=== PATIENT | female | born 1975 | race African-American/Black ===

== ENCOUNTER 2017-05-05 15:54 | Inpatient (IN) ==
[2017-05-05] MEDS ORDERED: Ipratropium/Albuterol Neb 3 ML IH ONE (16:12)
[2017-05-05] MEDS ORDERED: 0.9 % Sodium Chloride 1,000 ML IVC ONE (16:13)
[2017-05-05] MEDS ORDERED: methylPREDNISolone 125 MG/2 ML VIAL IVP ONE (16:13)
--- NOTE | 2017-05-05 16:24 | Emergency Department Note ---
Disposition Clinical Impression: Bilateral pulmonary embolism, Hypoxia Disposition: Admitted As Inpatient Condition: Serious General Adult HPI - General Stated complaint: CRISTOFER, Low O2 Time Seen by Provider: 05/05/17 16:05 Source: patient Nursing Notes Reviewed: Yes Vital Signs Reviewed: Yes - History of Present Illness HPI Narrative: 42-year-old female with history of PE times one year ago was placed on home oxygen after that admission 4 L of home has chief complaint of hypoxia 90 degrees O2 sat at home and worsening cough and congestion 5 days. Patient is currently not on any anticoagulants secondary to bleeding issues while on Xarelto. Pain Scale: 0 - Related Data Home Medications Medication Instructions Recorded Confirmed Albuterol Neb [Proventil Neb] 2.5 mg IH TID 02/13/16 06/15/16 Baclofen [Lioresal] 10 mg PO BID 02/13/16 06/15/16 Metoclopramide [Reglan] 10 mg PO QAM 02/13/16 06/15/16 Ranitidine HCl [Heartburn Relief] 150 mg PO DAILY 02/13/16 06/15/16 Simvastatin [Zocor] 20 mg PO DAILY 02/13/16 06/15/16 Polyethylene Glycol 3350 [MiraLAX] 17 gm PO DAILY PRN 03/12/16 06/15/16 Aspirin [Lo-Dose Aspirin EC] 81 mg PO DAILY 05/08/16 06/15/16 Acetaminophen [Tylenol] 650 mg PO Q6HR PRN 06/15/16 06/15/16 Ferrous Sulfate Oral Soln 220 mg PO DAILY 06/15/16 06/15/16 Lidocaine OINT 1 appl TP DAILY 06/15/16 06/15/16 Previous Rx's Medication Instructions Recorded Clindamycin [Cleocin] 300 mg PO Q8HR 7 Days capsule 06/21/16 Desmopressin Acetate [Ddavp] 0.4 mg PO TID 30 Days tablet 06/21/16 Nutritional Supplement [Ensure] 113 gm PO TIDWM 30 Days container 06/21/16 Allergies Allergy/AdvReac Type Severity Reaction Status Date / Time No Known Allergies Allergy Verified 05/05/17 16:09 Review of Systems: Report by family states no fever no vomiting. No diarrhea. Patient has cough and chest congestion with audible wheezing. Limitations: ROS unobtainable due to patients medical condition Constitutional: Denies: fever Respiratory: Reports: cough, dyspnea, wheezes Past Medical History - Past Medical History Source: obtained from family Medical history: Reports: diabetes, GERD, other Psychiatric history: Reports: no psych history - Social History Smoking Status: Never smoker Smokeless Tobacco Status: No Alcohol use: Reports: none Drug use: Reports: none Physical Exam Vital Signs Temperature 98.2 F 05/05/17 16:02 Pulse Rate 111 05/05/17 16:02 Respiratory Rate 18 05/05/17 16:02 Blood Pressure 139/99 05/05/17 16:02 O2 Sat by Pulse Oximetry 97 05/05/17 16:02 Temperature 98.2 F 05/05/17 16:02 Pulse Rate 111 05/05/17 16:02 Respiratory Rate 18 05/05/17 16:02 Blood Pressure 139/99 05/05/17 16:02 O2 Sat by Pulse Oximetry 97 05/05/17 16:02 Oxygen Delivery Oxygen Delivery Nasal Cannula 42-year-old female who is alert and oriented but unable to answer questions secondary to patient's condition of MRDD. Patient has audible wheezing and wet sounding cough. - General Limitations: language barrier General appearance: alert, in no apparent distress - Head Head exam: atraumatic, normocephalic, normal inspection - Eye Eye exam: Present: normal appearance, PERRL, EOMI. Absent: scleral icterus - ENT ENT exam: mucous membranes moist - Neck Neck exam: Present: normal inspection, full ROM, trachea midline - Chest Chest inspection: Present: normal inspection, symmetric chest wall rise. Absent : tenderness, rash - Respiratory Respiratory exam: Present: wheezes (Wheezes auscultated bilateral lung booker). Absent: normal lung sounds bilaterally - Cardiovascular Cardiovascular exam: Present: tachycardia - Abdominal Exam Abdominal exam: Present: soft, Non-Tender. Absent: tenderness, distention, guarding, rebound, rigidity - Extremities Exam Extremities exam: Present: normal capillary refill. Absent: pedal edema Course - Consultations Consultation #1: Radiology called and stated that Pt has bilateral PE. Time: 19:02 Vital Signs Temperature 98.2 F 05/05/17 16:02 Pulse Rate 111 05/05/17 16:02 Respiratory Rate 18 05/05/17 16:02 Blood Pressure 139/99 05/05/17 16:02 O2 Sat by Pulse Oximetry 97 05/05/17 16:02 Temperature 98.2 F 05/05/17 16:02 Pulse Rate 98 05/05/17 16:50 Respiratory Rate 18 05/05/17 20:08 Blood Pressure 128/62 05/05/17 20:08 O2 Sat by Pulse Oximetry 100 05/05/17 16:50 Oxygen Delivery Oxygen Delivery Nasal Cannula Medical Decision Making - Lab Data Result diagrams: 05/05/17 16:10 05/05/17 16:10 - Radiology Data Radiology results reviewed: Yes I reviewed the patient's radiology results. - EKG Data EKG #1 EKG attestation: Yes I reviewed and interpreted this EKG. EKG results narrative: EKG taken into April 2017 1637 hrs. shows a sinus tachycardia at a rate of 10 2 bpm with no acute ST elevations or depressions in any leads, no QS widening or QT prolongations. This EKG was compared to previous EKG taken at 2015 which shows a sinus tachycardia at a rate of 1 29 bpm. Both EKGs are characteristic for shortened DC intervals with no Slurring of the QRS. Critical Care Time Critical Care Time: No
--- NOTE | 2017-05-05 16:39 | Emergency Department Note ---
START Narrative - START START: I examined this patient and my medical decision-making was reviewed with the Resident Physician. I agree with the documented findings, disposition and treatment plan as described except to the extent set forth below. 42-year-old female with a history of MRDD presents with shortness of breath and wheezing. Worse over the past 5 days. Wears chronic home oxygen. She wears 4 L chronically. She is remaining at 4 L. The family has noticed increasing difficulty in breathing as well as increased wheezing and coughing. No documented fevers. She does have a history of mucous plugging secondary to pneumonia. She has had a previous bronchoscopy before for this mucous plugging. She has been compliant with her home breathing treatments. No sick contacts at home. We will workup from a respiratory and cardiac standpoint. Patient will need to be admitted based on physical exam. Patient has a high risk for aspiration pneumonia. Possible CT of the chest pending her d-dimer. There was a history of a possible pulmonary embolus one year ago per the family. She had been on Xarelto but had bleeding complications and had to have a blood transfusion so they stopped it. In review of the chart, the patient had a CT of the chest done at that time which did not show any acute pulmonary embolus. Her lower extremity Doppler of the left side was also negative per the report.
[2017-05-05 17:36] LABS: Basophils # 0.1 K/mcL (0.0-0.2); Basophils % 0.6 %; Eosinophils # 0.3 K/mcL (0.0-0.6); Hematocrit 35.5 % (35.3-44.9); Hemoglobin 11.1 g/dL (11.5-15.4); Immature Granulocytes % 0.2 % (0-4); Lymphocytes # 1.2 K/mcL (0.6-4.6); Lymphocytes % 12.7 %; Mean Corpuscular HGB Conc 31.3 g/dL (31.6-35.5); Mean Corpuscular Volume 83.1 fL (83.0-100.0); Mean Platelet Volume 11.5 fL (9.4-12.4); Monocytes # 1.2 K/mcL (0.0-1.3); Neutrophils # 6.4 K/mcL (1.6-8.9); Platelet Count 252 K/mcL (140-400); Red Blood Count 4.27 M/mcL (3.82-4.97); Red Cell Distribution Width 16.2 % (11.5-14.5); Segmented Neutrophils % 70.5 %
[2017-05-05 17:53] LABS: BUN/Creatinine Ratio 7 (6-26); Calcium 9.4 mg/dL (8.6-10.8); Carbon Dioxide 29 mEq/L (19-29); Chloride 96 mEq/L (98-109); Glucose 58 mg/dL (70-99); Osmolality,Calculated 273 (280-300); Potassium 4.3 mEq/L (3.5-4.5); Sodium 134 mEq/L (136-145); eGFR For African Americans > 60 (> 60); eGFR For Non-African Americans > 60 (> 60)
[2017-05-05 18:02] LABS: Blood Urea Nitrogen 5 mg/dL (7-20)
[2017-05-05] MEDS ORDERED: *HR* Enoxaparin 30 MG/0.3 ML SYRINGE SQ STA (19:00)
[2017-05-05] MEDS ORDERED: Naloxone 0.4 MG/ML INJ IVP PRN (21:12)
--- NOTE | 2017-05-05 21:24 | Internal Med History&Physical ---
Date of Encounter: 05/05/17 Time of Encounter: 21:22 Assessment and Plan (1) Bilateral pulmonary embolism Current visit: Yes Status: Acute She is experiencing mild respiratory distress, has wheezing and rales in bilateral lobes. Found multiple pulmonary emboli. Maintaining O2 sats on 3LNC , resting comfortably Consult hematology oncology - previously on Xarelto, stopped d/t anemia from menorrhagia. H/o factor V leiden, recurrent PE's, needing long-term anticoagulation- days team to call Speech consult for Swallow eval, risk for aspiration pneumonia- days team to call Duoneb Q4hr marisela for SOB and wheezing Solumedrol 40mg Q8hrs for SOB and wheezing 0.9% IVF at 50ml/hr since she just had contrast Lovenox 30mg SC Q12 hrs Continuous tele and continuous SPO2 monitoring. Respiratory support as needed. (2) Hypoxemia Current visit: Yes Status: Acute multiple pulmonary emboli. See plan above (3) Factor V Leiden Current visit: No Status: Acute h/o, factor V leiden, multiple DVT's and recurring PE's. Consulting hematology for further recommendations. (4) Cerebral palsy Current visit: Yes Status: Chronic Qualifiers: Cerebral palsy type: unspecified type Qualified Code(s): G80.9 - Cerebral palsy, unspecified (5) Diabetes insipidus Current visit: Yes Status: Chronic h/o DI, reporting no increase in urinary frequency or volume, metabolic panel unremarkable, continue desmopressin (6) DVT prophylaxis Current visit: Yes Status: Acute Lovenox 1mg/kg; 30mg SC BID Internal Medicine - H&P: HPI Chief complaint: BL PE's, dyspnea Admitted From: Home Plans for Post Hospital Care: Home History of present illness: [place] is a 42 year old female with a PMH of GERD cerebral palsy, diabetes insipidus, factor 5 leiden, DVT, and PE. She presents to [facility] today with a 5 day h/o increasing SOB and wheezing. All information obtained from chart review and family/caregivers who are at bedside. Family reports that approximately five days ago she began wheezing and requiring more oxygen. She has home O2 and wears it on a PRN basis. They report that she was requiring 4LNC all day d/t SOB and wheezing. They continue her home breathing treatments but it did not seem to help. She was brought to the ED today in respiratory distress on 4LNC. She was found to have a positive D-dimer of 589, CTA chest reveal multiple pulmonary emboli. Past Med Surg Social Fam HX - Past Medical History Medical history: diabetes, GERD, other Psychiatric history: no psych history - Social History Smoking Status: Never smoker Smokeless Tobacco Status: No Alcohol use: none Drug use: none - Family History Mother Adopted: No Living Status: Still Living Hx Family Cardiac Disorders: Yes Hx Family Endocrine Disorder: Yes Internal Medicine - H&P: Meds Albuterol Neb [Proventil Neb] 2.5 mg IH TID 02/13/16 [History] Baclofen [Lioresal] 10 mg PO BID 02/13/16 [History] Metoclopramide [Reglan] 10 mg PO QAM 02/13/16 [History] Ranitidine HCl [Heartburn Relief] 150 mg PO DAILY 02/13/16 [History] Simvastatin [Zocor] 20 mg PO DAILY 02/13/16 [History] Polyethylene Glycol 3350 [MiraLAX] 17 gm PO DAILY PRN 03/12/16 [History] Aspirin [Lo-Dose Aspirin EC] 81 mg PO DAILY 05/08/16 [History] Acetaminophen [Tylenol] 650 mg PO Q6HR PRN 06/15/16 [History] Ferrous Sulfate Oral Soln 220 mg PO DAILY 06/15/16 [History] Lidocaine OINT 1 appl TP DAILY 06/15/16 [History] Clindamycin [Cleocin] 300 mg PO Q8HR 7 Days capsule 06/21/16 [Rx] Desmopressin Acetate [Ddavp] 0.4 mg PO TID 30 Days tablet 06/21/16 [Rx] Nutritional Supplement [Ensure] 113 gm PO TIDWM 30 Days container 06/21/16 [Rx] 3 Allergy/AdvReac Type Severity Reaction Status Date / Time No Known Allergies Allergy Verified 05/05/17 16:09 All Systems PM: A 10-system review of systems was performed and is negative for pertinent findings except as documented above in the HPI. - Constitutional Constitutional: no chills, no fever(s), no night sweats - Cardiovascular Cardiovascular ROS IM: as per HPI - Respiratory Respiratory: as per HPI, dyspnea on exertion, wheezing - Gastrointestinal Gastrointestinal: no abdominal pain, no diarrhea, no hematemesis, no hematochezia, no melena, no nausea, no vomiting - Genitourinary Genitourinary: no change in urinary stream, no dysuria, no flank pain, no hematuria - Musculoskeletal Musculoskeletal ROS IM: no numbness, no tingling - Integumentary Integumentary IM: no rash, no unusual bruising - Constitutional Vitals: Temp Pulse Resp BP Pulse Ox 98.6 F 86 16 119/70 100 05/05/17 21:09 05/05/17 21:09 05/05/17 21:09 05/05/17 21:09 05/05/17 21:09 General appearance: Present: cooperative, A&O X 1, no acute distress - Head Head exam: Present: atraumatic, normocephalic - Eye Eye exam: Present: PERRL, conjuntiva pink, sclera anicteric Pupils: Present: PERRL - Neck Neck exam general surgery: Present: supple, trachea midline. Absent: lymphadenopathy - Respiratory Respiratory exam: Present: CTAB, rhonchi, wheezes, tachypnea. Absent: accessory muscle use, chest wall tenderness, rales, respiratory distress - Cardiovascular Cardiovascular exam: Present: RRR, +S1, +S2. Absent: diastolic murmur, gallop, rubs, systolic murmur - Extremities Exam Extremities exam: Present: normal capillary refill, warm, radial pulses palpable and symmetrical. Absent: calf tenderness, cyanotic, joint swelling, pedal edema, tenderness - Neurological Exam Neurological exam: Present: altered Additional comments: ALTERED PER PATIENTS NORMAL - Skin Skin exam: Present: dry, intact Internal Med - H&P Results - Labs CBC & Chem 7: 05/05/17 16:10 05/05/17 16:10 - Diagnostic Studies Chest x-ray Status: image reviewed by me Additional comments: LOW LUNG VOLUMES. NO ACUTE PROCESS CT scan - chest Status: image reviewed by me Additional comments: Multiple pulmonary emboli; bilateral lower lobes, left upper PA and lingular PA without corpulmonale. new lesion on Rt hepatic lobe. Non-emergent will need additional imaging in the future.
[2017-05-05] MEDS: Ipratropium/Albuterol Neb 3 ML IH SCH (22:53)
[2017-05-05] MEDS: MethylPREDNISolone 40 MG/ML VIAL IVP SCH (23:48)
[2017-05-05] MEDS: 0.9 % Sodium Chloride 1,000 ML IVC SCH (23:48)
[2017-05-06] MEDS: Ipratropium/Albuterol Neb 3 ML IH SCH ×6 (03:45→23:41)
[2017-05-06 04:46] LABS: Hematocrit 34.8 % (35.3-44.9); Immature Granulocytes % 0.3 % (0-4); Lymphocytes # 0.5 K/mcL (0.6-4.6); Lymphocytes % 8.9 %; Mean Corpuscular HGB Conc 31.6 g/dL (31.6-35.5); Mean Corpuscular Hemoglobin 25.9 pg (28.0-33.3); Mean Corpuscular Volume 82.1 fL (83.0-100.0); Mean Platelet Volume 10.9 fL (9.4-12.4); Monocytes % 0.7 %; Neutrophils # 5.2 K/mcL (1.6-8.9); Platelet Count 259 K/mcL (140-400); Red Blood Count 4.24 M/mcL (3.82-4.97); Red Cell Distribution Width 16.5 % (11.5-14.5); Segmented Neutrophils % 90.1 %
[2017-05-06 05:03] LABS: BUN/Creatinine Ratio 8 (6-26); Blood Urea Nitrogen 6 mg/dL (7-20); Calcium 9.4 mg/dL (8.6-10.8); Carbon Dioxide 28 mEq/L (19-29); Chloride 107 mEq/L (98-109); Glucose 149 mg/dL (70-99); Osmolality,Calculated 294 (280-300); Potassium 4.4 mEq/L (3.5-4.5); Sodium 142 mEq/L (136-145); eGFR For African Americans > 60 (> 60); eGFR For Non-African Americans > 60 (> 60)
[2017-05-06] MEDS: *HR* Enoxaparin 30 MG/0.3 ML SYRINGE SQ SCH ×2 (07:17→17:34)
--- NOTE | 2017-05-06 08:40 | Internal Med Progress Note ---
<Edmund Cabrera - Last Filed: 05/06/17 11:44> Date of Encounter: 05/06/17 Time of Encounter: 08:29 - Assessment and plan (1) Bilateral pulmonary embolism Current Visit: Yes Status: Acute Assessment and plan: Breathing mildly improved per mother. Bilateral rhonchi and wheezes present. CTA on 05/05: bilateral PE. O2 sat 99 on 4L NC. Plan: Hematology consult - Hx of factor V leiden, recurrent PE's. Previously on xarelto, stopped d/t anemia from menorrhagia Speech consult for swallow evaluation and risk for aspiration Continue duonebs, solumedrol, and IVFs Lovenox BID (2) Hypoxia Current Visit: Yes Status: Acute Assessment and plan: Plan as above (3) Factor V Leiden Current Visit: No Status: Acute Assessment and plan: Hx of factor V leiden with recurrent PE's Xarelto stopped d/t anemia from menorrhagia Plan: Consult hematology - appreciate recommendations Continue Lovenox Check PT/INR (4) Hepatic lesion Current Visit: Yes Status: Acute Assessment and plan: Chest CTA showed enhancing lesion within right hepatic lobe not previously visualized Plan: Follow-up CT abdomen/pelvis for further evaluation (5) Cerebral palsy Current Visit: Yes Status: Chronic Qualifiers: Cerebral palsy type: unspecified type Qualified Code(s): G80.9 - Cerebral palsy, unspecified (6) Diabetes insipidus Current Visit: Yes Status: Chronic Assessment and plan: Hx of DI on desmopression. No increase in urinary frequency (7) DVT prophylaxis Current Visit: Yes Status: Acute Assessment and plan: Lovenox BID No lower extremity edema - Subjective Interval history: Pt seen and examined. History from mother. Reports she presented with 5 day history of shortness of breath, but her breathing seems to be mildly improved this morning. On home oxygen PRN, previously on continuous O2.. Currently on 4L NC. She does cough after her breathing treatments. Denies other complaints/ concerns, denies chest pain, abdominal pain, vomiting, diarrhea, or lower extremity edema. - Constitutional Vitals: Temp Pulse Resp BP Pulse Ox 98.8 F 74 18 105/73 100 05/06/17 06:45 05/06/17 06:45 05/06/17 07:53 05/06/17 06:45 05/06/17 07:53 General appearance: Present: cooperative, A&O X 1, no acute distress - Head Head exam: Present: atraumatic, normocephalic - Eye Eye exam: Present: conjuntiva pink, sclera anicteric - ENT ENT exam: Present: mucous membranes moist - Neck Neck exam general surgery: Present: supple, trachea midline. Absent: lymphadenopathy - Respiratory Respiratory exam: Present: rhonchi (bilaterally), wheezes. Absent: tachypnea - Cardiovascular Cardiovascular exam: Present: RRR, +S1, +S2. Absent: diastolic murmur, systolic murmur - GI/Abdominal GI/Abdominal exam: Present: normal bowel sounds, soft, no peritoneal signs. Absent: distended, tenderness - Extremities Exam Extremities exam: Present: warm, radial pulses palpable and symmetrical. Absent : cyanotic, pedal edema - Neurological Exam Neurological exam: Present: altered (pt at baseline). Absent: facial droop - Skin Skin exam: Present: dry, intact Internal Medicine: Result - Labs CBC & Chem 7: 05/06/17 04:30 05/06/17 04:30 Labs: Short CBC 05/06/17 Range/Units 04:30 WBC 5.7 (4.3-11.1) K/mcL Hgb 11.0 L (11.5-15.4) g/dL Hct 34.8 L (35.3-44.9) % Plt Count 259 (140-400) K/mcL Neutrophils # 5.2 (1.6-8.9) K/mcL BMP 05/06/17 04:30 Sodium 142 D Potassium 4.4 Chloride 107 Carbon Dioxide 28 BUN 6 L Creatinine 0.71 Glucose 149 H Calcium 9.4 - ABG Interpretation ABG results: PT/INR, D-dimer D-Dimer 589 ng/mLFEU (0-500) H 05/05/17 16:10 Consult Discharge Plan - Plan Referrals: Chandan Serrano MD [Primary Care Provider] - 05/15/17 2:15 pm <Trevon Archuleta - Last Filed: 05/06/17 18:14> Date of Encounter: 05/06/17 - Assessment and plan (1) Acute respiratory failure with hypoxia Current Visit: Yes Status: Acute (2) Bilateral pulmonary embolism Current Visit: Yes Status: Acute (3) Cerebral palsy Current Visit: Yes Status: Chronic Qualifiers: Cerebral palsy type: unspecified type Qualified Code(s): G80.9 - Cerebral palsy, unspecified (4) Diabetes insipidus Current Visit: Yes Status: Chronic (5) Factor V Leiden Current Visit: No Status: Acute (6) Dysphagia Current Visit: No Status: Acute Qualifiers: Dysphagia type: oropharyngeal phase Qualified Code(s): R13.12 - Dysphagia, oropharyngeal phase - Constitutional Vitals: Temp Pulse Resp BP Pulse Ox 97.9 F 88 18 126/72 96 05/06/17 15:38 05/06/17 15:38 05/06/17 16:22 05/06/17 15:38 05/06/17 16:22 Internal Medicine: Result - Labs CBC & Chem 7: 05/06/17 04:30 05/06/17 04:30 Labs: Short CBC 05/06/17 Range/Units 04:30 WBC 5.7 (4.3-11.1) K/mcL Hgb 11.0 L (11.5-15.4) g/dL Hct 34.8 L (35.3-44.9) % Plt Count 259 (140-400) K/mcL Neutrophils # 5.2 (1.6-8.9) K/mcL BMP 05/06/17 04:30 Sodium 142 D Potassium 4.4 Chloride 107 Carbon Dioxide 28 BUN 6 L Creatinine 0.71 Glucose 149 H Calcium 9.4 - ABG Interpretation ABG results: PT/INR, D-dimer PT 13.2 Seconds (9.4-12.1) H 05/06/17 09:56 D-Dimer 589 ng/mLFEU (0-500) H 05/05/17 16:10 - Impressions Impressions Videofluoroscopic Swallow 05/06/17 08:44 IMPRESSION: Penetration and aspiration on the thin liquid and nectar consistencies of barium and penetration without aspiration on the honey consistency of barium. Please see separate speech pathology report for full discussion of findings and recommendations. D/ / Kal Martinez MD / Kal Martinez MD Interpreting Provider: Kal Martinez MD Abdomen/Pelvis CT 05/06/17 15:00 IMPRESSION: 1. The examination is limited due to extensive motion artifact and streak artifact related to the ingested barium from the modified barium swallow of the same day. 2. The posterior right hepatic lobe peripheral hyperenhancement seen on the CTA of the chest may have represented a transient hepatic attenuation difference. No definite mass. 3. Stable moderate focal stool at the rectosigmoid junction which may relate to impaction. 4. No acute abdominal/pelvic process. D/ / 05/06/2017 17:08:19 Yousif Aden MD / maira Interpreting Provider: Yousif Aden MD - Attending Attestation I examined this patient and my medical decision-making was reviewed with the Resident Physician on 05/06/17. I agree with the documented findings, disposition and treatment plan as described except to the extent set forth below. Ms Fairchild is currently admitted for acute bilateral PE in setting of Factor V Leiden. She remains moderate to high risk due to potential for worsening clinical status. Ms Fairchild is resting comfortably. She has had diet adjusted for dysphagia. On Lovenox and will transition to Coumadin. No fever or chills. Exam Alert. Comfortable Mucus membranes dry Heart reg Lungs with wheeze Abd soft I/P 1. Bilateral PE 2. Factor V Leiden 3. Cerebral palsy Further diagnoses and plan as above.
[2017-05-06] MEDS ORDERED: Ferrous Sulfate Oral Soln 300 MG/5 ML UDC PO SCH (09:00)
[2017-05-06] MEDS ORDERED: Aspirin Enteric Coated 81 MG Tablet PO SCH (09:00)
[2017-05-06] MEDS: MethylPREDNISolone 40 MG/ML VIAL IVP SCH ×3 (10:00→23:44)
[2017-05-06 10:13] LABS: INR 1.2; Prothrombin Time 13.2 Seconds (9.4-12.1)
--- NOTE | 2017-05-06 14:07 | Electrocardiograph Report ---
[place] [address] Test Date: 2017-05-05 Pat Name: Ro Fairchild Department: 102 Room: 2NE30 Gender: F Treatment Supervisor: Lloyd : 1975 Requested By: Haja Puentes Order Number: [id number] Reading MD: Chaya Rasheed Measurements Intervals Reading Rate: 102 P: 69 AL: 117 QRS: 3 QRSD: 92 T: 61 QT: 316 QTc: 375 Interpretive Statements SINUS TACHYCARDIA ABNORMAL RHYTHM ECG ARTIFACT Electronically Signed On 05-06-2017 14:05:25 EDT by Chaya Rasheed
[2017-05-06] MEDS: Famotidine 20 MG TABLET PO SCH (15:59)
[2017-05-06] MEDS: Baclofen 10 MG TABLET PO SCH ×2 (15:59→20:47)
--- NOTE | 2017-05-06 16:07 | Oncology Inp Consult Note ---
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 She has a history of menorrhagia, that worsened while on xarelto, so antiocoagulation was being held prior to recent admission. Plan of care discussed with family. - She has not been seen by Labor Relations Representative for her history of menorrhagia. Her family reports that she has been off xarelto for several months, but still presenting persistent menorrhagia ( last menstrual cycle one month ago lasted for 15 days) even in the absence of anticoagulation. She would benefit of a Labor Relations Representative inpatient consultation to discuss pharmacologic measures to manage her menorrhagias ( hormonal treatments, e.g depo provera injections). - Her current clinical presentation is consistent with recurrent PE as noticed in CT angio ( although the quality was not optimal), last PE was approximately one year ago. In view of her history of recurrent VTE, and underlying factor V leiden, she would require intermediate anticoagulation. Other than menorrhagia, there are not significant bleeding complications, so I think that once her menorrhagia is controlled, long winder tender anticoagulation would be reasonable. - Regarding the options for anticoagulation, in view of her low BMI, the idea option would be coumadin. Lovenox or the new anticoagulants would not be the best option in view of her low BMI, but could be a consideration in the future if INR monitoring becomes cumbersome for the patient and family, as well as the are aware that the new anticoagulants ( apixaban, xarelto, etc) has not been appropriately studied in patients with low BMI, and probably there is an elevated risk of bleeding ( in view that at this time we are unable to check serum levels). Plan: - Continue lovenox 30 mg SQ BID, and transitioned to coumadin. Discontinue Lovenox once INR is 2.0 or above. - Suggested initial coumadin dose: 2.5 mg PO daily. INR goal: 2.0-3.0. - Duration : indefinite, unless patient experiences significant bleeding complications. - Please request inpatient Labor Relations Representative consultation to discuss the option to start hormonal treatment to control menorrhagia. Hormonal treatments could increase the risk of thrombosis, but this should be compensated with being on full anticoagulation with coumadin. - Nurse manager engagement will inquire whether home service could use her port for INR check ups ( at home), although patient's mother expressed her preference to bring patient to the cancer center instead ( for blood draws for INR testing). - Upon discharge, please arrange for follow up at [facility] in 1- 2 months. Qualifiers: Pulmonary embolism type: other Chronicity: acute Acute cor pulmonale presence: without acute cor pulmonale Qualified Code(s): I26.99 - Other pulmonary embolism without acute cor pulmonale (2) Abnormal CT of liver Status: Acute Assessment and plan: CT chest showed possible enhancing liver lesion within the right hepatic lobe. I agree with completing a CT liver for further assessment. - Data of Consult Requesting Physician: Trevon Archuleta DO Primary Care Provider: Chandan Serrano MD - Consult Narrative Reason for consult: management of recurrent VTE History of present illness: Ms. Fairchild is a 42 year old female with history of VTE admitted due to worsening oxygen requirements and found to have CT chest findings suggestive of recurrent PE. Hematology consult requested for management of recurrent PE. Although the study is limited by motion artifact, there appear to be bilateral PE without evidence of right heart strain. She is improving since anticoagulation was resumed, currently receiving lovenox 30 mg SQ BID. She has not had significant bleeding complications since then. Her family reports that she experiences menorrhagia, last menstrual period one month ago lasted for 15 days, even in the absence of full anticoagulation ( since xarelto was discontinued several months ago). Her lower extremity US from 03/21/16 showed a acute DVT in the left common femoral and superficial veins, that had resolved in follow up US from May 2016. Her past medical history is significant for factor V leiden ( heterozygous). She is wheelchair dependent for mobility what is related to underlying neuromuscular sequela of cerebral palsy and cognitive /developmental delay. Past Med Surg Social Fam HX - Past Medical History Medical history: diabetes, GERD, other Psychiatric history: no psych history - Social History Smoking Status: Never smoker Smokeless Tobacco Status: No Alcohol use: none Drug use: none - Family History Mother Adopted: No Living Status: Still Living Hx Family Cardiac Disorders: Yes (HTN) Hx Family Endocrine Disorder: Yes (T2DM) Medications and Allergies Albuterol Neb [Proventil Neb] 2.5 mg IH TID 02/13/16 [History] Baclofen [Lioresal] 10 mg PO BID 02/13/16 [History] Ranitidine HCl [Heartburn Relief] 150 mg PO DAILY 02/13/16 [History] Simvastatin [Zocor] 20 mg PO DAILY 02/13/16 [History] Polyethylene Glycol 3350 [MiraLAX] 17 gm PO DAILY PRN 03/12/16 [History] Aspirin [Lo-Dose Aspirin EC] 81 mg PO DAILY 05/08/16 [History] Acetaminophen [Tylenol] 650 mg PO Q6HR PRN 06/15/16 [History] Ferrous Sulfate Oral Soln 220 mg PO DAILY 06/15/16 [History] Desmopressin Acetate [Ddavp] 0.4 mg PO TID 30 Days tablet 06/21/16 [Rx] Nutritional Supplement [Ensure] 113 gm PO TIDWM 30 Days container 06/21/16 [Rx] 3 Allergy/AdvReac Type Severity Reaction Status Date / Time No Known Allergies Allergy Verified 05/05/17 16:09 ROS unobtainable: due to mental status Oncology - Exam - Constitutional Vitals: Temp Pulse Resp BP Pulse Ox 97.9 F 88 18 126/72 99 05/06/17 15:38 05/06/17 15:38 05/06/17 15:38 05/06/17 15:38 05/06/17 15:38 - Head Head exam: Present: normal inspection - Eye Eye exam: Present: normal appearance - ENT ENT exam: Present: normal exam - Neck Neck exam: Absent: lymphadenopathy - Respiratory Respiratory exam: Present: rales, rhonchi - Cardiovascular Cardiovascular exam: Present: RRR. Absent: diastolic murmur - GI/Abdominal GI/Abdominal exam: Present: normal bowel sounds. Absent: organomegaly - Extremities Exam Extremities exam: Present: normal inspection. Absent: pedal edema - Skin Skin exam: Present: normal color Oncology - Results Labs: Short CBC 05/06/17 Range/Units 04:30 WBC 5.7 (4.3-11.1) K/mcL Hgb 11.0 L (11.5-15.4) g/dL Hct 34.8 L (35.3-44.9) % Plt Count 259 (140-400) K/mcL Neutrophils # 5.2 (1.6-8.9) K/mcL BMP 05/06/17 04:30 Sodium 142 D Potassium 4.4 Chloride 107 Carbon Dioxide 28 BUN 6 L Creatinine 0.71 Glucose 149 H Calcium 9.4 Consult Discharge Plan - Plan Referrals: Chandan Serrano MD [Primary Care Provider] - 05/15/17 2:15 pm
[2017-05-06] MEDS: Lidocaine 4% CREAM (LMX) 5 GM TP SCH (16:15)
[2017-05-06] MEDS ORDERED: *HR* Warfarin 2.5 MG TABLET PO ONE (18:00)
[2017-05-06] MEDS ORDERED: Warfarin perPT PO PRN (18:00)
[2017-05-06] MEDS: 0.9 % Sodium Chloride 1,000 ML IVC SCH (23:47)
[2017-05-07] MEDS: Ipratropium/Albuterol Neb 3 ML IH SCH ×6 (03:50→23:32)
[2017-05-07 04:19] LABS: INR 1.2; Prothrombin Time 12.6 Seconds (9.4-12.1)
[2017-05-07 04:23] LABS: Hematocrit 32.2 % (35.3-44.9); Hemoglobin 9.9 g/dL (11.5-15.4); Immature Granulocytes % 0.5 % (0-4); Lymphocytes # 0.5 K/mcL (0.6-4.6); Lymphocytes % 7.5 %; Mean Corpuscular HGB Conc 30.7 g/dL (31.6-35.5); Mean Corpuscular Volume 84.5 fL (83.0-100.0); Mean Platelet Volume 11.1 fL (9.4-12.4); Monocytes # 0.3 K/mcL (0.0-1.3); Monocytes % 4.2 %; Neutrophils # 5.7 K/mcL (1.6-8.9); Platelet Count 293 K/mcL (140-400); Red Blood Count 3.81 M/mcL (3.82-4.97); Red Cell Distribution Width 17.1 % (11.5-14.5); Segmented Neutrophils % 87.8 %
[2017-05-07 04:36] LABS: Alanine Aminotransferase 13 Units/L (0-55); Albumin 3.3 g/dL (3.5-5.0); Albumin/Globulin Ratio 0.9 (1.1-2.2); Alkaline Phosphatase 72 Units/L (38-126); Aspartate Amino Transferase 25 Units/L (5-34); BUN/Creatinine Ratio 14 (6-26); Bilirubin,Total 0.3 mg/dL (0.2-1.2); Blood Urea Nitrogen 11 mg/dL (7-20); Calcium 9.2 mg/dL (8.6-10.8); Carbon Dioxide 27 mEq/L (19-29); Chloride 112 mEq/L (98-109); Globulin 3.8 g/dL (2.4-3.5); Glucose 126 mg/dL (70-99); Osmolality,Calculated 307 (280-300); Potassium 4.4 mEq/L (3.5-4.5); Sodium 148 mEq/L (136-145); Total Protein 7.1 g/dL (6.0-8.3); eGFR For African Americans > 60 (> 60); eGFR For Non-African Americans > 60 (> 60)
[2017-05-07] MEDS: *HR* Enoxaparin 30 MG/0.3 ML SYRINGE SQ SCH ×2 (05:00→18:34)
[2017-05-07] MEDS ORDERED: Acetaminophen 325 MG TABLET PO PRN (08:15)
[2017-05-07] MEDS: MethylPREDNISolone 40 MG/ML VIAL IVP SCH ×2 (11:36→18:38)
[2017-05-07] MEDS ORDERED: Ipratropium/Albuterol Neb 3 ML IH ONE (11:36)
[2017-05-07] MEDS: Lidocaine 4% CREAM (LMX) 5 GM TP SCH (11:37)
[2017-05-07] MEDS: Famotidine 20 MG TABLET PO SCH (11:37)
[2017-05-07] MEDS: Baclofen 10 MG TABLET PO SCH ×2 (11:37→19:56)
[2017-05-07] MEDS ORDERED: *HR* LORazepam 2 MG/ML VIAL IVP ONE (14:44)
--- NOTE | 2017-05-07 15:06 | Internal Med Progress Note ---
<Miles Israel P - Last Filed: 05/07/17 18:05> Date of Encounter: 05/07/17 - Constitutional Vitals: Temp Pulse Resp BP Pulse Ox 98.4 F 100 20 133/83 96 05/07/17 05:03 05/07/17 15:00 05/07/17 16:48 05/07/17 15:00 05/07/17 16:48 Internal Medicine: Result - Labs CBC & Chem 7: 05/07/17 03:42 05/07/17 03:42 Labs: Short CBC 05/07/17 Range/Units 03:42 WBC 6.4 (4.3-11.1) K/mcL Hgb 9.9 L (11.5-15.4) g/dL Hct 32.2 L (35.3-44.9) % Plt Count 293 (140-400) K/mcL Neutrophils # 5.7 (1.6-8.9) K/mcL BMP 05/07/17 03:42 Sodium 148 H Potassium 4.4 Chloride 112 H Carbon Dioxide 27 BUN 11 Creatinine 0.79 Glucose 126 H Calcium 9.2 Liver Function 05/07/17 Range/Units 03:42 Total Bilirubin 0.3 (0.2-1.2) mg/dL AST 25 (5-34) Units/L ALT 13 (0-55) Units/L Alkaline Phosphatase 72 (38-126) Units/L Albumin 3.3 L (3.5-5.0) g/dL - ABG Interpretation ABG results: ABG ABG pH 7.33 pH Units (7.32-7.45) 05/07/17 15:10 ABG pCO2 57 mmHg (35-45) H 05/07/17 15:10 ABG pO2 82 mmHg (85-104) L 05/07/17 15:10 ABG O2 Saturation 95 % (95-98) 05/07/17 15:10 PT/INR, D-dimer PT 12.6 Seconds (9.4-12.1) H 05/07/17 03:42 D-Dimer 589 ng/mLFEU (0-500) H 05/05/17 16:10 - Impressions Impressions Abdomen/Pelvis CT 05/06/17 15:00 IMPRESSION: 1. The examination is limited due to extensive motion artifact and streak artifact related to the ingested barium from the modified barium swallow of the same day. 2. The posterior right hepatic lobe peripheral hyperenhancement seen on the CTA of the chest may have represented a transient hepatic attenuation difference. No definite mass. 3. Stable moderate focal stool at the rectosigmoid junction which may relate to impaction. 4. No acute abdominal/pelvic process. D/ / 05/06/2017 17:08:19 Yousif Aden MD / maira Interpreting Provider: Yousif Aden MD Chest X-Ray 05/07/17 15:12 IMPRESSION: No acute process. D/ / Temo Montano MD / Temo Montano MD Interpreting Provider: Temo Montano MD Consult Discharge Plan - Plan Referrals: Chandan Serrano MD [Primary Care Provider] - 05/15/17 2:15 pm - Attending Attestation I examined this patient and my medical decision-making was reviewed with the Resident Physician. I agree with the documented findings, disposition and treatment plan as described except to the extent set forth below. <Edmund Cabrera - Last Filed: 05/07/17 18:12> Date of Encounter: 05/07/17 Time of Encounter: 14:57 - Assessment and plan (1) Bilateral pulmonary embolism Current Visit: Yes Status: Acute Assessment and plan: Breathing worse today. Suspect Bilateral rhonchi and wheezes present. CTA on : bilateral PE. Plan: Hematology consult - Hx of factor V leiden, recurrent PE's. Previously on xarelto, stopped d/t anemia from menorrhagia Speech consult for swallow evaluation and risk for aspiration - recommend honey thickened fluids - currently NPO due to worsening breathing and aspiration concern Continue duonebs, solumedrol, and IVFs Lovenox BID (2) Aspiration pneumonia Current Visit: Yes Status: Acute Assessment and plan: Worsening breathing today. CXR concerning for hospital acquired aspiration pneumonia. Plan: Start antibiotics - vancomycin, zosyn, and levaquin Breathing treatments Ativan PRN to decrease agitation and work of breathing Qualifiers: Aspiration pneumonia type: unspecified Laterality: right Lung location: lower lobe of lung Qualified Code(s): J69.0 - Pneumonitis due to inhalation of food and vomit (3) Hypoxia Current Visit: Yes Status: Acute Assessment and plan: Plan as above (4) Factor V Leiden Current Visit: No Status: Acute Assessment and plan: Hx of factor V leiden with recurrent PE's Xarelto stopped d/t anemia from menorrhagia Plan: Consult hematology - appreciate recommendations Continue Lovenox and bridge to Coumadin Check PT/INR Discussed menorrhagia with Dr. 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 No increase in urinary frequency (8) DVT prophylaxis Current Visit: Yes Status: Acute Assessment and plan: Lovenox BID No lower extremity edema - Subjective Interval history: Pt seen and examined. History from mother. Pt is having more respiratory distress today. Awake all night for the third straight day. On home oxygen PRN, previously on continuous O2. She does cough after her breathing treatments. Denies other complaints/concerns, denies chest pain, abdominal pain, vomiting, diarrhea, or lower extremity edema. - Constitutional Vitals: Temp Pulse Resp BP Pulse Ox 98.4 F 107 16 144/81 96 05/07/17 05:03 05/07/17 07:00 05/07/17 11:46 05/07/17 07:00 05/07/17 11:46 General appearance: Present: cooperative, A&O X 1, mild distress - Head Head exam: Present: atraumatic, normocephalic - Eye Eye exam: Present: conjuntiva pink, sclera anicteric - ENT ENT exam: Present: mucous membranes moist - Neck Neck exam general surgery: Present: supple, trachea midline - Respiratory Respiratory exam: Present: rhonchi (bilaterally). Absent: accessory muscle use , rales, wheezes - Cardiovascular Cardiovascular exam: Present: RRR, +S1, +S2. Absent: diastolic murmur, systolic murmur - GI/Abdominal GI/Abdominal exam: Present: normal bowel sounds, soft, no peritoneal signs. Absent: distended, tenderness - Extremities Exam Extremities exam: Present: warm, radial pulses palpable and symmetrical. Absent : calf tenderness, cyanotic, pedal edema - Neurological Exam Neurological exam: Present: no focal deficits - Skin Skin exam: Present: dry, intact Internal Medicine: Result - Labs CBC & Chem 7: 05/07/17 03:42 05/07/17 03:42 Labs: Short CBC 05/07/17 Range/Units 03:42 WBC 6.4 (4.3-11.1) K/mcL Hgb 9.9 L (11.5-15.4) g/dL Hct 32.2 L (35.3-44.9) % Plt Count 293 (140-400) K/mcL Neutrophils # 5.7 (1.6-8.9) K/mcL BMP 05/07/17 03:42 Sodium 148 H Potassium 4.4 Chloride 112 H Carbon Dioxide 27 BUN 11 Creatinine 0.79 Glucose 126 H Calcium 9.2 Liver Function 05/07/17 Range/Units 03:42 Total Bilirubin 0.3 (0.2-1.2) mg/dL AST 25 (5-34) Units/L ALT 13 (0-55) Units/L Alkaline Phosphatase 72 (38-126) Units/L Albumin 3.3 L (3.5-5.0) g/dL - ABG Interpretation ABG results: PT/INR, D-dimer PT 12.6 Seconds (9.4-12.1) H 05/07/17 03:42 D-Dimer 589 ng/mLFEU (0-500) H 05/05/17 16:10 - Impressions Impressions Videofluoroscopic Swallow 05/06/17 08:44 IMPRESSION: Penetration and aspiration on the thin liquid and nectar consistencies of barium and penetration without aspiration on the honey consistency of barium. Please see separate speech pathology report for full discussion of findings and recommendations. D/ / Kal Martinez MD / Kal Martinez MD Interpreting Provider: Kal Martinez MD Abdomen/Pelvis CT 05/06/17 15:00
[2017-05-07 15:15] LABS: ABG Base Excess 3 mEq/L (-2 to 3); ABG HCO3 30 mEq/L (21-27); ABG Oxygen Saturation 95 % (95-98); ABG PCO2 57 mmHg (35-45); ABG PH 7.33 pH Units (7.32-7.45); ABG PO2 82 mmHg (85-104); ABG TCO2 31 mEq/L (20-26)
--- NOTE | 2017-05-07 15:43 | Pulmonology Consult Note ---
<Vernon Castillo M - Last Filed: 05/07/17 16:57> Date of Encounter: 05/07/17 Medications and Allergies Albuterol Neb [Proventil Neb] 2.5 mg IH TID 02/13/16 [History] Baclofen [Lioresal] 10 mg PO BID 02/13/16 [History] Ranitidine HCl [Heartburn Relief] 150 mg PO DAILY 02/13/16 [History] Simvastatin [Zocor] 20 mg PO DAILY 02/13/16 [History] Polyethylene Glycol 3350 [MiraLAX] 17 gm PO DAILY PRN 03/12/16 [History] Acetaminophen [Tylenol] 650 mg PO Q6HR PRN 06/15/16 [History] Desmopressin Acetate [Ddavp] 0.4 mg PO TID 30 Days tablet 06/21/16 [Rx] Nutritional Supplement [Ensure] 113 gm PO TIDWM 30 Days container 06/21/16 [Rx] 3 Allergy/AdvReac Type Severity Reaction Status Date / Time No Known Allergies Allergy Verified 05/05/17 16:09 All Systems: A 10-system review of systems was performed and is negative for pertinent findings except as documented above in the HPI. Physical Examination Vital Signs: Vital Signs, Last 4 Hours Pulse Resp BP Pulse Ox 05/07/17 16:48 20 96 05/07/17 15:00 100 22 133/83 96 Results - Laboratory Findings CBC and BMP: 05/07/17 03:42 05/07/17 03:42 ABG ABG pH 7.33 pH Units (7.32-7.45) 05/07/17 15:10 ABG pCO2 57 mmHg (35-45) H 05/07/17 15:10 ABG pO2 82 mmHg (85-104) L 05/07/17 15:10 ABG O2 Saturation 95 % (95-98) 05/07/17 15:10 PT/INR, D-dimer PT 12.6 Seconds (9.4-12.1) H 05/07/17 03:42 D-Dimer 589 ng/mLFEU (0-500) H 05/05/17 16:10 Abnormal lab findings: Abnormal lab results RBC 3.81 M/mcL (3.82-4.97) L 05/07/17 03:42 Hgb 9.9 g/dL (11.5-15.4) L 05/07/17 03:42 Hct 32.2 % (35.3-44.9) L 05/07/17 03:42 MCH 26.0 pg (28.0-33.3) L 05/07/17 03:42 MCHC 30.7 g/dL (31.6-35.5) L 05/07/17 03:42 RDW 17.1 % (11.5-14.5) H 05/07/17 03:42 Lymphocytes # 0.5 K/mcL (0.6-4.6) L 05/07/17 03:42 PT 12.6 Seconds (9.4-12.1) H 05/07/17 03:42 D-Dimer 589 ng/mLFEU (0-500) H 05/05/17 16:10 ABG pCO2 57 mmHg (35-45) H 05/07/17 15:10 ABG pO2 82 mmHg (85-104) L 05/07/17 15:10 ABG HCO3 30 mEq/L (21-27) H 05/07/17 15:10 ABG Total CO2 31 mEq/L (20-26) H 05/07/17 15:10 Sodium 148 mEq/L (136-145) H 05/07/17 03:42 Chloride 112 mEq/L (98-109) H 05/07/17 03:42 Glucose 126 mg/dL (70-99) H 05/07/17 03:42 POC Glucose 125 (58-89) H 05/07/17 05:08 Calculated Osmolality 307 (280-300) H 05/07/17 03:42 Albumin 3.3 g/dL (3.5-5.0) L 05/07/17 03:42 Globulin 3.8 g/dL (2.4-3.5) H 05/07/17 03:42 Albumin/Globulin Ratio 0.9 (1.1-2.2) L 05/07/17 03:42 - Clinical Findings Intake & Output: Intake & Output 05/07/17 05/07/17 05/07/17 07:59 15:59 23:59 Intake Total 0 / 0 360 / 360 Balance 0 / 0 360 / 360 Weight 33.3 kg Consult Discharge Plan - Plan Referrals: Chandan Serrano MD [Primary Care Provider] - 05/15/17 2:15 pm - Attending Attestation I examined this patient and my medical decision-making was reviewed with the Resident Physician. I agree with the documented findings, disposition and treatment plan as described except to the extent set forth below. Patient seen and examined. Labs, radiology, chart personally reviewed. Agree with resident's history and physical, assessment, plan with following comments: COMMUNITY OUTREACH MANAGER: Patient does not follows commands, she seems to be anxious, recently she has received Ativan and according to the nurse and the primary team she is more relaxed Pulmonary: Acceptable oxygenation and ventilation. Discussed with the family at the bedside as well as the primary team and the nurses available, unfortunately very complicated and sad situation have respiratory distress could be multifactorial and suspect some aspiration and I personally reviewed her chest x-ray and on auscultation she has some bronchospasm. She is being managed appropriately in the floor and she will not tolerate noninvasive ventilation I have told the family she would need invasive mechanical ventilation if she becomes more in distress and she understand that. We will follow-up and please do not hesitate should you have any questions and thank you very much for the consultation. <Dotty Boudreaux - Last Filed: 05/07/17 17:56> Date of Encounter: 05/07/17 Time of Encounter: 15:41 Assessment and Plan (1) Acute respiratory failure with hypoxia Current Visit: Yes Status: Acute Etiology unclear. Multiple factors may be at play, including aspiration, bronchospasm, anxiety, and pulmonary embolism. To cover for the likelihood of aspiration, levaquin, zosyn, and vancomycin will be started. Scheduled duonebs and PRN proventil can be used to ameliorate any underlying bronchospastic component. Relief of bronchospasm may also help to decrease her anxiety. Additionally, 0.5mg IVP ativan q2h PRN can be used to help reduce the patient's anxiety. Patient has known PMH of pulmonary embolism and CTA this admission reveals bilateral pulmonary emboli. Currently, she is anticoagulated with lovenox and saturating 100% on 2L NC, suggesting PE is less likely. Discussed with family that if patient's respiratory distress were increase, it's unlikely she would tolerate non-invasive ventilation and would need to be placed on mechanical ventilation. History of Present Illness Consult date: 05/07/17 Requesting physician: Miles Israel Reason for consult: other (resipratory distress) Chief complaint: increased dyspnea and wheezing History of present illness: Ms. Cousins is a 42 year old female with h/o cerebral palsy, DVT, recurrent PE's , and factor V leiden who comes to the hospital for worsening shortness of breath and wheezing x5 days. Patient's home oxygen is typically used on PRN basis, but over last several days has been requiring more oxygen--up to 4L NC all day. Home breathing treatments weren't effective. In the ED, CTA revealed multiple pulmonary emboli. Currently, receives Lovenox twice daily. Pulmonology has been consulted for critical care management of respiratory distress in this patient. Past Med Surg Social Fam HX - Past Medical History Medical history: diabetes, GERD, other Psychiatric history: no psych history - Social History Smoking Status: Never smoker Smokeless Tobacco Status: No Alcohol use: none Drug use: none - Family History Mother Adopted: No Living Status: Still Living Hx Family Cardiac Disorders: Yes (HTN) Hx Family Endocrine Disorder: Yes (T2DM) ROS unobtainable: due to mental status All Systems: A 10-system review of systems was performed and is negative for pertinent findings except as documented above in the HPI. Physical Examination Vital Signs: Vital Signs, Last 4 Hours Pulse Resp BP Pulse Ox 05/07/17 15:00 100 22 133/83 96 05/07/17 11:46 16 96 General appearance: alert, appears uncomfortable Eyes: nonicteric Effort: mildly labored Inspection: hyperextended Auscultation: bilateral: rhonchi Cardiovascular: other (borderline tachycardia, regular rhythm) Gastrointestinal: non-distended Extremities: no cyanosis unable to assess due to mental status Results - Laboratory Findings CBC and BMP: 05/07/17 03:42 05/07/17 03:42 ABG ABG pH 7.33 pH Units (7.32-7.45) 05/07/17 15:10 ABG pCO2 57 mmHg (35-45) H 05/07/17 15:10 ABG pO2 82 mmHg (85-104) L 05/07/17 15:10 ABG O2 Saturation 95 % (95-98) 05/07/17 15:10 PT/INR, D-dimer PT 12.6 Seconds (9.4-12.1) H 05/07/17 03:42 D-Dimer 589 ng/mLFEU (0-500) H 05/05/17 16:10 Abnormal lab findings: Abnormal lab results RBC 3.81 M/mcL (3.82-4.97) L 05/07/17 03:42 Hgb 9.9 g/dL (11.5-15.4) L 05/07/17 03:42 Hct 32.2 % (35.3-44.9) L 05/07/17 03:42 MCH 26.0 pg (28.0-33.3) L 05/07/17 03:42 MCHC 30.7 g/dL (31.6-35.5) L 05/07/17 03:42 RDW 17.1 % (11.5-14.5) H 05/07/17 03:42 Lymphocytes # 0.5 K/mcL (0.6-4.6) L 05/07/17 03:42 PT 12.6 Seconds (9.4-12.1) H 05/07/17 03:42 D-Dimer 589 ng/mLFEU (0-500) H 05/05/17 16:10 ABG pCO2 57 mmHg (35-45) H 05/07/17 15:10 ABG pO2 82 mmHg (85-104) L 05/07/17 15:10 ABG HCO3 30 mEq/L (21-27) H 05/07/17 15:10 ABG Total CO2 31 mEq/L (20-26) H 05/07/17 15:10 Sodium 148 mEq/L (136-145) H 05/07/17 03:42 Chloride 112 mEq/L (98-109) H 05/07/17 03:42 Glucose 126 mg/dL (70-99) H 05/07/17 03:42 POC Glucose 125 (58-89) H 05/07/17 05:08 Calculated Osmolality 307 (280-300) H 05/07/17 03:42 Albumin 3.3 g/dL (3.5-5.0) L 05/07/17 03:42 Globulin 3.8 g/dL (2.4-3.5) H 05/07/17 03:42 Albumin/Globulin Ratio 0.9 (1.1-2.2) L 05/07/17 03:42 - Clinical Findings Intake & Output: Intake & Output 05/06/17 05/07/17 05/07/17 23:59 07:59 15:59 Intake Total 1060 / 1060 0 / 0 360 / 360 Balance 1060 / 1060 0 / 0 360 / 360 Weight 33.3 kg
[2017-05-07] MEDS ORDERED: Levofloxacin 750 MG/150 ML 750 MG/150 ML BAG IVPB SCH (16:00)
[2017-05-07] MEDS ORDERED: *HR* Warfarin 2.5 MG TABLET PO ONE (18:00)
[2017-05-07] MEDS ORDERED: Vancomycin 1,000 MG in D5% in Water 250 ML IVPB SCH (18:00)
[2017-05-07] MEDS: Piperacillin/Tazobactam 3.375 GM in D5% in Water (Mini-Bag+) 100 ML IVPB SCH (18:33)
[2017-05-07] MEDS: Vancomycin 500 MG in D5% in Water (Mini-Bag+) 100 ML IVPB SCH (18:34)
[2017-05-07] MEDS: *HR* LORazepam 2 MG/ML VIAL IVP PRN (21:14)
[2017-05-08] MEDS: MethylPREDNISolone 40 MG/ML VIAL IVP SCH ×2 (01:04→08:13)
[2017-05-08] MEDS: 0.9 % Sodium Chloride 1,000 ML IVC SCH (01:04)
[2017-05-08] MEDS: *HR* LORazepam 2 MG/ML VIAL IVP PRN (01:09)
[2017-05-08] MEDS: Piperacillin/Tazobactam 3.375 GM in D5% in Water (Mini-Bag+) 100 ML IVPB SCH ×3 (02:33→22:33)
[2017-05-08] MEDS: Ipratropium/Albuterol Neb 3 ML IH SCH ×6 (04:11→22:40)
[2017-05-08 05:15] LABS: Hematocrit 32.4 % (35.3-44.9); Hemoglobin 9.8 g/dL (11.5-15.4); Immature Granulocytes % 0.4 % (0-4); Lymphocytes # 0.4 K/mcL (0.6-4.6); Lymphocytes % 5.2 %; Mean Corpuscular HGB Conc 30.2 g/dL (31.6-35.5); Mean Corpuscular Hemoglobin 25.9 pg (28.0-33.3); Mean Corpuscular Volume 85.5 fL (83.0-100.0); Mean Platelet Volume 11.4 fL (9.4-12.4); Monocytes # 0.3 K/mcL (0.0-1.3); Monocytes % 4.4 %; Neutrophils # 6.5 K/mcL (1.6-8.9); Platelet Count 291 K/mcL (140-400); Red Blood Count 3.79 M/mcL (3.82-4.97); Red Cell Distribution Width 17.3 % (11.5-14.5)
[2017-05-08 05:16] LABS: INR 1.4; Prothrombin Time 15.2 Seconds (9.4-12.1)
[2017-05-08 05:30] LABS: BUN/Creatinine Ratio 15 (6-26); Blood Urea Nitrogen 12 mg/dL (7-20); Carbon Dioxide 29 mEq/L (19-29); Chloride 114 mEq/L (98-109); Glucose 118 mg/dL (70-99); Osmolality,Calculated 313 (280-300); Potassium 3.9 mEq/L (3.5-4.5); Sodium 151 mEq/L (136-145); eGFR For African Americans > 60 (> 60); eGFR For Non-African Americans > 60 (> 60)
[2017-05-08] MEDS: *HR* Enoxaparin 30 MG/0.3 ML SYRINGE SQ SCH ×2 (06:14→17:36)
[2017-05-08] MEDS ORDERED: Aminoglycoside Consult 1 EACH MC ONE (07:54)
--- NOTE | 2017-05-08 10:54 | Internal Med Progress Note ---
<Edmund Cabrera Gloria - Last Filed: 05/08/17 10:51> Date of Encounter: 05/08/17 Time of Encounter: 10:51 - Assessment and plan (1) Bilateral pulmonary embolism Current Visit: Yes Status: Acute Assessment and plan: Breathing improving today. Bilateral rhonchi and wheezes present. CTA on 05/05: bilateral PE. Plan: Hematology consult - Hx of factor V leiden, recurrent PE's. Previously on xarelto, stopped d/t anemia from menorrhagia Speech consult for swallow evaluation and risk for aspiration - repeat swallow study today - currently NPO Continue duonebs and IVFs Discontinue solumedrol as this may be making her agitation worse Lovenox BID - bridging to coumadin (2) Aspiration pneumonia Current Visit: Yes Status: Acute Assessment and plan: Breathing improving. CXR concerning for hospital acquired aspiration pneumonia. Plan: Start antibiotics - vancomycin, zosyn, and levaquin Breathing treatments Switch Morphins PRN to decrease pain, agitation, and work of breathing Once swallow study is completed - consider adding seroquel to help with agitation and sleep Qualifiers: Aspiration pneumonia type: unspecified Laterality: right Lung location: lower lobe of lung Qualified Code(s): J69.0 - Pneumonitis due to inhalation of food and vomit (3) Hypoxia Current Visit: Yes Status: Acute Assessment and plan: Plan as above (4) Factor V Leiden Current Visit: No Status: Acute Assessment and plan: Hx of factor V leiden with recurrent PE's Xarelto stopped d/t anemia from menorrhagia Plan: Consult hematology - appreciate recommendations Continue Lovenox and bridge to Coumadin Check PT/INR Discussed menorrhagia with Dr. 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 No increase in urinary frequency (7) DVT prophylaxis Current Visit: Yes Status: Acute Assessment and plan: Lovenox BID No lower extremity edema - Subjective Interval history: Pt seen and examined. History from mother. Pt is breathing better today. Awake all night for the 4th straight time. Ativan was unsuccessful at helping her calm down. On home oxygen PRN, previously on continuous O2. She does cough after her breathing treatments. Denies other complaints/concerns, denies chest pain, abdominal pain, vomiting, diarrhea, or lower extremity edema. - Constitutional Vitals: Temp Pulse Resp BP Pulse Ox 98.9 F 107 18 120/88 96 05/08/17 04:16 05/08/17 07:00 05/08/17 07:00 05/08/17 07:00 05/08/17 07:00 General appearance: Present: cooperative, A&O X 1, mild distress - Head Head exam: Present: atraumatic, normocephalic - Eye Eye exam: Present: conjuntiva pink, sclera anicteric - ENT ENT exam: Present: mucous membranes moist - Neck Neck exam general surgery: Present: supple, trachea midline - Respiratory Respiratory exam: Present: rhonchi (bilaterally). Absent: accessory muscle use , rales, wheezes - Cardiovascular Cardiovascular exam: Present: RRR, +S1, +S2. Absent: diastolic murmur, systolic murmur - GI/Abdominal GI/Abdominal exam: Present: normal bowel sounds, soft, no peritoneal signs. Absent: distended, tenderness - Extremities Exam Extremities exam: Present: warm, radial pulses palpable and symmetrical. Absent : calf tenderness, cyanotic, pedal edema - Neurological Exam Neurological exam: Present: no focal deficits. Absent: facial droop - Skin Skin exam: Present: dry, intact Internal Medicine: Result - Labs CBC & Chem 7: 05/08/17 05:07 05/08/17 05:07 Labs: Short CBC 05/08/17 Range/Units 05:07 WBC 7.3 (4.3-11.1) K/mcL Hgb 9.8 L (11.5-15.4) g/dL Hct 32.4 L (35.3-44.9) % Plt Count 291 (140-400) K/mcL Neutrophils # 6.5 (1.6-8.9) K/mcL BMP 05/08/17 05:07 Sodium 151 H Potassium 3.9 Chloride 114 H Carbon Dioxide 29 BUN 12 Creatinine 0.79 Glucose 118 H Calcium 9.0 - ABG Interpretation ABG results: ABG ABG pH 7.33 pH Units (7.32-7.45) 05/07/17 15:10 ABG pCO2 57 mmHg (35-45) H 05/07/17 15:10 ABG pO2 82 mmHg (85-104) L 05/07/17 15:10 ABG O2 Saturation 95 % (95-98) 05/07/17 15:10 PT/INR, D-dimer PT 15.2 Seconds (9.4-12.1) H 05/08/17 05:07 D-Dimer 589 ng/mLFEU (0-500) H 05/05/17 16:10 - Impressions Impressions Chest X-Ray 05/07/17 15:12 IMPRESSION: No acute process. D/ / Temo Montano MD / Temo Montano MD Interpreting Provider: Temo Montano MD Consult Discharge Plan - Plan Referrals: Chandan Serrano MD [Primary Care Provider] - 05/15/17 2:15 pm <Miles Israel P - Last Filed: 05/08/17 18:36> Date of Encounter: 05/08/17 - Constitutional Vitals: Temp Pulse Resp BP Pulse Ox 98.9 F 83 22 127/84 96 05/08/17 04:16 05/08/17 15:00 05/08/17 16:46 05/08/17 15:00 05/08/17 16:46 Internal Medicine: Result - Labs CBC & Chem 7: 05/08/17 05:07 05/08/17 05:07 Labs: Short CBC 05/08/17 Range/Units 05:07 WBC 7.3 (4.3-11.1) K/mcL Hgb 9.8 L (11.5-15.4) g/dL Hct 32.4 L (35.3-44.9) % Plt Count 291 (140-400) K/mcL Neutrophils # 6.5 (1.6-8.9) K/mcL BMP 05/08/17 05:07 Sodium 151 H Potassium 3.9 Chloride 114 H Carbon Dioxide 29 BUN 12 Creatinine 0.79 Glucose 118 H Calcium 9.0 - ABG Interpretation ABG results: ABG ABG pH 7.33 pH Units (7.32-7.45) 05/07/17 15:10 ABG pCO2 57 mmHg (35-45) H 05/07/17 15:10 ABG pO2 82 mmHg (85-104) L 05/07/17 15:10 ABG O2 Saturation 95 % (95-98) 05/07/17 15:10 PT/INR, D-dimer PT 15.2 Seconds (9.4-12.1) H 05/08/17 05:07 D-Dimer 589 ng/mLFEU (0-500) H 05/05/17 16:10 - Impressions Impressions Videofluoroscopic Swallow 05/08/17 08:44 IMPRESSION: Aspiration was identified with both administered consistencies. Please see separate speech pathology report for full discussion of findings and recommendations. D/ / Shakeel Sanders MD / Shakeel Sanders MD Interpreting Provider: Shakeel Sanders MD - Attending Attestation I examined this patient and my medical decision-making was reviewed with the Resident Physician. I agree with the documented findings, disposition and treatment plan as described except to the extent set forth below. 42/female Advanced cerebral palsy. Possible aspiration pneumonia. Repeat modified barium swallow was suggestive of aspiration. Plan: Nothing by mouth IV fluids. Discussion with family tomorrow regarding possible options.
[2017-05-08] MEDS: *HR* Morphine 2 MG/ML SYRINGE IVP PRN ×3 (11:10→23:19)
--- NOTE | 2017-05-08 11:39 | Pulmonology Progress Note ---
<Dotty Boudreaux - Last Filed: 05/08/17 11:52> Date of Encounter: 05/08/17 Time of Encounter: 09:35 Assessment and Plan (1) Acute respiratory failure with hypoxia Current Visit: Yes Status: Acute - Subjective Principal diagnosis: acute respiratory failure with hypoxia Interval history: Pt seen and examined at bedside this morning, her parents are present in the room. Per patient's mother, the patient got very little sleep last night and had a "bad reaction" to the Ativan, pt's mother thinks she may have been hallucinating. Objective PUL Vital signs: Last Vital Signs Temp 98.9 F 05/08/17 04:16 Pulse 107 05/08/17 07:00 Resp 18 05/08/17 07:00 BP 120/88 05/08/17 07:00 Pulse Ox 96 05/08/17 07:00 General appearance: other ( in less distress than yesterday) Eyes: nonicteric ENT: oropharynx moist Effort: mildly labored (improved since yesterday), other Auscultation: bilateral: wheezes (no wheezing appreciated), rhonchi Cardiovascular: regular rate and rhythm Gastrointestinal: absent bowel sounds, soft, non-tender, non-distended Extremities: no cyanosis, no edema, pulses normal unable to assess due to mental status Results - Laboratory Findings CBC and BMP: 05/08/17 05:07 05/08/17 05:07 ABG ABG pH 7.33 pH Units (7.32-7.45) 05/07/17 15:10 ABG pCO2 57 mmHg (35-45) H 05/07/17 15:10 ABG pO2 82 mmHg (85-104) L 05/07/17 15:10 ABG O2 Saturation 95 % (95-98) 05/07/17 15:10 PT/INR, D-dimer PT 15.2 Seconds (9.4-12.1) H 05/08/17 05:07 D-Dimer 589 ng/mLFEU (0-500) H 05/05/17 16:10 Abnormal lab findings: Abnormal lab results RBC 3.79 M/mcL (3.82-4.97) L 05/08/17 05:07 Hgb 9.8 g/dL (11.5-15.4) L 05/08/17 05:07 Hct 32.4 % (35.3-44.9) L 05/08/17 05:07 MCH 25.9 pg (28.0-33.3) L 05/08/17 05:07 MCHC 30.2 g/dL (31.6-35.5) L 05/08/17 05:07 RDW 17.3 % (11.5-14.5) H 05/08/17 05:07 Lymphocytes # 0.4 K/mcL (0.6-4.6) L 05/08/17 05:07 PT 15.2 Seconds (9.4-12.1) H 05/08/17 05:07 D-Dimer 589 ng/mLFEU (0-500) H 05/05/17 16:10 ABG pCO2 57 mmHg (35-45) H 05/07/17 15:10 ABG pO2 82 mmHg (85-104) L 05/07/17 15:10 ABG HCO3 30 mEq/L (21-27) H 05/07/17 15:10 ABG Total CO2 31 mEq/L (20-26) H 05/07/17 15:10 Sodium 151 mEq/L (136-145) H 05/08/17 05:07 Chloride 114 mEq/L (98-109) H 05/08/17 05:07 Glucose 118 mg/dL (70-99) H 05/08/17 05:07 POC Glucose 169 (58-89) H 05/07/17 17:36 Calculated Osmolality 313 (280-300) H 05/08/17 05:07 Albumin 3.3 g/dL (3.5-5.0) L 05/07/17 03:42 Globulin 3.8 g/dL (2.4-3.5) H 05/07/17 03:42 Albumin/Globulin Ratio 0.9 (1.1-2.2) L 05/07/17 03:42 - Clinical Findings Intake & Output: Intake & Output 05/07/17 05/08/17 05/08/17 23:59 07:59 15:59 Intake Total 1200 / 1200 150 / 150 Balance 1200 / 1200 150 / 150 Consult Discharge Plan - Plan Referrals: Chandan Serrano MD [Primary Care Provider] - 05/15/17 2:15 pm <Vernon Castillo - Last Filed: 05/08/17 13:50> Date of Encounter: 05/08/17 Objective PUL Vital signs: Last Vital Signs Temp 98.9 F 05/08/17 04:16 Pulse 107 05/08/17 07:00 Resp 24 05/08/17 11:14 BP 120/88 05/08/17 07:00 Pulse Ox 96 05/08/17 11:14 Results - Laboratory Findings CBC and BMP: 05/08/17 05:07 05/08/17 05:07 ABG ABG pH 7.33 pH Units (7.32-7.45) 05/07/17 15:10 ABG pCO2 57 mmHg (35-45) H 05/07/17 15:10 ABG pO2 82 mmHg (85-104) L 05/07/17 15:10 ABG O2 Saturation 95 % (95-98) 05/07/17 15:10 PT/INR, D-dimer PT 15.2 Seconds (9.4-12.1) H 05/08/17 05:07 D-Dimer 589 ng/mLFEU (0-500) H 05/05/17 16:10 Abnormal lab findings: Abnormal lab results RBC 3.79 M/mcL (3.82-4.97) L 05/08/17 05:07 Hgb 9.8 g/dL (11.5-15.4) L 05/08/17 05:07 Hct 32.4 % (35.3-44.9) L 05/08/17 05:07 MCH 25.9 pg (28.0-33.3) L 05/08/17 05:07 MCHC 30.2 g/dL (31.6-35.5) L 05/08/17 05:07 RDW 17.3 % (11.5-14.5) H 05/08/17 05:07 Lymphocytes # 0.4 K/mcL (0.6-4.6) L 05/08/17 05:07 PT 15.2 Seconds (9.4-12.1) H 05/08/17 05:07 D-Dimer 589 ng/mLFEU (0-500) H 05/05/17 16:10 ABG pCO2 57 mmHg (35-45) H 05/07/17 15:10 ABG pO2 82 mmHg (85-104) L 05/07/17 15:10 ABG HCO3 30 mEq/L (21-27) H 05/07/17 15:10 ABG Total CO2 31 mEq/L (20-26) H 05/07/17 15:10 Sodium 151 mEq/L (136-145) H 05/08/17 05:07 Chloride 114 mEq/L (98-109) H 05/08/17 05:07 Glucose 118 mg/dL (70-99) H 05/08/17 05:07 POC Glucose 108 (58-89) H 05/08/17 11:45 Calculated Osmolality 313 (280-300) H 05/08/17 05:07 Albumin 3.3 g/dL (3.5-5.0) L 05/07/17 03:42 Globulin 3.8 g/dL (2.4-3.5) H 05/07/17 03:42 Albumin/Globulin Ratio 0.9 (1.1-2.2) L 05/07/17 03:42 - Clinical Findings Intake & Output: Intake & Output 05/07/17 05/08/17 05/08/17 23:59 07:59 15:59 Intake Total 1200 / 1200 150 / 150 Balance 1200 / 1200 150 / 150 - Attending Attestation I examined this patient and my medical decision-making was reviewed with the Resident Physician. I agree with the documented findings, disposition and treatment plan as described except to the extent set forth below. Patient seen and examined. Labs, radiology, chart personally reviewed. 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 Patient still have agitation which I feel it worsened with agitation. Pulmonary: Patient remained keeping Oxygen saturation within acceptable range. Would recommend to stop systemic steroid since that could be worsening her mental status. Continue pulmonary hygiene. I discussed with the family again that to continue supportive care and need for since then will need invasive mechanical ventilation.
[2017-05-08] MEDS ORDERED: 0.9 % Sodium Chloride 1,000 ML IVC SCH (14:30)
[2017-05-08] MEDS: Baclofen 10 MG TABLET PO SCH ×2 (14:43→22:21)
[2017-05-08] MEDS: Famotidine 20 MG TABLET PO SCH (14:43)
[2017-05-08] MEDS: Vancomycin 500 MG in D5% in Water (Mini-Bag+) 100 ML IVPB SCH (17:35)
[2017-05-08] MEDS ORDERED: *HR* Warfarin 2.5 MG TABLET PO ONE (18:00)
[2017-05-08] MEDS ORDERED: 0.9 % Sodium Chloride 500 ML IVC ONE (23:13)
[2017-05-09] MEDS: Albuterol 2.5 MG/3 ML NEBULIZER IH PRN ×2 (00:26→11:44)
[2017-05-09] MEDS ORDERED: D5% in Water 1,000 ML IVC PRN (00:37)
[2017-05-09] MEDS ORDERED: Dextrose Gel 15 GM PO PRN ×2 (00:37)
[2017-05-09] MEDS: Ringers Solution, Lactated 1,000 ML IVC SCH ×2 (00:45→14:50)
[2017-05-09] MEDS: *HR* Dextrose 50 % in Water (Syg) 50 ML SYRINGE IVP PRN (00:54)
[2017-05-09] MEDS: Ipratropium/Albuterol Neb 3 ML IH SCH (04:43)
[2017-05-09 05:15] LABS: Hematocrit 33.3 % (35.3-44.9); Hemoglobin 9.9 g/dL (11.5-15.4); Mean Corpuscular HGB Conc 29.7 g/dL (31.6-35.5); Mean Corpuscular Hemoglobin 25.6 pg (28.0-33.3); Mean Platelet Volume 10.8 fL (9.4-12.4); Platelet Count 276 K/mcL (140-400); Red Blood Count 3.87 M/mcL (3.82-4.97); Red Cell Distribution Width 17.3 % (11.5-14.5)
[2017-05-09 05:18] LABS: INR 1.3; Prothrombin Time 13.9 Seconds (9.4-12.1)
[2017-05-09 05:30] LABS: BUN/Creatinine Ratio 13 (6-26); Blood Urea Nitrogen 11 mg/dL (7-20); Calcium 8.8 mg/dL (8.6-10.8); Carbon Dioxide 28 mEq/L (19-29); Chloride 115 mEq/L (98-109); Glucose 74 mg/dL (70-99); Osmolality,Calculated 312 (280-300); Potassium 3.4 mEq/L (3.5-4.5); Sodium 152 mEq/L (136-145); eGFR For African Americans > 60 (> 60); eGFR For Non-African Americans > 60 (> 60)
[2017-05-09] MEDS ORDERED: Furosemide 40 MG/4 ML VIAL ONE (05:39)
[2017-05-09] MEDS ORDERED: Furosemide 40 MG/4 ML VIAL IVP ONE (05:42)
[2017-05-09] MEDS: Levalbuterol Neb 0.63 MG/3 ML IH SCH ×3 (05:45→21:21)
[2017-05-09 05:48] LABS: ABG Base Excess 2 mEq/L (-2 to 3); ABG HCO3 31 mEq/L (21-27); ABG Oxygen Saturation 89 % (95-98); ABG PCO2 74 mmHg (35-45); ABG PH 7.23 pH Units (7.32-7.45); ABG PO2 70 mmHg (85-104); ABG TCO2 33 mEq/L (20-26)
[2017-05-09] MEDS ORDERED: *HR* Morphine 2 MG/ML SYRINGE IVP ONE (05:48)
[2017-05-09] MEDS ORDERED: MethylPREDNISolone 40 MG/ML VIAL ONE (05:51)
[2017-05-09] MEDS: MethylPREDNISolone 40 MG/ML VIAL IVP SCH ×2 (05:52→07:44)
--- NOTE | 2017-05-09 06:01 | Event Note ---
Date of Encounter: 05/09/17 Time of Encounter: 05:37 RAPID RESPONSE NOTE I was called to see the above patient who has a history of cerebral palsy with chronic respiratory failure on 4L/min of home oxygen who has been aspirating with a plan for PEG tube. She was a rapid response this morning for tachycardia of 151bpm and hypoxia with pulse ox reading of 77% on 4-6L/min of oxygen via nasal cannula. Limited exam showed a female sitting up in bed, dyspneic and tachycardic, in respiratory distress with intercostal and subcostal recessions, limited AE, wheezing with rhonchorous lung sounds but no crackles, no pedal edema. Plan -resume solu-medrol 40mg Q8H -morphine 1mg IV stat -BiPAP trial and for intubation if she fails NIMV -switch from albuterol to xopenex -magnesium sulfate IV -transfer to ICU for closer monitoring Dw family at bedside, pt's nurse and charge nurse on unit
[2017-05-09 07:01] LABS: Hemoglobin A1C 5.2 %
[2017-05-09] MEDS: *HR* Enoxaparin 30 MG/0.3 ML SYRINGE SQ SCH ×2 (07:44→18:11)
[2017-05-09] MEDS: Piperacillin/Tazobactam 3.375 GM in D5% in Water (Mini-Bag+) 100 ML IVPB SCH (07:45)
--- NOTE | 2017-05-09 07:59 | Pulmonology Progress Note ---
<Dotty Boudreaux - Last Filed: 05/09/17 11:51> Date of Encounter: 05/09/17 Time of Encounter: 08:00 Assessment and Plan (1) Acute respiratory failure with hypoxia Current Visit: Yes Status: Acute -transferred to ICU after rapid response called this morning for tachycardia of 151 bpm & hypoxia, pulse ox of 77% on 4-6L/min of oxygen via NC. Patient reported to have intercostal and subcostal retractions with wheezing and rhonchorous breath sounds. -CXR negative for evidence of acute cardiopulmonary process -patient currently on BiPAP and tolerating well; oxygen saturation 97% with FiO2 at 60% -breathing treatments now include Xopenex and Symbicort in addition to her Proventil. 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 Per patient's father, she got 4 to 5 hours of sleep last night, which he was pleased with. Also per her father, she is calmer and breathing more comfortably. Objective PUL Vital signs: Last Vital Signs Temp 98.5 F 05/09/17 07:00 Pulse 95 05/09/17 07:02 Resp 26 05/09/17 07:43 BP 141/92 05/09/17 07:43 Pulse Ox 99 05/09/17 07:43 General appearance: no acute distress, alert ENT: oropharynx dry Effort: normal Auscultation: bilateral: wheezes, rhonchi Cardiovascular: other (tachycardia, regular rhythm) Gastrointestinal: absent bowel sounds Integumentary: normal Extremities: no cyanosis, no edema, pulses normal unable to assess due to mental status Results - Laboratory Findings CBC and BMP: 05/09/17 04:45 05/09/17 04:45 ABG ABG pH 7.23 pH Units (7.32-7.45) L 05/09/17 05:44 ABG pCO2 74 mmHg (35-45) H* 05/09/17 05:44 ABG pO2 70 mmHg (85-104) L 05/09/17 05:44 ABG O2 Saturation 89 % (95-98) L 05/09/17 05:44 PT/INR, D-dimer PT 13.9 Seconds (9.4-12.1) H 05/09/17 04:45 D-Dimer 589 ng/mLFEU (0-500) H 05/05/17 16:10 Abnormal lab findings: Abnormal lab results Hgb 9.9 g/dL (11.5-15.4) L 05/09/17 04:45 Hct 33.3 % (35.3-44.9) L 05/09/17 04:45 MCH 25.6 pg (28.0-33.3) L 05/09/17 04:45 MCHC 29.7 g/dL (31.6-35.5) L 05/09/17 04:45 RDW 17.3 % (11.5-14.5) H 05/09/17 04:45 Lymphocytes # 0.4 K/mcL (0.6-4.6) L 05/08/17 05:07 PT 13.9 Seconds (9.4-12.1) H 05/09/17 04:45 D-Dimer 589 ng/mLFEU (0-500) H 05/05/17 16:10 ABG pH 7.23 pH Units (7.32-7.45) L 05/09/17 05:44 ABG pCO2 74 mmHg (35-45) H* 05/09/17 05:44 ABG pO2 70 mmHg (85-104) L 05/09/17 05:44 ABG HCO3 31 mEq/L (21-27) H 05/09/17 05:44 ABG Total CO2 33 mEq/L (20-26) H 05/09/17 05:44 ABG O2 Saturation 89 % (95-98) L 05/09/17 05:44 Sodium 152 mEq/L (136-145) H 05/09/17 04:45 Potassium 3.4 mEq/L (3.5-4.5) L 05/09/17 04:45 Chloride 115 mEq/L (98-109) H 05/09/17 04:45 POC Glucose 92 (58-89) H 05/09/17 02:23 Calculated Osmolality 312 (280-300) H 05/09/17 04:45 Albumin 3.3 g/dL (3.5-5.0) L 05/07/17 03:42 Globulin 3.8 g/dL (2.4-3.5) H 05/07/17 03:42 Albumin/Globulin Ratio 0.9 (1.1-2.2) L 05/07/17 03:42 - Clinical Findings Intake & Output: Intake & Output 05/08/17 05/08/17 05/09/17 15:59 23:59 07:59 Intake Total 100 / 100 100 / 100 Balance 100 / 100 100 / 100 Weight 32.2 kg Consult Discharge Plan - Plan Referrals: Chandan Serarno MD [Primary Care Provider] - 05/15/17 2:15 pm <Vernon Castillo - Last Filed: 05/09/17 16:15> Date of Encounter: 05/09/17 Objective PUL Vital signs: Last Vital Signs Temp 98.5 F 05/09/17 07:56 Pulse 76 05/09/17 14:00 Resp 18 05/09/17 16:02 BP 81/48 05/09/17 14:00 Pulse Ox 96 05/09/17 16:02 Ventilator Settings Ventilator Settings: Ventilator Settings, Last 8 Hours Ventilator Mode A/C Ventilator Mode A/C Ventilator Mode A/C Ventilator Mode A/C Ventilator Mode A/C Ventilator Tidal Volume 300 Setting Ventilator Tidal Volume 300 Setting Ventilator Tidal Volume 300 Setting Ventilator Tidal Volume 300 Setting Ventilator Tidal Volume 300 Setting Ventilator Respiratory Rate 16 Setting Ventilator Respiratory Rate 15 Setting Ventilator Respiratory Rate 12 Setting Ventilator Respiratory Rate 14 Setting Ventilator Respiratory Rate 15 Setting Actual Respiratory Rate 19 Actual Respiratory Rate 15 Actual Respiratory Rate 15 Actual Respiratory Rate 15 Positive End Expiratory 5 Pressure Positive End Expiratory 5 Pressure Positive End Expiratory 5 Pressure Positive End Expiratory 5 Pressure Positive End Expiratory 5 Pressure Peak Inspiratory Airway 30 Pressure Peak Inspiratory Airway 23 Pressure Results - Laboratory Findings CBC and BMP: 05/09/17 04:45 05/09/17 12:52 ABG ABG pH 7.21 pH Units (7.32-7.45) L 05/09/17 13:44 ABG pCO2 83 mmHg (35-45) H* 05/09/17 13:44 ABG pO2 283 mmHg (85-104) H 05/09/17 13:44 ABG O2 Saturation 100 % (95-98) H 05/09/17 13:44 PT/INR, D-dimer PT 13.9 Seconds (9.4-12.1) H 05/09/17 04:45 D-Dimer 589 ng/mLFEU (0-500) H 05/05/17 16:10 Abnormal lab findings: Abnormal lab results Hgb 9.9 g/dL (11.5-15.4) L 05/09/17 04:45 Hct 33.3 % (35.3-44.9) L 05/09/17 04:45 MCH 25.6 pg (28.0-33.3) L 05/09/17 04:45 MCHC 29.7 g/dL (31.6-35.5) L 05/09/17 04:45 RDW 17.3 % (11.5-14.5) H 05/09/17 04:45 Lymphocytes # 0.4 K/mcL (0.6-4.6) L 05/08/17 05:07 PT 13.9 Seconds (9.4-12.1) H 05/09/17 04:45 D-Dimer 589 ng/mLFEU (0-500) H 05/05/17 16:10 ABG pH 7.21 pH Units (7.32-7.45) L 05/09/17 13:44 ABG pCO2 83 mmHg (35-45) H* 05/09/17 13:44 ABG pO2 283 mmHg (85-104) H 05/09/17 13:44 ABG HCO3 34 mEq/L (21-27) H 05/09/17 13:44 ABG Total CO2 36 mEq/L (20-26) H 05/09/17 13:44 ABG O2 Saturation 100 % (95-98) H 05/09/17 13:44 Sodium 154 mEq/L (136-145) H 05/09/17 12:52 Potassium 3.4 mEq/L (3.5-4.5) L 05/09/17 04:45 Chloride 115 mEq/L (98-109) H 05/09/17 04:45 POC Glucose 92 (58-89) H 05/09/17 02:23 Calculated Osmolality 312 (280-300) H 05/09/17 04:45 Albumin 3.3 g/dL (3.5-5.0) L 05/07/17 03:42 Globulin 3.8 g/dL (2.4-3.5) H 05/07/17 03:42 Albumin/Globulin Ratio 0.9 (1.1-2.2) L 05/07/17 03:42 Urine Blood Trace (Negative) H 05/09/17 09:07 - Clinical Findings Intake & Output: Intake & Output 05/09/17 05/09/17 05/09/17 07:59 15:59 23:59 Intake Total 100 / 100 1000 / 1000 Balance 100 / 100 1000 / 1000 Weight 32.2 kg 31 kg - Attending Attestation I examined this patient and my medical decision-making was reviewed with the Resident Physician. I agree with the documented findings, disposition and treatment plan as described except to the extent set forth below. Patient seen and examined. Labs, radiology, chart personally reviewed. 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 Discussed with the family at the bedside that her condition is worsening on the noninvasive ventilation and all of them agreed that patient needs to be on the invasive mechanical ventilation knowing that it will be and known what would happen interim HOW long she will be on the ventilator. Subsequently patient was intubated and significant amount of secretion was suctioned out. Cardiovascular: Patient is on treatment for pulmonary embolism GI: Nutrition per dietary and GI prophylaxis per routine Heme: DVT prophylaxis per routine ID: Continue antibiotics and plan to de-escalation Renal; urine out put and renal funtion reviewed. Patient with hypernatremia which I suspect from diabetes insipidus as well as hypovolemia which we will treat with DDAVP as well as fluid and free water after intubation. Endorcine: blood glucose is monitored Lines: all lines checked and no evidence of infections Skin: skin care to prevent pressure ulcers per nursing routine care I spent 35 min of Critical Care time with this patient. It involved decision making of high complexity to assess, manipulate, and support vital organ system failure and/or to prevent further life threatening deterioration of the patient' s condition. The time involved in the performance of separately reportable procedures was not counted toward critical care time.
[2017-05-09] MEDS: Famotidine 20 MG TABLET PO SCH (08:00)
[2017-05-09] MEDS: Baclofen 10 MG TABLET PO SCH ×2 (08:00→20:10)
[2017-05-09] MEDS ORDERED: *HR* Midazolam HCl 5 MG/5 ML VIAL IVP ONE (08:04)
[2017-05-09] MEDS ORDERED: *HR* Midazolam HCl 2 MG/2 ML VIAL IV ONE (08:04)
[2017-05-09] MEDS ORDERED: Lactulose 200 GM, Sodium Chloride IRRigation 700 ML RC ONE (08:55)
[2017-05-09] MEDS: *HR* Morphine 2 MG/ML SYRINGE IVP PRN (10:16)
--- NOTE | 2017-05-09 11:31 | Oncology Inp Progress Note ---
Date of Encounter: 05/09/17 Time of Encounter: 11:26 (1) Pulmonary embolism Current Visit: No Status: Acute Assessment and plan: - I do not think that her respiratory deterioration is the result of recurrent PE, in view that she is fully anticoagulated. INR remains subtherapeutic. Continue full anticoagulation with lovenox, and discontinue it once INR is 2.0 or above in 2 consecutive days. - I appreciate kitchenwhere maker input regarding management of menorrhagia. - Upon discharge, please arrange for follow up at [facility] in 1- 2 months. Qualifiers: Pulmonary embolism type: other Chronicity: acute Acute cor pulmonale presence: without acute cor pulmonale Qualified Code(s): I26.99 - Other pulmonary embolism without acute cor pulmonale (2) Abnormal CT of liver Current Visit: Yes Status: Acute Assessment and plan: CT chest showed possible enhancing liver lesion within the right hepatic lobe. I agree with completing a CT liver for further assessment. Oncology: Subj Interval history: Patient was transferred to the ICU early today, due to tachycardia and worsening respiratory status. Currently she is on Bipap, her mother says that her breathing has improved. She is awake. - Constitutional Vitals: Vital Signs Temp Pulse Resp BP Pulse Ox 05/09/17 11:02 112 05/09/17 11:00 112 22 133/85 97 05/09/17 10:00 120 16 113/83 96 05/09/17 08:54 60 22 123/72 100 05/09/17 07:56 98.5 F 112 22 150/93 97 05/09/17 07:43 26 141/92 99 05/09/17 07:02 95 05/09/17 07:00 98.5 F 111 23 150/95 99 05/09/17 06:45 30 158/125 98 05/09/17 06:40 26 96 05/09/17 05:45 26 98 05/09/17 05:33 38 81 05/09/17 05:30 145 28 135/59 84 05/09/17 04:44 24 96 05/09/17 00:26 24 96 05/09/17 00:00 97.1 F L 121 24 141/85 88 05/08/17 22:40 36 95 05/08/17 20:08 98.6 F 111 22 123/78 95 05/08/17 16:46 22 96 05/08/17 15:00 83 17 127/84 95 Intake and Output 05/08/17 05/09/17 05/09/17 23:59 07:59 15:59 Intake Total 100 / 100 100 / 100 Balance 100 / 100 100 / 100 Intake: IV Fluids 100 / 100 100 / 100 Zosyn 3.375 GM In Dextrose 5% ( 100 / 100 100 / 100 Minibag+) 100 ML 100 ML @ 25 mls/hr IVPB Q8H STEFANI Rx#: [id number] Oral 0 / 0 0 / 0 Other: # Voids 0 0 Weight 32.2 kg 31 kg Blood Glucose* 114 153 153 Patient Weight 05/09/17 23:59 Weight 31 kg - Respiratory Respiratory exam: Present: CTAB, respiratory distress - Cardiovascular Cardiovascular exam: Present: +S1 - GI/Abdominal GI/Abdominal exam: Present: normal bowel sounds. Absent: organomegaly - Extremities Exam Extremities exam: Present: normal inspection. Absent: pedal edema Oncology: Obj Data - Labs CBC & Chem 7: 05/09/17 04:45 05/09/17 04:45 Labs: Laboratory Results - last 24 hr 05/07/17 05/08/17 05/08/17 11:29 00:36 04:12 WBC RBC Hgb Hct MCV MCH MCHC RDW Plt Count MPV PT INR Sample Site ABG pH ABG pCO2 ABG pO2 ABG HCO3 ABG Total CO2 ABG O2 Saturation ABG Base Excess Harsh Test O2 Delivery Device Inspired O2 Sodium Potassium Chloride Carbon Dioxide BUN Creatinine Est GFR ( Amer) Est GFR (Non-Af Amer) BUN/Creatinine Ratio Glucose POC Glucose 109 H 184 H 110 H Est Mean Plasma Glucose Hemoglobin A1c Calculated Osmolality Calcium 05/08/17 05/08/17 05/09/17 11:45 18:11 00:09 WBC RBC Hgb Hct MCV MCH MCHC RDW Plt Count MPV PT INR Sample Site ABG pH ABG pCO2 ABG pO2 ABG HCO3 ABG Total CO2 ABG O2 Saturation ABG Base Excess Harsh Test O2 Delivery Device Inspired O2 Sodium Potassium Chloride Carbon Dioxide BUN Creatinine Est GFR ( Amer) Est GFR (Non-Af Amer) BUN/Creatinine Ratio Glucose POC Glucose 108 H 114 H 73 Est Mean Plasma Glucose Hemoglobin A1c Calculated Osmolality Calcium 05/09/17 05/09/17 05/09/17 02:23 04:45 04:45 WBC 8.1 RBC 3.87 Hgb 9.9 L Hct 33.3 L MCV 86.0 MCH 25.6 L MCHC 29.7 L RDW 17.3 H Plt Count 276 MPV 10.8 PT 13.9 H INR 1.3 Sample Site ABG pH ABG pCO2 ABG pO2 ABG HCO3 ABG Total CO2 ABG O2 Saturation ABG Base Excess Harsh Test O2 Delivery Device Inspired O2 Sodium Potassium Chloride Carbon Dioxide BUN Creatinine Est GFR ( Amer) Est GFR (Non-Af Amer) BUN/Creatinine Ratio Glucose POC Glucose 92 H Est Mean Plasma Glucose Hemoglobin A1c Calculated Osmolality Calcium 05/09/17 05/09/17 05/09/17 04:45 04:45 05:44 WBC RBC Hgb Hct MCV MCH MCHC RDW Plt Count MPV PT INR Sample Site R Radial ABG pH 7.23 L ABG pCO2 74 H* ABG pO2 70 L ABG HCO3 31 H ABG Total CO2 33 H ABG O2 Saturation 89 L ABG Base Excess 2 Harsh Test Positive O2 Delivery Device NRB Inspired O2 100.0 Sodium 152 H Potassium 3.4 L Chloride 115 H Carbon Dioxide 28 BUN 11 Creatinine 0.86 Est GFR ( Amer) > 60 Est GFR (Non-Af Amer) > 60 BUN/Creatinine Ratio 13 Glucose 74 POC Glucose Est Mean Plasma Glucose 103 Hemoglobin A1c 5.2 Calculated Osmolality 312 H Calcium 8.8 - Impressions Impressions Videofluoroscopic Swallow 05/08/17 08:44 IMPRESSION: Aspiration was identified with both administered consistencies. Please see separate speech pathology report for full discussion of findings and recommendations. D/ / Shakeel Sanders MD / Shakeel Sanders MD Interpreting Provider: Shakeel Sanders MD Chest X-Ray 05/09/17 07:09 IMPRESSION: Stable exam without evidence for acute cardiopulmonary process. D/ / 05/09/2017 08:11:37 Leonides Mancia MD / [facility] Interpreting Provider: Leonides Mancia MD - ABG Interpretation ABG results: ABG ABG pH 7.23 pH Units (7.32-7.45) L 05/09/17 05:44 ABG pCO2 74 mmHg (35-45) H* 05/09/17 05:44 ABG pO2 70 mmHg (85-104) L 05/09/17 05:44 ABG O2 Saturation 89 % (95-98) L 05/09/17 05:44 PT/INR, D-dimer PT 13.9 Seconds (9.4-12.1) H 05/09/17 04:45 D-Dimer 589 ng/mLFEU (0-500) H 05/05/17 16:10 Consult Discharge Plan - Plan Referrals: Chandan Serrano MD [Primary Care Provider] - 05/15/17 2:15 pm
[2017-05-09] MEDS ORDERED: Dexmedetomidine HCl 400 MCG/100 ML MLS IVC ONE (13:25)
[2017-05-09] MEDS ORDERED: Lacri-Lube 3.5 GM TUBE BOTH EYES PRN (13:44)
[2017-05-09 13:49] LABS: ABG Base Excess 3 mEq/L (-2 to 3); ABG HCO3 34 mEq/L (21-27); ABG Oxygen Saturation 100 % (95-98); ABG PCO2 83 mmHg (35-45); ABG PH 7.21 pH Units (7.32-7.45); ABG PO2 283 mmHg (85-104); ABG TCO2 36 mEq/L (20-26); Blood Gas Modality VC; Blood Gas Respiration Rate 12; Blood Gas VT 300 cc
[2017-05-09 13:53] LABS: Bilirubin,Urine Negative (Negative); Blood,Urine Trace (Negative); Clarity,Urine Clear (Clear); Color,Urine Yellow (Yellow); Glucose,Urine (UA) Normal (Normal); Ketones,Urine Negative (Negative); Leukocyte Esterase,Urine Negative (Negative); Nitrite,Urine Negative (Negative); Protein,Urine Negative (Neg-Trace); Specific Gravity,Urine 1.014 (1.010-1.025); Urobilinogen,Urine Normal (Normal)
[2017-05-09] MEDS ORDERED: Dexmedetomidine HCl 400 MCG/100 ML MLS IVC SCH (14:00)
[2017-05-09] MEDS ORDERED: *HR* Midazolam HCl 2 MG/2 ML VIAL IVP ONE (14:27)
[2017-05-09] MEDS ORDERED: Ringers Solution, Lactated 500 ML IVC ONE ×2 (14:29→14:45)
--- NOTE | 2017-05-09 15:06 | Procedure Note ---
<Georgi Logan - Last Filed: 05/09/17 14:59> Date of procedure: 05/09/17 Pre-op diagnosis: Respiratory failure Post-op diagnosis: same Procedure: Endotracheal intubation: Patient had decreasing oxygenation and it was discussed with family regarding the need for mechanical ventilation and the family wished to proceed with endotracheal intubation. The patient was sedated using 2 mg of Versed and 10 mg of propofol. A pediatric fiberoptic video laryngoscope was inserted into the oral cavity and a grade 1 view of the vocal cords was obtained. A mild amount of thick white sputum was suctioned from the larynx. A 6.5 endotracheal tube was then advanced through the vocal cords. CO2 detector was positive for color change. Bilateral breath sounds were appreciated. Chest x-ray showed the endotracheal tube in satisfactory position. Patient was connected to the ventilator. The attending physician, Dr. Castillo, was present through the entire procedure. Anesthesia: IV sedation Surgeon: Georgi Logan Condition: critical Disposition: ICU <Vernon Castillo - Last Filed: 05/09/17 16:35> Procedure: I examined this patient and my medical decision-making was reviewed with the Resident Physician. I agree with the documented findings, disposition and treatment plan as described except to the extent set forth below. I have personally supervised Dr. Logna without immediate complications.
[2017-05-09] MEDS ORDERED: Lactulose Oral Soln 20 GM/30 ML UDC GTUBE ONE (15:27)
[2017-05-09] MEDS: Lacri-Lube 3.5 GM TUBE BOTH EYES SCH ×2 (15:31→20:11)
[2017-05-09] MEDS: Budesonide/Formoterol 80/4.5 MDI IH SCH ×2 (15:56→21:20)
[2017-05-09] MEDS: FentaNYL (PF) 1,000 MCG in 0.9 % Sodium Chloride 80 ML IVC SCH ×2 (16:37→23:44)
--- NOTE | 2017-05-09 17:10 | Electrocardiograph Report ---
[address] [address] Test Date: 2017-05-09 Pat Name: Ro Fairchild Department: 111 Room: [facility] Gender: F Top Loader: [id number] : 1975 Requested By: Miles Israel Order Number: [id number] Reading MD: Nabor Street Measurements Intervals Randall Rate: 133 P: 75 NH: 100 QRS: 25 QRSD: 85 T: 94 QT: 261 QTc: 339 Interpretive Statements SINUS TACHYCARDIA WITH SHORT NH INTERVAL MINIMAL ST DEPRESSION ABNORMAL QRS-T ANGLE Electronically Signed On 05-09-2017 17:08:[address]
[2017-05-09] MEDS ORDERED: *HR* Warfarin 5 MG TABLET PO ONE (18:00)
[2017-05-09] MEDS: Chlorhexidine Rinse 15 ML MOUTHWASH MM SCH (20:10)
[2017-05-10] MEDS: Lacri-Lube 3.5 GM TUBE BOTH EYES SCH ×3 (00:07→09:12)
[2017-05-10] MEDS: *HR* Dextrose 50 % in Water (Syg) 50 ML SYRINGE IVP PRN (01:38)
[2017-05-10 03:45] LABS: Eosinophils # 0.1 K/mcL (0.0-0.6); Eosinophils % 2.1 %; Hematocrit 28.8 % (35.3-44.9); Hemoglobin 8.7 g/dL (11.5-15.4); Immature Granulocytes % 0.2 % (0-4); Lymphocytes % 48.5 %; Mean Corpuscular HGB Conc 30.2 g/dL (31.6-35.5); Mean Corpuscular Volume 86.2 fL (83.0-100.0); Mean Platelet Volume 10.4 fL (9.4-12.4); Monocytes # 0.5 K/mcL (0.0-1.3); Monocytes % 8.6 %; Neutrophils # 2.5 K/mcL (1.6-8.9); Nucleated Red Blood Cells 0.3 /100 WBC (0); Platelet Count 226 K/mcL (140-400); Red Blood Count 3.34 M/mcL (3.82-4.97); Red Cell Distribution Width 17.2 % (11.5-14.5); Segmented Neutrophils % 40.6 %
[2017-05-10] MEDS: Levalbuterol Neb 0.63 MG/3 ML IH SCH ×4 (03:47→21:35)
[2017-05-10 03:51] LABS: INR 1.6; Prothrombin Time 17.4 Seconds (9.4-12.1)
[2017-05-10 03:57] LABS: BUN/Creatinine Ratio 20 (6-26); Blood Urea Nitrogen 16 mg/dL (7-20); Calcium 8.4 mg/dL (8.6-10.8); Carbon Dioxide 34 mEq/L (19-29); Chloride 112 mEq/L (98-109); Glucose 78 mg/dL (70-99); Osmolality,Calculated 316 (280-300); Sodium 153 mEq/L (136-145); eGFR For African Americans > 60 (> 60); eGFR For Non-African Americans > 60 (> 60)
[2017-05-10] MEDS: *HR* Enoxaparin 30 MG/0.3 ML SYRINGE SQ SCH ×2 (06:46→15:46)
--- NOTE | 2017-05-10 08:03 | Pulmonology Progress Note ---
<Vernon Castillo M - Last Filed: 05/10/17 10:13> Date of Encounter: 05/10/17 Objective PUL Vital signs: Last Vital Signs Temp 97.3 F L 05/10/17 04:12 Pulse 44 05/10/17 06:30 Resp 16 05/10/17 07:41 BP 110/53 05/10/17 07:41 Pulse Ox 98 05/10/17 07:41 Ventilator Settings Ventilator Settings: Ventilator Settings, Last 8 Hours Ventilator Mode A/C Ventilator Mode A/C Ventilator Mode A/C Ventilator Mode A/C Ventilator Mode A/C Ventilator Mode A/C Ventilator Mode A/C Ventilator Mode A/C Ventilator Mode A/C Ventilator Tidal Volume 300 Setting Ventilator Tidal Volume 300 Setting Ventilator Tidal Volume 300 Setting Ventilator Tidal Volume 300 Setting Ventilator Tidal Volume 300 Setting Ventilator Tidal Volume 300 Setting Ventilator Tidal Volume 300 Setting Ventilator Tidal Volume 300 Setting Ventilator Tidal Volume 300 Setting Ventilator Respiratory Rate 16 Setting Ventilator Respiratory Rate 16 Setting Ventilator Respiratory Rate 16 Setting Ventilator Respiratory Rate 16 Setting Ventilator Respiratory Rate 16 Setting Ventilator Respiratory Rate 16 Setting Ventilator Respiratory Rate 16 Setting Ventilator Respiratory Rate 16 Setting Ventilator Respiratory Rate 16 Setting Actual Respiratory Rate 16 Actual Respiratory Rate 16 Actual Respiratory Rate 16 Actual Respiratory Rate 16 Actual Respiratory Rate 16 Actual Respiratory Rate 16 Actual Respiratory Rate 16 Actual Respiratory Rate 16 Positive End Expiratory 5 Pressure Positive End Expiratory 5 Pressure Positive End Expiratory 5 Pressure Positive End Expiratory 5 Pressure Positive End Expiratory 5 Pressure Positive End Expiratory 5 Pressure Positive End Expiratory 5 Pressure Positive End Expiratory 5 Pressure Positive End Expiratory 5 Pressure Peak Inspiratory Airway 40 Pressure Peak Inspiratory Airway 32 Pressure Peak Inspiratory Airway 29 Pressure Peak Inspiratory Airway 37 Pressure Peak Inspiratory Airway 32 Pressure Peak Inspiratory Airway 38 Pressure Peak Inspiratory Airway 33 Pressure Peak Inspiratory Airway 34 Pressure Results - Laboratory Findings CBC and BMP: 05/10/17 03:25 05/10/17 03:25 ABG ABG pH 7.33 pH Units (7.32-7.45) 05/10/17 08:47 ABG pCO2 71 mmHg (35-45) H* 05/10/17 08:47 ABG pO2 84 mmHg (85-104) L 05/10/17 08:47 ABG O2 Saturation 95 % (95-98) 05/10/17 08:47 PT/INR, D-dimer PT 17.4 Seconds (9.4-12.1) H 05/10/17 03:25 D-Dimer 589 ng/mLFEU (0-500) H 05/05/17 16:10 Abnormal lab findings: Abnormal lab results RBC 3.34 M/mcL (3.82-4.97) L 05/10/17 03:25 Hgb 8.7 g/dL (11.5-15.4) L 05/10/17 03:25 Hct 28.8 % (35.3-44.9) L 05/10/17 03:25 MCH 26.0 pg (28.0-33.3) L 05/10/17 03:25 MCHC 30.2 g/dL (31.6-35.5) L 05/10/17 03:25 RDW 17.2 % (11.5-14.5) H 05/10/17 03:25 Nucleated RBCs/100 WBC 0.3 /100 WBC (0) H 05/10/17 03:25 PT 17.4 Seconds (9.4-12.1) H 05/10/17 03:25 D-Dimer 589 ng/mLFEU (0-500) H 05/05/17 16:10 ABG pCO2 71 mmHg (35-45) H* 05/10/17 08:47 ABG pO2 84 mmHg (85-104) L 05/10/17 08:47 ABG HCO3 38 mEq/L (21-27) H 05/10/17 08:47 ABG Total CO2 40 mEq/L (20-26) H 05/10/17 08:47 ABG Base Excess 10 mEq/L (-2 to 3) H 05/10/17 08:47 Sodium 153 mEq/L (136-145) H 05/10/17 03:25 Potassium 3.0 mEq/L (3.5-4.5) L 05/10/17 03:25 Chloride 112 mEq/L (98-109) H 05/10/17 03:25 Carbon Dioxide 34 mEq/L (19-29) H 05/10/17 03:25 Calculated Osmolality 316 (280-300) H 05/10/17 03:25 Calcium 8.4 mg/dL (8.6-10.8) L 05/10/17 03:25 Albumin 3.3 g/dL (3.5-5.0) L 05/07/17 03:42 Globulin 3.8 g/dL (2.4-3.5) H 05/07/17 03:42 Albumin/Globulin Ratio 0.9 (1.1-2.2) L 05/07/17 03:42 Urine Blood Trace (Negative) H 05/09/17 09:07 - Microbiology Findings Microbiology Findings: Microbiology, Last 48 Hours 05/09/17 13:37 Sputum Culture - Preliminary Sputum - Clinical Findings Intake & Output: Intake & Output 05/09/17 05/10/17 05/10/17 23:59 07:59 15:59 Intake Total 260.3 / 260.3 103 / 103 Output Total 325 / 325 45 / 45 Balance -64.7 / -64.7 58 / 58 Weight 31.6 kg Consult Discharge Plan - Plan Referrals: Chandan Serrano MD [Primary Care Provider] - 05/15/17 2:15 pm - Attending Attestation I examined this patient and my medical decision-making was reviewed with the Resident Physician. I agree with the documented findings, disposition and treatment plan as described except to the extent set forth below. Patient seen and examined. Labs, radiology, chart personally reviewed. 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 Pulmonary: Changed vent setting for respiratory hypercapnic failure and she still need a vent support. Prognosis is unknown, however overall very poor. Continue coverage for possible aspiration pneumonia. FiO2 increased and then start to lower her suspect agitation is something to do with it. Cardiovascular: stable GI: Nutrition per dietary and GI prophylaxis per routine Heme: DVT prophylaxis per routine ID: Continue antibiotics and plan to de-escalation Renal; urine out put and renal funtion reviewed. Increased free water replacement for hypernatremia Endorcine: blood glucose is monitored Lines: all lines checked and no evidence of infections Skin: skin care to prevent pressure ulcers per nursing routine care Discussed with the family at the bedside I spent 35 min of Critical Care time with this patient. It involved decision making of high complexity to assess, manipulate, and support vital organ system failure and/or to prevent further life threatening deterioration of the patient' s condition. The time involved in the performance of separately reportable procedures was not counted toward critical care time. 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 Current Visit: Yes Status: Acute -DDAVP 0.4mg -urine sodium 137; UA otherwise unremarkable (3) Bilateral pulmonary embolism Current Visit: Yes Status: Acute -Potentially contributing to pt's initial presentation of acute respiratory failure with hypoxia -h/o Factor V Leiden -currently anticoagulated with lovenox -coumadin being held until PEG placement, anticipating placement 05/13/17 (4) Factor V Leiden Current Visit: No Status: Acute -currently anticoagulated with lovenox -coumadin being held until PEG placement, anticipating placement 05/13/17 (5) DVT prophylaxis Current Visit: Yes Status: Acute -currently anticoagulated on lovenox -coumadin being held until after PEG placement, which is anticipated for Subjective Principal diagnosis: acute respiratory failure with hypoxia Interval history: Pt seen and examined at bedside, her mother is present in the room. Pt appears to be resting comfortably while on mechanical ventilation. Pt's mother states pt had a good night and was able to get some rest. Pt's mother has no concerns at this time. Objective PUL Vital signs: Last Vital Signs Temp 97.3 F L 05/10/17 04:12 Pulse 44 05/10/17 06:30 Resp 16 05/10/17 07:41 BP 110/53 05/10/17 07:41 Pulse Ox 98 05/10/17 07:41 General appearance: no acute distress Eyes: nonicteric Effort: normal Auscultation: bilateral: other (improved airflow, occasional rhonchorous breath sounds) Cardiovascular: other (regular rhythm, bradycardic rate (mid to high 40's bpm)) Gastrointestinal: normoactive bowel sounds, soft, non-tender, non-distended Extremities: no cyanosis, no edema, pulses normal unable to assess due to mental status Ventilator Settings Ventilator Settings: Ventilator Settings, Last 8 Hours Ventilator Mode A/C Ventilator Mode A/C Ventilator Mode A/C Ventilator Mode A/C Ventilator Mode A/C Ventilator Mode A/C Ventilator Mode A/C Ventilator Mode A/C Ventilator Mode A/C Ventilator Mode A/C Ventilator Tidal Volume 300 Setting Ventilator Tidal Volume 300 Setting Ventilator Tidal Volume 300 Setting Ventilator Tidal Volume 300 Setting Ventilator Tidal Volume 300 Setting Ventilator Tidal Volume 300 Setting Ventilator Tidal Volume 300 Setting Ventilator Tidal Volume 300 Setting Ventilator Tidal Volume 300 Setting Ventilator Tidal Volume 300 Setting Ventilator Respiratory Rate 16 Setting Ventilator Respiratory Rate 16 Setting Ventilator Respiratory Rate 16 Setting Ventilator Respiratory Rate 16 Setting Ventilator Respiratory Rate 16 Setting Ventilator Respiratory Rate 16 Setting Ventilator Respiratory Rate 16 Setting Ventilator Respiratory Rate 16 Setting Ventilator Respiratory Rate 16 Setting Ventilator Respiratory Rate 16 Setting Actual Respiratory Rate 16 Actual Respiratory Rate 16 Actual Respiratory Rate 16 Actual Respiratory Rate 16 Actual Respiratory Rate 16 Actual Respiratory Rate 16 Actual Respiratory Rate 16 Actual Respiratory Rate 16 Actual Respiratory Rate 16 Actual Respiratory Rate 16 Positive End Expiratory 5 Pressure Positive End Expiratory 5 Pressure Positive End Expiratory 5 Pressure Positive End Expiratory 5 Pressure Positive End Expiratory 5 Pressure Positive End Expiratory 5 Pressure Positive End Expiratory 5 Pressure Positive End Expiratory 5 Pressure Positive End Expiratory 5 Pressure Positive End Expiratory 5 Pressure Peak Inspiratory Airway 40 Pressure Peak Inspiratory Airway 32 Pressure Peak Inspiratory Airway 29 Pressure Peak Inspiratory Airway 37 Pressure Peak Inspiratory Airway 32 Pressure Peak Inspiratory Airway 38 Pressure Peak Inspiratory Airway 33 Pressure Peak Inspiratory Airway 34 Pressure Peak Inspiratory Airway 32 Pressure Peak Inspiratory Airway 32 Pressure Results - Laboratory Findings CBC and BMP: 05/10/17 03:25 05/10/17 03:25 ABG ABG pH 7.21 pH Units (7.32-7.45) L 05/09/17 13:44 ABG pCO2 83 mmHg (35-45) H* 05/09/17 13:44 ABG pO2 283 mmHg (85-104) H 05/09/17 13:44 ABG O2 Saturation 100 % (95-98) H 05/09/17 13:44 PT/INR, D-dimer PT 17.4 Seconds (9.4-12.1) H 05/10/17 03:25 D-Dimer 589 ng/mLFEU (0-500) H 05/05/17 16:10 Abnormal lab findings: Abnormal lab results RBC 3.34 M/mcL (3.82-4.97) L 05/10/17 03:25 Hgb 8.7 g/dL (11.5-15.4) L 05/10/17 03:25 Hct 28.8 % (35.3-44.9) L 05/10/17 03:25 MCH 26.0 pg (28.0-33.3) L 05/10/17 03:25 MCHC 30.2 g/dL (31.6-35.5) L 05/10/17 03:25 RDW 17.2 % (11.5-14.5) H 05/10/17 03:25 Nucleated RBCs/100 WBC 0.3 /100 WBC (0) H 05/10/17 03:25 PT 17.4 Seconds (9.4-12.1) H 05/10/17 03:25 D-Dimer 589 ng/mLFEU (0-500) H 05/05/17 16:10 ABG pH 7.21 pH Units (7.32-7.45) L 05/09/17 13:44 ABG pCO2 83 mmHg (35-45) H* 05/09/17 13:44 ABG pO2 283 mmHg (85-104) H 05/09/17 13:44 ABG HCO3 34 mEq/L (21-27) H 05/09/17 13:44 ABG Total CO2 36 mEq/L (20-26) H 05/09/17 13:44 ABG O2 Saturation 100 % (95-98) H 05/09/17 13:44 Sodium 153 mEq/L (136-145) H 05/10/17 03:25 Potassium 3.0 mEq/L (3.5-4.5) L 05/10/17 03:25 Chloride 112 mEq/L (98-109) H 05/10/17 03:25 Carbon Dioxide 34 mEq/L (19-29) H 05/10/17 03:25 Calculated Osmolality 316 (280-300) H 05/10/17 03:25 Calcium 8.4 mg/dL (8.6-10.8) L 05/10/17 03:25 Albumin 3.3 g/dL (3.5-5.0) L 05/07/17 03:42 Globulin 3.8 g/dL (2.4-3.5) H 05/07/17 03:42 Albumin/Globulin Ratio 0.9 (1.1-2.2) L 05/07/17 03:42 Urine Blood Trace (Negative) H 05/09/17 09:07 - Microbiology Findings Microbiology Findings: Microbiology, Last 48 Hours 05/09/17 13:37 Sputum Culture - Preliminary Sputum - Clinical Findings Intake & Output: Intake & Output 05/09/17 05/10/17 05/10/17 23:59 07:59 15:59 Intake Total 260.3 / 260.3 103 / 103 Output Total 325 / 325 45 / 45 Balance -64.7 / -64.7 58 / 58 Weight 31.6 kg
[2017-05-10 08:50] LABS: ABG Base Excess 10 mEq/L (-2 to 3); ABG HCO3 38 mEq/L (21-27); ABG Oxygen Saturation 95 % (95-98); ABG PCO2 71 mmHg (35-45); ABG PH 7.33 pH Units (7.32-7.45); ABG PO2 84 mmHg (85-104); ABG TCO2 40 mEq/L (20-26); Blood Gas Modality ASSIST CONTROL; Blood Gas PEEP 5 cm H2O; Blood Gas Respiration Rate 16; Blood Gas VT 300 cc
[2017-05-10] MEDS: Potassium Chloride Elixir 20 MEQ/15 ML UDC GTUBE SCH (09:17)
[2017-05-10] MEDS: Baclofen 10 MG TABLET PO SCH ×2 (09:18→20:40)
[2017-05-10] MEDS: Chlorhexidine Rinse 15 ML MOUTHWASH MM SCH ×2 (09:18→20:39)
[2017-05-10] MEDS: Famotidine 20 MG TABLET PO SCH (09:18)
--- NOTE | 2017-05-10 09:48 | Gastroenterology Consult Note ---
<Elmer Meyer - Last Filed: 05/10/17 15:45> Date of Encounter: 05/10/17 Time of Encounter: 09:44 - Assessment and plan (1) Dysphagia, oropharyngeal phase Current Visit: Yes Status: Acute Assessment and plan: Patient demonstrated difficulty with swallowing and inability to pass honey thickened liquids. Speech evaluation demonstrated oral pharyngeal dysphagia and family meeting discussed with recommendations for PEG tube placement. - Currently patient's INR is 1.6 that she was placed on warfarin therapy due to bilateral pulmonary embolisms. This will have to be held today and an INR checked on Saturday morning for potential PEG tube placement if INR level appropriate - This was discussed with the primary team and the patient's family who were in agreement. (2) Dysphagia, pharyngeal Current Visit: Yes Status: Acute Assessment and plan: As discussed above. (3) Bilateral pulmonary embolism Current Visit: Yes Status: Acute Assessment and plan: Patient has bilateral pulmonary embolisms affecting her respiratory status. Patient's currently on Lovenox for bridging to chronic warfarin therapy. - Patient to be placed back on subcutaneous Lovenox or heparin with holding warfarin therapy, plan for PEG tube placement on Saturday. - Time Spent With Patient Total time spent is greater than 50% in coordination of care (as documented) at patient's floor/unit and/or counseling patient: GI History of Present Illness - Data of Consult Consult date: 05/10/17 Requesting Physician: Miles Israel MD - Consult Narrative Reason for consult: PEG tube History of present illness: Ms. Fairchild is a 42 year old female PMH of GERD cerebral palsy, diabetes insipidus, factor 5 leiden, DVT, and PE presented to the emergency department on 05/05/2017 with 5 days progressive worsening wheezing and shortness of breath with increased oxygen demand from baseline and found to have bilateral pulmonary embolisms. Since admission her respiratory status progressively declined to the point she required endotracheal tube intubation and mechanical ventilation. Patient has known cerebral palsy and has demonstrated difficulty with oral intake, she was seen by speech therapy and underwent evaluation demonstrating oral pharyngeal dysphagia with pooling in the vallecular spaces. After discussion with family in goals of care there were agreeable to PEG tube placement for long-term nutritional supplementation. Colonoscopy: none EGD: none Past Med Surg Social Fam HX - Past Medical History Medical history: diabetes, GERD, other Psychiatric history: no psych history - Social History Smoking Status: Never smoker Smokeless Tobacco Status: No Alcohol use: none Drug use: none - Family History Mother Adopted: No Living Status: Still Living Hx Family Cardiac Disorders: Yes (HTN) Hx Family Endocrine Disorder: Yes (T2DM) ROS unobtainable: due to endotracheal tube, due to mental status - Constitutional Vitals: Temp Pulse Resp BP Pulse Ox 97.3 F L 44 16 110/53 98 05/10/17 04:12 05/10/17 06:30 05/10/17 07:41 05/10/17 07:41 05/10/17 07:41 General appearance: Present: thin Exam: Intubated, not sedated. Poor musculature diffuse - Head Head exam: Present: atraumatic, normocephalic - Eye Eye exam: Present: normal appearance, sclera anicteric - ENT Additional comments: Endotracheal tube in place, OG tube in place. - Neck Neck exam general surgery: Present: normal inspection, trachea midline - Respiratory Additional comments: Diffuse wheezing and rhonchi - Cardiovascular Cardiovascular exam: Present: RRR, +S1, +S2 - GI/Abdominal GI/Abdominal exam: Present: normal bowel sounds, soft, no peritoneal signs Additional comments: Sunken abdomen. - Extremities Exam Additional comments: Diffusely poor musculature with extremity contractures - Neurological Exam Neurological exam: Present: alert - Psychiatric Psychiatric exam: Present: anxious - Skin Skin exam: Present: normal color, warm Results - Labs CBC & Chem 7: 05/10/17 03:25 05/10/17 03:25 Labs: Last Result Calcium 8.4 mg/dL (8.6-10.8) L 05/10/17 03:25 Troponin I 0.00 ng/mL (0-0.03) 05/05/17 16:10 Entire Visit Hgb 8.7 g/dL (11.5-15.4) L 05/10/17 03:25 Hct 28.8 % (35.3-44.9) L 05/10/17 03:25 PT 17.4 Seconds (9.4-12.1) H 05/10/17 03:25 Total Bilirubin 0.3 mg/dL (0.2-1.2) 05/07/17 03:42 AST 25 Units/L (5-34) 05/07/17 03:42 ALT 13 Units/L (0-55) 05/07/17 03:42 - ABG ABG results: ABG ABG pH 7.33 pH Units (7.32-7.45) 05/10/17 08:47 ABG pCO2 71 mmHg (35-45) H* 05/10/17 08:47 ABG pO2 84 mmHg (85-104) L 05/10/17 08:47 ABG O2 Saturation 95 % (95-98) 05/10/17 08:47 PT/INR, D-dimer PT 17.4 Seconds (9.4-12.1) H 05/10/17 03:25 D-Dimer 589 ng/mLFEU (0-500) H 05/05/17 16:10 - Impressions Impressions Chest X-Ray 05/09/17 00:00 IMPRESSION: Endotracheal tube tip projects over lower thoracic trachea. The nitesh is obscured. Gastric drain side hole projects over the distal esophagus. Advancement is recommended. The findings were sent to the Radiology Results Communication [facility] at 1:57 pm on 05/09/2017to be communicated to a licensed caregiver. D/ / Clinton Roach MD / Clinton Roach MD Interpreting Provider: Clinton Roach MD Chest X-Ray 05/09/17 00:00 IMPRESSION: 1. Endotracheal tube in satisfactory position. 2. Interval advancement of patient's orogastric tube, which while the tip and side port are now located within the gastric body, the tube is coiled within the stomach and is not in ideal position. Consider repositioning of the tube to relieve the coiled portion within the stomach. 3. Interval development of right basilar airspace opacity, representing either atelectasis, pneumonia, or aspiration. The findings were sent to the Radiology Results Communication Center at 4:04 pm on 05/09/2017to be communicated to a licensed caregiver. D/ / Franklyn Allen MD / Franklyn Allen MD Interpreting Provider: Franklyn Allen MD X-Ray 05/09/17 15:27 IMPRESSION: 1. Orogastric tube in proper position within the stomach. 2. Nonspecific bowel gas pattern, without gross evidence of free air. D/ / Franklyn Allen MD / Franklyn Allen MD Interpreting Provider: Franklyn Allen MD Chest X-Ray 05/10/17 05:00 IMPRESSION: Atelectasis at the bilateral lung bases, stable. Superimposed pneumonia is difficult to exclude. D/ / Kingsley Olivares MD / Kingsley Olivares MD Interpreting Provider: Kingsley Olivares MD Consult Discharge Plan - Plan Referrals: Chandan Serrano MD [Primary Care Provider] - 05/15/17 2:15 pm <Sidney Villanueva - Last Filed: 05/13/17 12:06> Date of Encounter: 05/10/17 - Time Spent With Patient Total time spent is greater than 50% in coordination of care (as documented) at patient's floor/unit and/or counseling patient: GI History of Present Illness - Data of Consult Requesting Physician: Miles Israel MD - Consult Narrative History of present illness: Ms. Fairchild is a 42 year old female - Constitutional Vitals: Temp Pulse Resp BP Pulse Ox 98.8 F 62 24 135/78 100 05/13/17 11:37 05/13/17 11:00 05/13/17 11:15 05/13/17 11:00 05/13/17 11:15 Results - Labs CBC & Chem 7: 05/13/17 04:38 05/13/17 10:52 Labs: Last Result Calcium 8.5 mg/dL (8.6-10.8) L 05/13/17 10:52 Troponin I 0.00 ng/mL (0-0.03) 05/05/17 16:10 Entire Visit Hgb 9.4 g/dL (11.5-15.4) L 05/13/17 04:38 Hct 31.0 % (35.3-44.9) L 05/13/17 04:38 PT 18.0 Seconds (9.4-12.1) H 05/13/17 04:38 Total Bilirubin 0.5 mg/dL (0.2-1.2) 05/12/17 03:18 AST 54 Units/L (5-34) H 05/12/17 03:18 ALT 42 Units/L (0-55) 05/12/17 03:18 - ABG ABG results: ABG ABG pH 7.33 pH Units (7.32-7.45) 05/10/17 08:47 ABG pCO2 71 mmHg (35-45) H* 05/10/17 08:47 ABG pO2 84 mmHg (85-104) L 05/10/17 08:47 ABG O2 Saturation 95 % (95-98) 05/10/17 08:47 PT/INR, D-dimer PT 18.0 Seconds (9.4-12.1) H 05/13/17 04:38 D-Dimer 589 ng/mLFEU (0-500) H 05/05/17 16:10 - Attending Attestation I examined and interviewed Ms. Cousins and her family myself and reviewed her labs and scans for this consultation. Patient's family are ready to have PEG placed but, INR elevated. Plan OG tube and feeding starting today and recheck coags for EGD PEG Saturday.
[2017-05-10] MEDS: Budesonide/Formoterol 80/4.5 MDI IH SCH ×2 (09:57→21:36)
[2017-05-10] MEDS: *HR* Morphine 2 MG/ML SYRINGE IVP PRN (10:25)
[2017-05-10] MEDS: Artificial Tears SOLN 15 ML BOTTLE BOTH EYES SCH ×4 (12:19→20:41)
[2017-05-10] MEDS: FentaNYL (PF) 1,000 MCG in 0.9 % Sodium Chloride 80 ML IVC SCH (13:32)
[2017-05-10] MEDS: Albuterol 2.5 MG/3 ML NEBULIZER IH PRN (17:07)
[2017-05-10] MEDS ORDERED: *HR* Warfarin 2.5 MG TABLET PO ONE (18:00)
[2017-05-11 04:02] LABS: INR 2.8; Prothrombin Time 30.4 Seconds (9.4-12.1)
[2017-05-11] MEDS: Levalbuterol Neb 0.63 MG/3 ML IH SCH ×4 (04:09→22:28)
[2017-05-11] MEDS: *HR* Enoxaparin 30 MG/0.3 ML SYRINGE SQ SCH ×2 (06:57→18:07)
--- NOTE | 2017-05-11 09:21 | Pulmonology Progress Note ---
Date of Encounter: 05/11/17 Time of Encounter: 07:25 Assessment and Plan (1) Acute respiratory failure with hypoxia Current Visit: Yes Status: Resolved Patient tolerated spontaneous breathing trial and was able to wean off FiO2 and subsequently extubated. Patient is doing well and they discussed with the family at the bedside if she is worse in then will need to discuss reintubation and they agree with that. Continue supportive care. (2) Aspiration pneumonia Current Visit: Yes Status: Acute Continue current treatment and family wants to wait for any feeding tube at this time. Qualifiers: Aspiration pneumonia type: unspecified Laterality: right Lung location: lower lobe of lung Qualified Code(s): J69.0 - Pneumonitis due to inhalation of food and vomit (3) Hypernatremia Current Visit: Yes Status: Acute Continue with replacement of water and repeat chemistry. Subjective Principal diagnosis: acute respiratory failure with hypoxia Interval history: Patient is tolerating CPAP trial Objective PUL Vital signs: Last Vital Signs Temp 98.7 F 05/11/17 08:13 Pulse 101 05/11/17 06:30 Resp 14 05/11/17 09:13 BP 97/48 05/11/17 09:13 Pulse Ox 98 05/11/17 09:05 General appearance: no acute distress Eyes: nonicteric Mallampati (class): 1 Neck: supple Effort: normal Auscultation: left: clear, right: rhonchi Cardiovascular: regular rate and rhythm Gastrointestinal: normoactive bowel sounds, non-distended Extremities: no cyanosis unable to assess due to mental status anxious Ventilator Settings Ventilator Settings: Ventilator Settings, Last 8 Hours Ventilator Mode A/C Ventilator Mode A/C Ventilator Mode A/C Ventilator Mode A/C Ventilator Mode A/C Ventilator Mode A/C Ventilator Mode A/C Ventilator Mode A/C Ventilator Tidal Volume 300 Setting Ventilator Tidal Volume 300 Setting Ventilator Tidal Volume 300 Setting Ventilator Tidal Volume 300 Setting Ventilator Tidal Volume 300 Setting Ventilator Tidal Volume 300 Setting Ventilator Tidal Volume 300 Setting Ventilator Tidal Volume 300 Setting Ventilator Respiratory Rate 18 Setting Ventilator Respiratory Rate 18 Setting Ventilator Respiratory Rate 18 Setting Ventilator Respiratory Rate 18 Setting Ventilator Respiratory Rate 18 Setting Ventilator Respiratory Rate 18 Setting Ventilator Respiratory Rate 18 Setting Ventilator Respiratory Rate 18 Setting Actual Respiratory Rate 22 Actual Respiratory Rate 18 Actual Respiratory Rate 18 Actual Respiratory Rate 18 Actual Respiratory Rate 22 Actual Respiratory Rate 18 Actual Respiratory Rate 18 Actual Respiratory Rate 18 Positive End Expiratory 5 Pressure Positive End Expiratory 5 Pressure Positive End Expiratory 5 Pressure Positive End Expiratory 5 Pressure Positive End Expiratory 5 Pressure Positive End Expiratory 5 Pressure Positive End Expiratory 5 Pressure Positive End Expiratory 5 Pressure Peak Inspiratory Airway 20 Pressure Peak Inspiratory Airway 21 Pressure Peak Inspiratory Airway 20 Pressure Peak Inspiratory Airway 26 Pressure Peak Inspiratory Airway 27 Pressure Peak Inspiratory Airway 30 Pressure Peak Inspiratory Airway 21 Pressure Peak Inspiratory Airway 22 Pressure Results - Laboratory Findings CBC and BMP: 05/10/17 03:25 05/10/17 03:25 ABG ABG pH 7.33 pH Units (7.32-7.45) 05/10/17 08:47 ABG pCO2 71 mmHg (35-45) H* 05/10/17 08:47 ABG pO2 84 mmHg (85-104) L 05/10/17 08:47 ABG O2 Saturation 95 % (95-98) 05/10/17 08:47 PT/INR, D-dimer PT 30.4 Seconds (9.4-12.1) H D 05/11/17 03:15 D-Dimer 589 ng/mLFEU (0-500) H 05/05/17 16:10 Abnormal lab findings: Abnormal lab results RBC 3.34 M/mcL (3.82-4.97) L 05/10/17 03:25 Hgb 8.7 g/dL (11.5-15.4) L 05/10/17 03:25 Hct 28.8 % (35.3-44.9) L 05/10/17 03:25 MCH 26.0 pg (28.0-33.3) L 05/10/17 03:25 MCHC 30.2 g/dL (31.6-35.5) L 05/10/17 03:25 RDW 17.2 % (11.5-14.5) H 05/10/17 03:25 Nucleated RBCs/100 WBC 0.3 /100 WBC (0) H 05/10/17 03:25 PT 30.4 Seconds (9.4-12.1) H D 05/11/17 03:15 D-Dimer 589 ng/mLFEU (0-500) H 05/05/17 16:10 ABG pCO2 71 mmHg (35-45) H* 05/10/17 08:47 ABG pO2 84 mmHg (85-104) L 05/10/17 08:47 ABG HCO3 38 mEq/L (21-27) H 05/10/17 08:47 ABG Total CO2 40 mEq/L (20-26) H 05/10/17 08:47 ABG Base Excess 10 mEq/L (-2 to 3) H 05/10/17 08:47 Sodium 153 mEq/L (136-145) H 05/10/17 03:25 Potassium 3.0 mEq/L (3.5-4.5) L 05/10/17 03:25 Chloride 112 mEq/L (98-109) H 05/10/17 03:25 Carbon Dioxide 34 mEq/L (19-29) H 05/10/17 03:25 Calculated Osmolality 316 (280-300) H 05/10/17 03:25 Calcium 8.4 mg/dL (8.6-10.8) L 05/10/17 03:25 Albumin 3.3 g/dL (3.5-5.0) L 05/07/17 03:42 Globulin 3.8 g/dL (2.4-3.5) H 05/07/17 03:42 Albumin/Globulin Ratio 0.9 (1.1-2.2) L 05/07/17 03:42 Urine Blood Trace (Negative) H 05/09/17 09:07 - Microbiology Findings Microbiology Findings: Microbiology, Last 48 Hours 05/09/17 13:37 Sputum Culture - Final Sputum Pseudomonas aeruginosa - Clinical Findings Intake & Output: Intake & Output 05/10/17 05/11/17 05/11/17 23:59 07:59 15:59 Intake Total 425 / 425 422 / 422 Output Total 200 / 200 150 / 150 100 / 100 Balance 225 / 225 272 / 272 -100 / -100 Weight 31 kg Consult Discharge Plan - Plan Referrals: Chandan Serrano MD [Primary Care Provider] - 05/15/17 2:15 pm
[2017-05-11] MEDS: Famotidine 20 MG TABLET PO SCH (10:17)
[2017-05-11] MEDS: Baclofen 10 MG TABLET PO SCH ×2 (10:17→19:55)
[2017-05-11] MEDS: Potassium Chloride Elixir 20 MEQ/15 ML UDC GTUBE SCH (10:17)
[2017-05-11] MEDS: Chlorhexidine Rinse 15 ML MOUTHWASH MM SCH ×2 (10:17→19:55)
[2017-05-11] MEDS: Artificial Tears SOLN 15 ML BOTTLE BOTH EYES SCH ×4 (10:21→21:38)
[2017-05-11 10:51] LABS: BUN/Creatinine Ratio 15 (6-26); Blood Urea Nitrogen 10 mg/dL (7-20); Calcium 8.8 mg/dL (8.6-10.8); Carbon Dioxide 33 mEq/L (19-29); Chloride 109 mEq/L (98-109); Glucose 105 mg/dL (70-99); Osmolality,Calculated 303 (280-300); Potassium 3.9 mEq/L (3.5-4.5); Sodium 147 mEq/L (136-145); eGFR For African Americans > 60 (> 60); eGFR For Non-African Americans > 60 (> 60)
[2017-05-11] MEDS: Budesonide/Formoterol 80/4.5 MDI IH SCH ×2 (11:12→22:29)
[2017-05-11] MEDS: D5% in 0.45% NACL 1,000 ML IVC SCH (13:47)
[2017-05-12 03:32] LABS: INR 1.7; Prothrombin Time 18.2 Seconds (9.4-12.1)
[2017-05-12 03:35] LABS: Ionized Calcium 1.13 mmol/L (1.15-1.35)
[2017-05-12] MEDS: D5% in 0.45% NACL 1,000 ML IVC SCH ×2 (03:38→17:07)
[2017-05-12 03:42] LABS: Alanine Aminotransferase 42 Units/L (0-55); Albumin 2.7 g/dL (3.5-5.0); Albumin/Globulin Ratio 0.9 (1.1-2.2); Alkaline Phosphatase 55 Units/L (38-126); Aspartate Amino Transferase 54 Units/L (5-34); BUN/Creatinine Ratio 8 (6-26); Bilirubin,Total 0.5 mg/dL (0.2-1.2); Calcium 8.4 mg/dL (8.6-10.8); Carbon Dioxide 31 mEq/L (19-29); Chloride 109 mEq/L (98-109); Globulin 3.1 g/dL (2.4-3.5); Glucose 109 mg/dL (70-99); Magnesium 1.2 mg/dL (1.6-2.6); Osmolality,Calculated 298 (280-300); Phosphorous 2.2 mg/dL (2.3-4.7); Potassium 3.4 mEq/L (3.5-4.5); Sodium 145 mEq/L (136-145); Total Protein 5.8 g/dL (6.0-8.3); eGFR For African Americans > 60 (> 60); eGFR For Non-African Americans > 60 (> 60)
[2017-05-12 03:44] LABS: Blood Urea Nitrogen 5 mg/dL (7-20)
[2017-05-12] MEDS: Levalbuterol Neb 0.63 MG/3 ML IH SCH ×4 (04:33→22:29)
[2017-05-12] MEDS: *HR* Enoxaparin 30 MG/0.3 ML SYRINGE SQ SCH ×3 (06:09→17:33)
[2017-05-12] MEDS ORDERED: Calcium Gluconate 1,000 MG in D5% in Water 100 ML IVPB PRN (06:33)
[2017-05-12] MEDS ORDERED: Potassium Chloride 40 MEQ/200 ML BAG IVPB PRN (06:33)
[2017-05-12] MEDS: Magnesium Sulfate 2 GM in D5% in Water 100 ML IVPB PRN ×2 (08:04→21:49)
--- NOTE | 2017-05-12 08:29 | Pulmonology Progress Note ---
<Vernon Castillo M - Last Filed: 05/12/17 09:45> Date of Encounter: 05/12/17 Assessment and Plan (1) Acute respiratory failure with hypoxia Current Visit: Yes Status: Resolved (2) Aspiration pneumonia Current Visit: Yes Status: Acute Qualifiers: Aspiration pneumonia type: unspecified Laterality: right Lung location: lower lobe of lung Qualified Code(s): J69.0 - Pneumonitis due to inhalation of food and vomit (3) Hypernatremia Current Visit: Yes Status: Acute Objective PUL Vital signs: Last Vital Signs Temp 99.6 F 05/12/17 08:03 Pulse 111 05/12/17 08:00 Resp 20 05/12/17 08:00 BP 130/76 05/12/17 08:00 Pulse Ox 97 05/12/17 08:00 Results - Laboratory Findings CBC and BMP: 05/12/17 08:55 05/12/17 03:18 ABG ABG pH 7.33 pH Units (7.32-7.45) 05/10/17 08:47 ABG pCO2 71 mmHg (35-45) H* 05/10/17 08:47 ABG pO2 84 mmHg (85-104) L 05/10/17 08:47 ABG O2 Saturation 95 % (95-98) 05/10/17 08:47 PT/INR, D-dimer PT 18.2 Seconds (9.4-12.1) H 05/12/17 03:18 D-Dimer 589 ng/mLFEU (0-500) H 05/05/17 16:10 Abnormal lab findings: Abnormal lab results RBC 3.79 M/mcL (3.82-4.97) L 05/12/17 08:55 Hgb 10.0 g/dL (11.5-15.4) L 05/12/17 08:55 Hct 32.3 % (35.3-44.9) L 05/12/17 08:55 MCH 26.4 pg (28.0-33.3) L 05/12/17 08:55 MCHC 31.0 g/dL (31.6-35.5) L 05/12/17 08:55 RDW 17.0 % (11.5-14.5) H 05/12/17 08:55 Nucleated RBCs/100 WBC 0.3 /100 WBC (0) H 05/10/17 03:25 PT 18.2 Seconds (9.4-12.1) H 05/12/17 03:18 D-Dimer 589 ng/mLFEU (0-500) H 05/05/17 16:10 ABG pCO2 71 mmHg (35-45) H* 05/10/17 08:47 ABG pO2 84 mmHg (85-104) L 05/10/17 08:47 ABG HCO3 38 mEq/L (21-27) H 05/10/17 08:47 ABG Total CO2 40 mEq/L (20-26) H 05/10/17 08:47 ABG Base Excess 10 mEq/L (-2 to 3) H 05/10/17 08:47 Potassium 3.4 mEq/L (3.5-4.5) L 05/12/17 03:18 Carbon Dioxide 31 mEq/L (19-29) H 05/12/17 03:18 BUN 5 mg/dL (7-20) L 05/12/17 03:18 Glucose 109 mg/dL (70-99) H 05/12/17 03:18 POC Glucose 114 (58-89) H 05/11/17 23:43 Calcium 8.4 mg/dL (8.6-10.8) L 05/12/17 03:18 Ionized Calcium 1.13 mmol/L (1.15-1.35) L 05/12/17 03:18 Phosphorus 2.2 mg/dL (2.3-4.7) L 05/12/17 03:18 Magnesium 1.2 mg/dL (1.6-2.6) L 05/12/17 03:18 AST 54 Units/L (5-34) H 05/12/17 03:18 Serum Total Protein 5.8 g/dL (6.0-8.3) L 05/12/17 03:18 Albumin 2.7 g/dL (3.5-5.0) L 05/12/17 03:18 Albumin/Globulin Ratio 0.9 (1.1-2.2) L 05/12/17 03:18 Urine Blood Trace (Negative) H 05/09/17 09:07 - Microbiology Findings Microbiology Findings: Microbiology, Last 48 Hours 05/09/17 13:37 Sputum Culture - Final Sputum Pseudomonas aeruginosa - Clinical Findings Intake & Output: Intake & Output 05/11/17 05/12/17 05/12/17 23:59 07:59 15:59 Intake Total 1000 / 1000 359 / 359 Output Total 550 / 550 250 / 250 150 / 150 Balance -550 / -550 750 / 750 209 / 209 Weight 31.3 kg Consult Discharge Plan - Plan Referrals: Chandan Serrano MD [Primary Care Provider] - 05/15/17 2:15 pm - Attending Attestation I examined this patient and my medical decision-making was reviewed with the Resident Physician. I agree with the documented findings, disposition and treatment plan as described except to the extent set forth below. Patient seen and examined. Labs, radiology, chart personally reviewed. Agree with resident's history and physical, assessment, plan with following comments: NICU RN: Patient awake and not in distress, Pulmonary: Acceptable oxygenation and ventilation him a however she is requiring higher FiO2 and discussed with the family that there is possibility of aspiration and also the fact she has pulmonary embolism in this setting is not helping. Continue pulmonary toilet and she will need to be in ICU for close monitoring. Cardiovascular: stable GI: Nutrition per dietary and GI prophylaxis per routine. Patient may need PEG tube and this is to be discussed with the family by GI. Mother understand PEG tube still have a risk of aspiration. Heme: DVT prophylaxis per routine. Patient is on Lovenox. ID: Continue antibiotics and plan to de-escalation Renal; urine out put and renal funtion reviewed Endorcine: blood glucose is monitored Lines: all lines checked and no evidence of infections Skin: skin care to prevent pressure ulcers per nursing routine care I suspect overall prognosis is poor. <Catina Claudio - Last Filed: 05/12/17 12:26> Date of Encounter: 05/12/17 Time of Encounter: 08:28 Assessment and Plan (1) Acute respiratory failure with hypoxia Current Visit: Yes Status: Resolved Patient now high-flow oxygen nasal cannula CXR this morning stable Continue supportive care, monitoring respiratory status (2) Aspiration pneumonia Current Visit: Yes Status: Acute Family unsure of whether feeding tube placement should be placed. Yesterday, requested to wait, however today would like to proceed Recommend that family is at bedside prior to placement Initiating Scopolomine patch for secretion GI on consult, appreciate recs Given patienth's histoyr, will need to coordinate anticoagulation prior to placement Qualifiers: Aspiration pneumonia type: unspecified Laterality: right Lung location: lower lobe of lung Qualified Code(s): J69.0 - Pneumonitis due to inhalation of food and vomit (3) Factor V Leiden Current Visit: No Status: Chronic Currently anticoagulated with lovenox (4) Cerebral palsy Current Visit: Yes Status: Chronic Qualifiers: Cerebral palsy type: unspecified type Qualified Code(s): G80.9 - Cerebral palsy, unspecified (5) Hypernatremia Current Visit: Yes Status: Acute Continue with replacement of water and repeat chemistry. Electrolyte orders, per protocol (6) Electrolyte abnormality Current Visit: Yes Status: Acute Electrolyte orders, per protocol Subjective Principal diagnosis: acute respiratory failure with hypoxia Interval history: Pt's family this morning states that they would like to proceed with PEG tube placement. Yesterday, they declined placement. Patient's family to discuss with GI. Objective PUL Vital signs: Last Vital Signs Temp 99.6 F 05/12/17 08:03 Pulse 111 05/12/17 08:00 Resp 20 05/12/17 08:00 BP 130/76 05/12/17 08:00 Pulse Ox 97 05/12/17 08:00 General appearance: no acute distress Eyes: nonicteric Mallampati (class): 1 Neck: supple Effort: normal Auscultation: bilateral: clear (anterior lung booker ) Cardiovascular: regular rate and rhythm Gastrointestinal: normoactive bowel sounds Extremities: no edema (actively looking around room ) unable to assess due to mental status Results - Laboratory Findings CBC and BMP: 05/12/17 08:55 05/12/17 03:18 ABG ABG pH 7.33 pH Units (7.32-7.45) 05/10/17 08:47 ABG pCO2 71 mmHg (35-45) H* 05/10/17 08:47 ABG pO2 84 mmHg (85-104) L 05/10/17 08:47 ABG O2 Saturation 95 % (95-98) 05/10/17 08:47 PT/INR, D-dimer PT 18.2 Seconds (9.4-12.1) H 05/12/17 03:18 D-Dimer 589 ng/mLFEU (0-500) H 05/05/17 16:10 Abnormal lab findings: Abnormal lab results RBC 3.34 M/mcL (3.82-4.97) L 05/10/17 03:25 Hgb 8.7 g/dL (11.5-15.4) L 05/10/17 03:25 Hct 28.8 % (35.3-44.9) L 05/10/17 03:25 MCH 26.0 pg (28.0-33.3) L 05/10/17 03:25 MCHC 30.2 g/dL (31.6-35.5) L 05/10/17 03:25 RDW 17.2 % (11.5-14.5) H 05/10/17 03:25 Nucleated RBCs/100 WBC 0.3 /100 WBC (0) H 05/10/17 03:25 PT 18.2 Seconds (9.4-12.1) H 05/12/17 03:18 D-Dimer 589 ng/mLFEU (0-500) H 05/05/17 16:10 ABG pCO2 71 mmHg (35-45) H* 05/10/17 08:47 ABG pO2 84 mmHg (85-104) L 05/10/17 08:47 ABG HCO3 38 mEq/L (21-27) H 05/10/17 08:47 ABG Total CO2 40 mEq/L (20-26) H 05/10/17 08:47 ABG Base Excess 10 mEq/L (-2 to 3) H 05/10/17 08:47 Potassium 3.4 mEq/L (3.5-4.5) L 05/12/17 03:18 Carbon Dioxide 31 mEq/L (19-29) H 05/12/17 03:18 BUN 5 mg/dL (7-20) L 05/12/17 03:18 Glucose 109 mg/dL (70-99) H 05/12/17 03:18 POC Glucose 114 (58-89) H 05/11/17 23:43 Calcium 8.4 mg/dL (8.6-10.8) L 05/12/17 03:18 Ionized Calcium 1.13 mmol/L (1.15-1.35) L 05/12/17 03:18 Phosphorus 2.2 mg/dL (2.3-4.7) L 05/12/17 03:18 Magnesium 1.2 mg/dL (1.6-2.6) L 05/12/17 03:18 AST 54 Units/L (5-34) H 05/12/17 03:18 Serum Total Protein 5.8 g/dL (6.0-8.3) L 05/12/17 03:18 Albumin 2.7 g/dL (3.5-5.0) L 05/12/17 03:18 Albumin/Globulin Ratio 0.9 (1.1-2.2) L 05/12/17 03:18 Urine Blood Trace (Negative) H 05/09/17 09:07 - Microbiology Findings Microbiology Findings: Microbiology, Last 48 Hours 05/09/17 13:37 Sputum Culture - Final Sputum Pseudomonas aeruginosa - Diagnostic Findings Chest x-ray: pending - Clinical Findings Intake & Output: Intake & Output 05/11/17 05/12/17 05/12/17 23:59 07:59 15:59 Intake Total 1000 / 1000 359 / 359 Output Total 550 / 550 250 / 250 150 / 150 Balance -550 / -550 750 / 750 209 / 209 Weight 31.3 kg
[2017-05-12] MEDS: Artificial Tears SOLN 15 ML BOTTLE BOTH EYES SCH ×4 (09:02→19:39)
[2017-05-12] MEDS: Baclofen 10 MG TABLET PO SCH ×2 (09:02→19:42)
[2017-05-12] MEDS: Famotidine 20 MG TABLET PO SCH (09:02)
[2017-05-12] MEDS: Potassium Chloride Elixir 20 MEQ/15 ML UDC GTUBE SCH (09:03)
[2017-05-12 09:06] LABS: Eosinophils # 0.6 K/mcL (0.0-0.6); Eosinophils % 6.2 %; Hematocrit 32.3 % (35.3-44.9); Immature Granulocytes % 0.3 % (0-4); Lymphocytes # 1.4 K/mcL (0.6-4.6); Lymphocytes % 14.5 %; Mean Corpuscular Hemoglobin 26.4 pg (28.0-33.3); Mean Corpuscular Volume 85.2 fL (83.0-100.0); Mean Platelet Volume 10.9 fL (9.4-12.4); Monocytes # 0.7 K/mcL (0.0-1.3); Platelet Count 267 K/mcL (140-400); Red Blood Count 3.79 M/mcL (3.82-4.97)
[2017-05-12] MEDS: Chlorhexidine Rinse 15 ML MOUTHWASH MM SCH ×2 (09:07→19:42)
[2017-05-12 09:08] LABS: Neutrophils # 6.8 K/mcL (1.6-8.9)
[2017-05-12] MEDS: Scopolamine Patch 1.5 MG PATCH.TD72 TD SCH (09:48)
--- NOTE | 2017-05-12 09:55 | Oncology Inp Progress Note ---
Date of Encounter: 05/12/17 Time of Encounter: 09:52 (1) Pulmonary embolism Current Visit: No Status: Acute Assessment and plan: -INR remains sub therapeutic. Continue lovenox 1 mg/kg SQ BID until INR has been threrapeutic x 2 consecutive days. INR goal 2-3 - No bleeding complications. - At this time I will sign off, please call us if new questions arise. - Upon discharge, please arrange for follow up at [facility] in 1- 2 months. Qualifiers: Pulmonary embolism type: other Chronicity: acute Acute cor pulmonale presence: without acute cor pulmonale Qualified Code(s): I26.99 - Other pulmonary embolism without acute cor pulmonale (2) Abnormal CT of liver Current Visit: Yes Status: Acute Assessment and plan: CT chest showed possible enhancing liver lesion within the right hepatic lobe. I agree with completing a CT liver for further assessment. Oncology: Subj Interval history: Patient seen with family at bedside. Family thinks that looks better, now in nasal canula, no respiratory distress. - Constitutional Vitals: Vital Signs Temp Pulse Resp BP Pulse Ox 05/12/17 08:03 99.6 F 05/12/17 08:00 111 20 130/76 97 05/12/17 07:00 137 24 117/86 92 05/12/17 06:00 54 18 135/98 97 05/12/17 05:12 116 22 136/88 94 05/12/17 04:33 24 89 05/12/17 04:00 98.4 F 101 20 136/90 96 05/12/17 03:00 91 26 132/68 97 05/12/17 02:00 54 23 119/62 99 05/12/17 01:00 68 24 114/81 99 05/12/17 00:30 80 22 124/68 100 05/12/17 00:17 98.9 F 05/12/17 00:00 80 05/11/17 23:00 54 16 131/86 100 05/11/17 22:29 19 131/78 100 05/11/17 22:00 57 18 131/78 100 05/11/17 21:30 61 24 133/64 100 05/11/17 20:58 99.6 F 05/11/17 20:00 85 20 141/81 100 05/11/17 19:30 115 22 128/90 99 05/11/17 18:00 120 20 141/89 99 05/11/17 17:00 99.1 F 106 20 147/88 99 05/11/17 16:00 112 24 140/86 96 05/11/17 15:50 16 94 05/11/17 15:00 100 19 118/67 98 05/11/17 14:00 58 22 130/68 97 05/11/17 13:00 105 20 128/76 95 05/11/17 12:00 98.5 F 106 22 109/83 94 05/11/17 11:12 20 96 05/11/17 11:00 55 17 114/54 98 05/11/17 10:00 54 16 115/55 98 Intake and Output 05/11/17 05/12/17 05/12/17 23:59 07:59 15:59 Intake Total 1000 / 1000 359 / 359 Output Total 550 / 550 250 / 250 150 / 150 Balance -550 / -550 750 / 750 209 / 209 Intake: IV Fluids 1000 / 1000 359 / 359 D5% And 0.45% Nacl 1000 Ml Bag 1000 / 1000 359 / 359 1,000 ML @ 75 mls/hr IVC . [id number] [id number] Rx#:[id number] Oral 0 / 0 Output: Catheter 550 / 550 250 / 250 150 / 150 Other: Weight 31.3 kg Blood Glucose* 112 Patient Weight 05/12/17 23:59 Weight 31.3 kg - Respiratory Respiratory exam: Present: CTAB - Cardiovascular Cardiovascular exam: Present: +S1 - GI/Abdominal GI/Abdominal exam: Present: normal bowel sounds. Absent: organomegaly Oncology: Obj Data - Labs CBC & Chem 7: 05/12/17 08:55 05/12/17 03:18 Labs: Laboratory Results - last 24 hr 05/11/17 05/11/17 05/11/17 10:28 12:38 17:43 WBC RBC Hgb Hct MCV MCH MCHC RDW Plt Count MPV Immature Gran % Seg Neutrophils % Lymphocytes % Monocytes % Eosinophils % Basophils % Neutrophils # Lymphocytes # Monocytes # Eosinophils # Basophils # PT INR Sodium 147 H Potassium 3.9 Chloride 109 Carbon Dioxide 33 H BUN 10 Creatinine 0.68 Est GFR ( Amer) > 60 Est GFR (Non-Af Amer) > 60 BUN/Creatinine Ratio 15 Glucose 105 H POC Glucose 93 H 109 H Calculated Osmolality 303 H Calcium 8.8 Ionized Calcium Phosphorus Magnesium Total Bilirubin AST ALT Alkaline Phosphatase Serum Total Protein Albumin Globulin Albumin/Globulin Ratio 05/11/17 05/12/17 05/12/17 23:43 03:18 03:18 WBC RBC Hgb Hct MCV MCH MCHC RDW Plt Count MPV Immature Gran % Seg Neutrophils % Lymphocytes % Monocytes % Eosinophils % Basophils % Neutrophils # Lymphocytes # Monocytes # Eosinophils # Basophils # PT 18.2 H INR 1.7 Sodium 145 Potassium 3.4 L Chloride 109 Carbon Dioxide 31 H BUN 5 L Creatinine 0.61 Est GFR ( Amer) > 60 Est GFR (Non-Af Amer) > 60 BUN/Creatinine Ratio 8 Glucose 109 H POC Glucose 114 H Calculated Osmolality 298 Calcium 8.4 L Ionized Calcium 1.13 L Phosphorus 2.2 L Magnesium 1.2 L Total Bilirubin 0.5 AST 54 H ALT 42 Alkaline Phosphatase 55 Serum Total Protein 5.8 L Albumin 2.7 L Globulin 3.1 Albumin/Globulin Ratio 0.9 L 05/12/17 08:55 WBC 9.5 D RBC 3.79 L Hgb 10.0 L Hct 32.3 L MCV 85.2 MCH 26.4 L MCHC 31.0 L RDW 17.0 H Plt Count 267 MPV 10.9 Immature Gran % 0.3 Seg Neutrophils % 72.0 Lymphocytes % 14.5 Monocytes % 7.0 Eosinophils % 6.2 Basophils % 0.0 Neutrophils # 6.8 Lymphocytes # 1.4 Monocytes # 0.7 Eosinophils # 0.6 Basophils # 0.0 PT INR Sodium Potassium Chloride Carbon Dioxide BUN Creatinine Est GFR ( Amer) Est GFR (Non-Af Amer) BUN/Creatinine Ratio Glucose POC Glucose Calculated Osmolality Calcium Ionized Calcium Phosphorus Magnesium Total Bilirubin AST ALT Alkaline Phosphatase Serum Total Protein Albumin Globulin Albumin/Globulin Ratio - Impressions Impressions Chest X-Ray 05/12/17 08:29 IMPRESSION: No significant change in left basilar airspace opacities, though patient rotation limits evaluation. D/ / Geremias Crenshaw MD / Geremias Crenshaw MD Interpreting Provider: Geremias Crenshaw MD - ABG Interpretation ABG results: ABG ABG pH 7.33 pH Units (7.32-7.45) 05/10/17 08:47 ABG pCO2 71 mmHg (35-45) H* 05/10/17 08:47 ABG pO2 84 mmHg (85-104) L 05/10/17 08:47 ABG O2 Saturation 95 % (95-98) 05/10/17 08:47 PT/INR, D-dimer PT 18.2 Seconds (9.4-12.1) H 05/12/17 03:18 D-Dimer 589 ng/mLFEU (0-500) H 05/05/17 16:10 Consult Discharge Plan - Plan Referrals: Chandan Serrano MD [Primary Care Provider] - 05/15/17 2:15 pm
[2017-05-12] MEDS: Potassium Phosphate 44 MEQ in 0.9 % Sodium Chloride 250 ML IVPB PRN ×2 (10:00→23:52)
[2017-05-12] MEDS: Budesonide/Formoterol 80/4.5 MDI IH SCH ×2 (10:54→22:30)
[2017-05-12] MEDS: Albuterol 2.5 MG/3 ML NEBULIZER IH PRN (11:32)
[2017-05-12] MEDS: FentaNYL (PF) 1,000 MCG in 0.9 % Sodium Chloride 80 ML IVC SCH (19:38)
[2017-05-12 20:58] LABS: Magnesium 1.9 mg/dL (1.6-2.6); Phosphorous 2.8 mg/dL (2.3-4.7); Potassium 3.7 mEq/L (3.5-4.5)
[2017-05-13 04:55] LABS: Basophils % 0.1 %; Eosinophils # 0.9 K/mcL (0.0-0.6); Eosinophils % 12.9 %; Hemoglobin 9.4 g/dL (11.5-15.4); INR 1.7; Immature Granulocytes % 0.3 % (0-4); Lymphocytes # 1.5 K/mcL (0.6-4.6); Lymphocytes % 22.3 %; Mean Corpuscular HGB Conc 30.3 g/dL (31.6-35.5); Mean Corpuscular Hemoglobin 25.8 pg (28.0-33.3); Mean Corpuscular Volume 84.9 fL (83.0-100.0); Monocytes # 0.6 K/mcL (0.0-1.3); Monocytes % 9.2 %; Neutrophils # 3.8 K/mcL (1.6-8.9); Platelet Count 268 K/mcL (140-400); Red Blood Count 3.65 M/mcL (3.82-4.97); Red Cell Distribution Width 17.2 % (11.5-14.5); Segmented Neutrophils % 55.2 %
[2017-05-13] MEDS: Levalbuterol Neb 0.63 MG/3 ML IH SCH ×4 (05:12→21:11)
[2017-05-13] MEDS: *HR* Enoxaparin 30 MG/0.3 ML SYRINGE SQ SCH ×3 (05:24→19:24)
[2017-05-13] MEDS: Potassium Chloride Elixir 20 MEQ/15 ML UDC GTUBE SCH (09:13)
[2017-05-13] MEDS: Baclofen 10 MG TABLET PO SCH ×2 (09:13→19:46)
[2017-05-13] MEDS: Famotidine 20 MG TABLET PO SCH (09:13)
[2017-05-13] MEDS: Chlorhexidine Rinse 15 ML MOUTHWASH MM SCH ×2 (09:14→20:04)
[2017-05-13] MEDS: Artificial Tears SOLN 15 ML BOTTLE BOTH EYES SCH ×4 (09:15→20:05)
[2017-05-13] MEDS: D5% in 0.45% NACL 1,000 ML IVC SCH ×2 (09:23→19:48)
[2017-05-13] MEDS: Budesonide/Formoterol 80/4.5 MDI IH SCH ×3 (11:05→21:11)
[2017-05-13 11:16] LABS: Phosphorous 3.3 mg/dL (2.3-4.7)
[2017-05-13 11:17] LABS: BUN/Creatinine Ratio 5 (6-26); Calcium 8.5 mg/dL (8.6-10.8); Carbon Dioxide 23 mEq/L (19-29); Chloride 113 mEq/L (98-109); Glucose 118 mg/dL (70-99); Osmolality,Calculated 294 (280-300); Potassium 4.2 mEq/L (3.5-4.5); Sodium 143 mEq/L (136-145); eGFR For African Americans > 60 (> 60); eGFR For Non-African Americans > 60 (> 60)
[2017-05-13 11:18] LABS: Blood Urea Nitrogen 3 mg/dL (7-20)
[2017-05-13 11:31] LABS: Ionized Calcium 1.19 mmol/L (1.15-1.35)
--- NOTE | 2017-05-13 12:22 | Pulmonology Progress Note ---
<Janusz,Dotty - Last Filed: 05/13/17 17:52> Date of Encounter: 05/13/17 Time of Encounter: 08:00 Assessment and Plan (1) Acute respiratory failure with hypoxia Current Visit: Yes Status: Resolved -breathing comfortably; SpO2 99% on 4L NC, which is her home dose of oxygen -will continue to monitor respiratory status (2) Bilateral pulmonary embolism Current Visit: Yes Status: Acute -possible contributor to patient's initial presentation of acute respiratory failure with hypoxia -h/o Factor V Leiden -INR today 1.7 -last dose of warfarin was 05/09 -lovenox held for morning, will get evening dose (3) Aspiration pneumonia Current Visit: Yes Status: Acute -Doing well clinically -Scopolomine patch working well to decrease secretions. Continue pulmonary toilet. -Family wants PEG tube placement. -GI will re-evaluate tomorrow AM -Cultures Pseudomonas positive; therefore, low threshold to begin cefepime. 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 Current Visit: Yes Status: Acute -Last dose desmopressin given 05/10 -Currently NPO (5) Factor V Leiden Current Visit: Yes Status: Chronic -PT: 18, INR: 1.7 -currently anticoagulated with lovenox -coumadin on hold for possible PEG placement (GI to reassess tomorrow morning) (6) DVT prophylaxis Current Visit: Yes Status: Acute -lovenox held this AM, will get evening dose -coumadin being held in anticipation of PEG placement (GI to reassess tomorrow morning) Subjective Principal diagnosis: acute respiratory failure with hypoxia Interval history: Patient seen and examined at bedside this morning, family is present in the room. Patient alert, appears comfortable with 4L oxygen via NC. Family has no concerns at this time and express interest in PEG tube placement. Objective PUL Vital signs: Last Vital Signs Temp 98.8 F 05/13/17 11:37 Pulse 55 05/13/17 12:00 Resp 13 05/13/17 12:00 BP 130/62 05/13/17 12:00 Pulse Ox 100 05/13/17 12:00 General appearance: no acute distress, alert Eyes: nonicteric Effort: normal Auscultation: bilateral: rhonchi Cardiovascular: regular rate and rhythm Gastrointestinal: absent bowel sounds, soft, non-tender, non-distended Integumentary: normal Extremities: no cyanosis, no edema, no clubbing, pink and warm, pulses normal unable to assess due to mental status Results - Laboratory Findings CBC and BMP: 05/13/17 04:38 05/13/17 10:52 ABG ABG pH 7.33 pH Units (7.32-7.45) 05/10/17 08:47 ABG pCO2 71 mmHg (35-45) H* 05/10/17 08:47 ABG pO2 84 mmHg (85-104) L 05/10/17 08:47 ABG O2 Saturation 95 % (95-98) 05/10/17 08:47 PT/INR, D-dimer PT 18.0 Seconds (9.4-12.1) H 05/13/17 04:38 D-Dimer 589 ng/mLFEU (0-500) H 05/05/17 16:10 Abnormal lab findings: Abnormal lab results RBC 3.65 M/mcL (3.82-4.97) L 05/13/17 04:38 Hgb 9.4 g/dL (11.5-15.4) L 05/13/17 04:38 Hct 31.0 % (35.3-44.9) L 05/13/17 04:38 MCH 25.8 pg (28.0-33.3) L 05/13/17 04:38 MCHC 30.3 g/dL (31.6-35.5) L 05/13/17 04:38 RDW 17.2 % (11.5-14.5) H 05/13/17 04:38 Eosinophils # 0.9 K/mcL (0.0-0.6) H 05/13/17 04:38 Nucleated RBCs/100 WBC 0.3 /100 WBC (0) H 05/10/17 03:25 PT 18.0 Seconds (9.4-12.1) H 05/13/17 04:38 D-Dimer 589 ng/mLFEU (0-500) H 05/05/17 16:10 ABG pCO2 71 mmHg (35-45) H* 05/10/17 08:47 ABG pO2 84 mmHg (85-104) L 05/10/17 08:47 ABG HCO3 38 mEq/L (21-27) H 05/10/17 08:47 ABG Total CO2 40 mEq/L (20-26) H 05/10/17 08:47 ABG Base Excess 10 mEq/L (-2 to 3) H 05/10/17 08:47 Chloride 113 mEq/L (98-109) H 05/13/17 10:52 BUN 3 mg/dL (7-20) L 05/13/17 10:52 BUN/Creatinine Ratio 5 (6-26) L 05/13/17 10:52 Glucose 118 mg/dL (70-99) H 05/13/17 10:52 POC Glucose 104 (58-89) H 05/13/17 00:23 Calcium 8.5 mg/dL (8.6-10.8) L 05/13/17 10:52 AST 54 Units/L (5-34) H 05/12/17 03:18 Serum Total Protein 5.8 g/dL (6.0-8.3) L 05/12/17 03:18 Albumin 2.7 g/dL (3.5-5.0) L 05/12/17 03:18 Albumin/Globulin Ratio 0.9 (1.1-2.2) L 05/12/17 03:18 Urine Blood Trace (Negative) H 05/09/17 09:07 - Clinical Findings Intake & Output: Intake & Output 05/12/17 05/13/17 05/13/17 23:59 07:59 15:59 Intake Total 723 / 723 1260 / 1260 Output Total 400 / 400 600 / 600 225 / 225 Balance 323 / 323 660 / 660 -225 / -225 Weight 32.2 kg Consult Discharge Plan - Plan Referrals: Chandan Serrano MD [Primary Care Provider] - 05/15/17 2:15 pm <Domenica Meadows - Last Filed: 05/13/17 21:51> Date of Encounter: 05/13/17 Objective PUL Vital signs: Last Vital Signs Temp 98.9 F 05/13/17 15:46 Pulse 91 05/13/17 17:00 Resp 20 05/13/17 17:00 BP 132/90 05/13/17 17:00 Pulse Ox 95 05/13/17 17:00 Results - Laboratory Findings CBC and BMP: 05/13/17 04:38 05/13/17 10:52 ABG ABG pH 7.33 pH Units (7.32-7.45) 05/10/17 08:47 ABG pCO2 71 mmHg (35-45) H* 05/10/17 08:47 ABG pO2 84 mmHg (85-104) L 05/10/17 08:47 ABG O2 Saturation 95 % (95-98) 05/10/17 08:47 PT/INR, D-dimer PT 18.0 Seconds (9.4-12.1) H 05/13/17 04:38 D-Dimer 589 ng/mLFEU (0-500) H 05/05/17 16:10 Abnormal lab findings: Abnormal lab results RBC 3.65 M/mcL (3.82-4.97) L 05/13/17 04:38 Hgb 9.4 g/dL (11.5-15.4) L 05/13/17 04:38 Hct 31.0 % (35.3-44.9) L 05/13/17 04:38 MCH 25.8 pg (28.0-33.3) L 05/13/17 04:38 MCHC 30.3 g/dL (31.6-35.5) L 05/13/17 04:38 RDW 17.2 % (11.5-14.5) H 05/13/17 04:38 Eosinophils # 0.9 K/mcL (0.0-0.6) H 05/13/17 04:38 Nucleated RBCs/100 WBC 0.3 /100 WBC (0) H 05/10/17 03:25 PT 18.0 Seconds (9.4-12.1) H 05/13/17 04:38 D-Dimer 589 ng/mLFEU (0-500) H 05/05/17 16:10 ABG pCO2 71 mmHg (35-45) H* 05/10/17 08:47 ABG pO2 84 mmHg (85-104) L 05/10/17 08:47 ABG HCO3 38 mEq/L (21-27) H 05/10/17 08:47 ABG Total CO2 40 mEq/L (20-26) H 05/10/17 08:47 ABG Base Excess 10 mEq/L (-2 to 3) H 05/10/17 08:47 Chloride 113 mEq/L (98-109) H 05/13/17 10:52 BUN 3 mg/dL (7-20) L 05/13/17 10:52 BUN/Creatinine Ratio 5 (6-26) L 05/13/17 10:52 Glucose 118 mg/dL (70-99) H 05/13/17 10:52 POC Glucose 104 (58-89) H 05/13/17 00:23 Calcium 8.5 mg/dL (8.6-10.8) L 05/13/17 10:52 AST 54 Units/L (5-34) H 05/12/17 03:18 Serum Total Protein 5.8 g/dL (6.0-8.3) L 05/12/17 03:18 Albumin 2.7 g/dL (3.5-5.0) L 05/12/17 03:18 Albumin/Globulin Ratio 0.9 (1.1-2.2) L 05/12/17 03:18 Urine Blood Trace (Negative) H 05/09/17 09:07 - Clinical Findings Intake & Output: Intake & Output 05/13/17 05/13/17 05/13/17 07:59 15:59 23:59 Intake Total 1260 / 1260 Output Total 600 / 600 375 / 375 Balance 660 / 660 -375 / -375 Weight 32.2 kg - Attending Attestation I saw the patient with the resident agree with History and Physical exam findings. 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 PE will give tonight Lovenox and then hold it in the morning for PEG tube Cardiac : Hemodynamically stable Nutrition/GI: Because of recurrent aspiration GI was consulted PEG tube placement , family is Ok with that.INR is elevated GI might do the procedure tomorrow . Renal : Labs reviewed Heme onc : No acute issues ID : No fever or leukocytosis Musculo skeletal / skin issues Disposition : Critical Code status: Full Code Family/POA: Mother and Father
--- NOTE | 2017-05-13 13:07 | Palliative - Consult Note ---
Date of Encounter: 05/13/17 Time of Encounter: 11:10 - Assessment and Plan (1) Dyspnea and respiratory abnormalities Current Visit: Yes Status: Acute Assessment and plan: Patient appears to be improving with treatment for pulmonary embolus and aspiration. Continues with antibiotic therapy, oxygen, aerosols. Monitor (2) Dysphagia, pharyngeal Current Visit: Yes Status: Acute Assessment and plan: Previous diet at home consisted of pureed foods with honey-thick liquids. With swallowing evaluation this hospitalization, she was aspirating all textures. Family has decided to proceed with PEG placement, which will take place in the next 24-48 hours based on her INR. (3) Aspiration pneumonia Current Visit: Yes Status: Acute Assessment and plan: Improving with treatment Qualifiers: Aspiration pneumonia type: unspecified Laterality: right Lung location: lower lobe of lung Qualified Code(s): J69.0 - Pneumonitis due to inhalation of food and vomit (4) Goals of care, counseling/discussion Current Visit: Yes Status: Acute Assessment and plan: Long discussion with mother, Shankar, and father, Jarrell re: goals of care. Patient 's parents care for her around the clock, but through [facility], she is still able to go to [facility] daily. They have all needed medical equipment at home, and Father is [employer] through [employer] in [place]. They are very dedicated to their mormon and their kumar is extremely important to them. We discussed decisions they may need to make in the future including code status, re-intubation, fci vent support, and possible recurring of aspiration. We discussed that aspiration can still occur regardless of PEG. Discussed differences in code status, and discussed comfort care at length. Gave them some printed materials regarding goals of care, end of life planning, and DNR status for references. Parents are very adamant on taking her home when stable for discharge and continuing being her caregivers. They feel she is "starting to act like herself again" and admitted last week was "touch and go", but they feel she is improving daily and will be able to come home soon. (5) Bilateral pulmonary embolism Current Visit: Yes Status: Acute (6) Cerebral palsy Current Visit: Yes Status: Chronic Qualifiers: Cerebral palsy type: unspecified type Qualified Code(s): G80.9 - Cerebral palsy, unspecified Palliative-CN HPI - Data of Consult Consult date: 05/13/17 Requesting Physician: Miles Israel MD Primary Care Provider: Chandan Serrano MD - Consult Narrative History of present illness: Ms. Cousins is a 42 year old female with a PMH of GERD cerebral palsy, diabetes insipidus, factor 5 leiden, DVT, and PE. She presented to ED today with a 5 day h/o increasing SOB and wheezing. . Family reports that approximately five days prior to admission she began wheezing and requiring more oxygen. She has home oxygen and suction already in place. . She was found to have a positive D-dimer of 589, CTA chest reveal multiple pulmonary emboli. She was admitted and started on blood thinners, however, developed increasing resp distress and hypoxia, and was intubated. Since that time, she has successfully been liberated from the ventilator. She has failed swallowing evaluation and family has decided to proceed with PEG for feedings. They have expressed some questions regarding watermaster goals of care and what those types of interventions may be, - palliative care was consulted to assist with goals of care discussion. CC: Miles Israel MD Past Med Surg Social Fam HX - Past Medical History Medical history: diabetes, GERD, other Psychiatric history: no psych history - Social History Smoking Status: Never smoker Smokeless Tobacco Status: No Alcohol use: none Drug use: none - Family History Mother Adopted: No Living Status: Still Living Hx Family Cardiac Disorders: Yes (HTN) Hx Family Endocrine Disorder: Yes (T2DM) Medications and Allergies Albuterol Neb [Proventil Neb] 2.5 mg IH TID 02/13/16 [History] Baclofen [Lioresal] 10 mg PO BID 02/13/16 [History] Ranitidine HCl [Heartburn Relief] 150 mg PO DAILY 02/13/16 [History] Simvastatin [Zocor] 20 mg PO DAILY 02/13/16 [History] Polyethylene Glycol 3350 [MiraLAX] 17 gm PO DAILY PRN 03/12/16 [History] Acetaminophen [Tylenol] 650 mg PO Q6HR PRN 06/15/16 [History] Desmopressin Acetate [Ddavp] 0.4 mg PO TID 30 Days tablet 06/21/16 [Rx] Nutritional Supplement [Ensure] 113 gm PO TIDWM 30 Days container 06/21/16 [Rx] 3 Allergy/AdvReac Type Severity Reaction Status Date / Time No Known Allergies Allergy Verified 05/05/17 16:09 ROS unobtainable: due to mental status Palliative Care-Exam - Constitutional Vitals: Temp Pulse Resp BP Pulse Ox 98.8 F 55 13 130/62 100 05/13/17 11:37 05/13/17 12:00 05/13/17 12:00 05/13/17 12:00 05/13/17 12:00 Internal Medicine - CN: Reslt - Labs CBC & Chem 7: 05/13/17 04:38 05/13/17 10:52 Labs: Short CBC 05/13/17 Range/Units 04:38 WBC 6.9 (4.3-11.1) K/mcL Hgb 9.4 L (11.5-15.4) g/dL Hct 31.0 L (35.3-44.9) % Plt Count 268 (140-400) K/mcL Neutrophils # 3.8 (1.6-8.9) K/mcL BMP 05/12/17 05/13/17 20:39 10:52 Sodium 143 Potassium 3.7 4.2 Chloride 113 H Carbon Dioxide 23 BUN 3 L Creatinine 0.64 Glucose 118 H Calcium 8.5 L - ABG Interpretation ABG results: ABG ABG pH 7.33 pH Units (7.32-7.45) 05/10/17 08:47 ABG pCO2 71 mmHg (35-45) H* 05/10/17 08:47 ABG pO2 84 mmHg (85-104) L 05/10/17 08:47 ABG O2 Saturation 95 % (95-98) 05/10/17 08:47 PT/INR, D-dimer PT 18.0 Seconds (9.4-12.1) H 05/13/17 04:38 D-Dimer 589 ng/mLFEU (0-500) H 05/05/17 16:10 Consult Discharge Plan - Plan Referrals: Chandan Serrano MD [Primary Care Provider] - 05/15/17 2:15 pm Palliative Quality Palliative Quality: Screen for Code Status: Yes, Screen for Goals of Care: Yes, Screen for Pain: Yes, If Pain Regimen Started, Initiate Bowel Regimen: Yes, Screen for Nausea/Vomitting: Yes
[2017-05-13] MEDS: FentaNYL (PF) 1,000 MCG in 0.9 % Sodium Chloride 80 ML IVC SCH (19:46)
[2017-05-14 03:30] LABS: Basophils % 0.2 %; Eosinophils # 0.5 K/mcL (0.0-0.6); Eosinophils % 7.7 %; Hematocrit 31.8 % (35.3-44.9); Hemoglobin 9.9 g/dL (11.5-15.4); Immature Granulocytes % 0.2 % (0-4); Lymphocytes # 1.8 K/mcL (0.6-4.6); Lymphocytes % 28.2 %; Mean Corpuscular HGB Conc 31.1 g/dL (31.6-35.5); Mean Corpuscular Hemoglobin 26.3 pg (28.0-33.3); Mean Corpuscular Volume 84.4 fL (83.0-100.0); Monocytes # 0.8 K/mcL (0.0-1.3); Monocytes % 12.1 %; Neutrophils # 3.3 K/mcL (1.6-8.9); Platelet Count 296 K/mcL (140-400); Red Blood Count 3.77 M/mcL (3.82-4.97); Red Cell Distribution Width 17.2 % (11.5-14.5); Segmented Neutrophils % 51.6 %
[2017-05-14 03:39] LABS: INR 1.8; Prothrombin Time 19.3 Seconds (9.4-12.1)
[2017-05-14 03:43] LABS: BUN/Creatinine Ratio 6 (6-26); Calcium 8.8 mg/dL (8.6-10.8); Carbon Dioxide 23 mEq/L (19-29); Chloride 112 mEq/L (98-109); Glucose 96 mg/dL (70-99); Osmolality,Calculated 293 (280-300); Potassium 3.9 mEq/L (3.5-4.5); Sodium 143 mEq/L (136-145); eGFR For African Americans > 60 (> 60); eGFR For Non-African Americans > 60 (> 60)
[2017-05-14 03:52] LABS: Blood Urea Nitrogen 4 mg/dL (7-20)
[2017-05-14] MEDS: Levalbuterol Neb 0.63 MG/3 ML IH SCH ×4 (03:53→21:52)
[2017-05-14] MEDS: *HR* Enoxaparin 30 MG/0.3 ML SYRINGE SQ SCH ×2 (04:24→17:02)
[2017-05-14] MEDS: D5% in 0.45% NACL 1,000 ML IVC SCH (05:07)
[2017-05-14 06:59] LABS: Alanine Aminotransferase 31 Units/L (0-55); Albumin 2.9 g/dL (3.5-5.0); Albumin/Globulin Ratio 0.9 (1.1-2.2); Alkaline Phosphatase 55 Units/L (38-126); Aspartate Amino Transferase 23 Units/L (5-34); Bilirubin,Direct 0.2 mg/dL (0.0-0.5); Bilirubin,Indirect 0.2 mg/dL (0.0-1.2); Bilirubin,Total 0.4 mg/dL (0.2-1.2); Globulin 3.4 g/dL (2.4-3.5); Total Protein 6.3 g/dL (6.0-8.3)
[2017-05-14] MEDS: Potassium Chloride Elixir 20 MEQ/15 ML UDC GTUBE SCH (08:55)
[2017-05-14] MEDS: Baclofen 10 MG TABLET PO SCH ×2 (08:56→19:53)
[2017-05-14] MEDS: Famotidine 20 MG TABLET PO SCH (08:56)
[2017-05-14] MEDS: Budesonide/Formoterol 80/4.5 MDI IH SCH ×2 (09:40→21:52)
--- NOTE | 2017-05-14 09:50 | Event Note ---
Date of Encounter: 05/14/17 Time of Encounter: 09:30 Patient awake and alert, mother at bedside. INR 1.8 today - no PEG scheduled. Mother still on board with PEG placement. I did follow up for goals of care discussion, and answered a few questions for her. No other issues arose - palliative will sign off. Please call if needed.
--- NOTE | 2017-05-14 09:51 | Pulmonology Progress Note ---
<Dotty Boudreaux - Last Filed: 05/14/17 16:54> Date of Encounter: 05/14/17 Time of Encounter: 08:00 Assessment and Plan (1) Acute respiratory failure with hypoxia Current Visit: Yes Status: Resolved -patient continues to do well -saturating 97% on room air -will continue to monitor respiratory status (2) Bilateral pulmonary embolism Current Visit: Yes Status: Acute -possible contributor to patient's initial presentation of acute respiratory failure with hypoxia -h/o Factor V Leiden -INR of 1.8 today, last dose of warfarin was 05/09 -lovenox AM dose was held in anticipation of PEG; will get lovenox PM dose (3) Aspiration pneumonia Current Visit: Yes Status: Acute -Doing well clinically, no abx at this point -Scopolomine patch working well to decrease secretions. Continue pulmonary toilet. -Family wants PEG tube placement -GI not comfortable placing PEG at this time d/t INR 1.8 -Cultures Pseudomonas positive; therefore, low threshold to begin cefepime. 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 Current Visit: Yes Status: Acute -last dose desmopressin given 05/10, currently NPO -sodium 143 today (5) Factor V Leiden Current Visit: Yes Status: Chronic -INR: 1.8 -coumadin continues to be held in anticipation of PEG tube placement -lovenox AM dose was held in anticipation of PEG; will get lovenox PM dose (6) DVT prophylaxis Current Visit: Yes Status: Acute -coumadin continues to be held in anticipation of PEG placement -will receive PM lovenox dose Subjective Principal diagnosis: acute respiratory failure with hypoxia Interval history: Patient seen and examined at bedside this morning, family is present in the room. Patient alert, appears comfortable breathing on room air, not in respiratory distress. Family hoping to have PEG placed today. Objective PUL Vital signs: Last Vital Signs Temp 98.2 F 05/14/17 07:16 Pulse 68 05/14/17 09:00 Resp 17 05/14/17 09:00 BP 129/79 05/14/17 09:00 Pulse Ox 98 05/14/17 09:00 General appearance: no acute distress, alert Effort: normal Auscultation: bilateral: clear (anteriorly) Cardiovascular: regular rate and rhythm Gastrointestinal: soft, non-tender, non-distended, other (BS present) Integumentary: normal Extremities: no cyanosis, pink and warm, pulses normal other (mental status at baseline, h/o cerebral palsy) Results - Laboratory Findings CBC and BMP: 05/14/17 03:09 05/14/17 11:01 ABG ABG pH 7.33 pH Units (7.32-7.45) 05/10/17 08:47 ABG pCO2 71 mmHg (35-45) H* 05/10/17 08:47 ABG pO2 84 mmHg (85-104) L 05/10/17 08:47 ABG O2 Saturation 95 % (95-98) 05/10/17 08:47 PT/INR, D-dimer PT 19.3 Seconds (9.4-12.1) H 05/14/17 03:09 D-Dimer 589 ng/mLFEU (0-500) H 05/05/17 16:10 Abnormal lab findings: Abnormal lab results RBC 3.77 M/mcL (3.82-4.97) L 05/14/17 03:09 Hgb 9.9 g/dL (11.5-15.4) L 05/14/17 03:09 Hct 31.8 % (35.3-44.9) L 05/14/17 03:09 MCH 26.3 pg (28.0-33.3) L 05/14/17 03:09 MCHC 31.1 g/dL (31.6-35.5) L 05/14/17 03:09 RDW 17.2 % (11.5-14.5) H 05/14/17 03:09 Nucleated RBCs/100 WBC 0.3 /100 WBC (0) H 05/10/17 03:25 PT 19.3 Seconds (9.4-12.1) H 05/14/17 03:09 D-Dimer 589 ng/mLFEU (0-500) H 05/05/17 16:10 ABG pCO2 71 mmHg (35-45) H* 05/10/17 08:47 ABG pO2 84 mmHg (85-104) L 05/10/17 08:47 ABG HCO3 38 mEq/L (21-27) H 05/10/17 08:47 ABG Total CO2 40 mEq/L (20-26) H 05/10/17 08:47 ABG Base Excess 10 mEq/L (-2 to 3) H 05/10/17 08:47 Chloride 112 mEq/L (98-109) H 05/14/17 03:09 BUN 4 mg/dL (7-20) L 05/14/17 03:09 Albumin 2.9 g/dL (3.5-5.0) L 05/14/17 03:09 Albumin/Globulin Ratio 0.9 (1.1-2.2) L 05/14/17 03:09 Urine Blood Trace (Negative) H 05/09/17 09:07 - Clinical Findings Intake & Output: Intake & Output 05/13/17 05/14/17 05/14/17 23:59 07:59 15:59 Intake Total 1000 / 1000 0 / 0 Output Total 75 / 75 275 / 275 Balance 925 / 925 -275 / -275 Weight 33.6 kg Consult Discharge Plan - Plan Referrals: Chandan Serrano MD [Primary Care Provider] - 05/15/17 2:15 pm <Domenica Meadows S - Last Filed: 05/14/17 23:25> Date of Encounter: 05/14/17 Objective PUL Vital signs: Last Vital Signs Temp 100.7 F H 05/14/17 20:28 Pulse 119 05/14/17 23:01 Resp 19 05/14/17 23:01 BP 128/73 05/14/17 23:01 Pulse Ox 99 05/14/17 23:01 Results - Laboratory Findings CBC and BMP: 05/14/17 03:09 05/14/17 11:01 ABG ABG pH 7.33 pH Units (7.32-7.45) 05/10/17 08:47 ABG pCO2 71 mmHg (35-45) H* 05/10/17 08:47 ABG pO2 84 mmHg (85-104) L 05/10/17 08:47 ABG O2 Saturation 95 % (95-98) 05/10/17 08:47 PT/INR, D-dimer PT 19.3 Seconds (9.4-12.1) H 05/14/17 03:09 D-Dimer 589 ng/mLFEU (0-500) H 05/05/17 16:10 Abnormal lab findings: Abnormal lab results RBC 3.77 M/mcL (3.82-4.97) L 05/14/17 03:09 Hgb 9.9 g/dL (11.5-15.4) L 05/14/17 03:09 Hct 31.8 % (35.3-44.9) L 05/14/17 03:09 MCH 26.3 pg (28.0-33.3) L 05/14/17 03:09 MCHC 31.1 g/dL (31.6-35.5) L 05/14/17 03:09 RDW 17.2 % (11.5-14.5) H 05/14/17 03:09 Nucleated RBCs/100 WBC 0.3 /100 WBC (0) H 05/10/17 03:25 PT 19.3 Seconds (9.4-12.1) H 05/14/17 03:09 D-Dimer 589 ng/mLFEU (0-500) H 05/05/17 16:10 ABG pCO2 71 mmHg (35-45) H* 05/10/17 08:47 ABG pO2 84 mmHg (85-104) L 05/10/17 08:47 ABG HCO3 38 mEq/L (21-27) H 05/10/17 08:47 ABG Total CO2 40 mEq/L (20-26) H 05/10/17 08:47 ABG Base Excess 10 mEq/L (-2 to 3) H 05/10/17 08:47 Potassium 4.6 mEq/L (3.5-4.5) H 05/14/17 11:01 Chloride 112 mEq/L (98-109) H 05/14/17 03:09 BUN 4 mg/dL (7-20) L 05/14/17 03:09 Phosphorus 2.1 mg/dL (2.3-4.7) L 05/14/17 11:01 Albumin 2.9 g/dL (3.5-5.0) L 05/14/17 03:09 Albumin/Globulin Ratio 0.9 (1.1-2.2) L 05/14/17 03:09 Urine Blood Trace (Negative) H 05/09/17 09:07 - Clinical Findings Intake & Output: Intake & Output 05/14/17 05/14/17 05/14/17 07:59 15:59 23:59 Intake Total 0 / 0 333 / 333 310 / 310 Output Total 275 / 275 325 / 325 225 / 225 Balance -275 / -275 85 / 85 - Attending Attestation I saw the patient with the resident agree with History and Physical exam findings. 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 PE will give tonight Lovenox and then hold it in the morning for PEG tube Cardiac : Hemodynamically stable Nutrition/GI: Because of recurrent aspiration GI was consulted PEG tube placement , family is Ok . Spoke with Dr Villanueva patient is on the schedule tomorrow Renal : Labs reviewed Heme onc : No acute issues ID : No fever or leukocytosis Musculo skeletal / skin issues Disposition : Critical Code status: Full Code Family/POA: Mother and Father
[2017-05-14 11:19] LABS: Magnesium 1.6 mg/dL (1.6-2.6); Potassium 4.6 mEq/L (3.5-4.5)
[2017-05-14] MEDS: D5% in Water 1,000 ML IVC SCH (11:42)
[2017-05-14 11:44] LABS: Ionized Calcium 1.18 mmol/L (1.15-1.35)
[2017-05-14 12:45] LABS: Phosphorous 2.1 mg/dL (2.3-4.7)
[2017-05-14] MEDS ORDERED: Sodium Phosphate 30 MMOL in D5% in Water 100 ML IVPB ONE (12:52)
[2017-05-14] MEDS: *HR* Morphine 2 MG/ML SYRINGE IVP PRN (22:13)
[2017-05-15] MEDS: *HR* Enoxaparin 30 MG/0.3 ML SYRINGE SQ SCH ×3 (00:54→18:22)
[2017-05-15] MEDS: *HR* Morphine 2 MG/ML SYRINGE IVP PRN (01:16)
[2017-05-15] MEDS: D5% in Water 1,000 ML IVC SCH ×2 (03:14→18:22)
[2017-05-15 03:30] LABS: BUN/Creatinine Ratio 7 (6-26); Calcium 9.1 mg/dL (8.6-10.8); Carbon Dioxide 23 mEq/L (19-29); Chloride 107 mEq/L (98-109); Glucose 98 mg/dL (70-99); Magnesium 2.1 mg/dL (1.6-2.6); Osmolality,Calculated 285 (280-300); Sodium 139 mEq/L (136-145); eGFR For African Americans > 60 (> 60); eGFR For Non-African Americans > 60 (> 60)
[2017-05-15 03:31] LABS: Blood Urea Nitrogen 5 mg/dL (7-20); Phosphorous 3.6 mg/dL (2.3-4.7)
[2017-05-15 03:55] LABS: Eosinophils % 1.5 %; Hematocrit 32.1 % (35.3-44.9); Hemoglobin 10.3 g/dL (11.5-15.4); Immature Granulocytes % 0.1 % (0-4); Immature Platelets 6.5 % (1.1-6.1); Lymphocytes % 26.7 %; Mean Corpuscular HGB Conc 32.1 g/dL (31.6-35.5); Mean Corpuscular Hemoglobin 26.3 pg (28.0-33.3); Mean Corpuscular Volume 82.1 fL (83.0-100.0); Mean Platelet Volume 11.2 fL (9.4-12.4); Monocytes % 14.3 %; Platelet Count 318 K/mcL (140-400); Red Blood Count 3.91 M/mcL (3.82-4.97); Red Cell Distribution Width 17.2 % (11.5-14.5); Segmented Neutrophils % 57.2 %
[2017-05-15 03:56] LABS: Basophils % 0.2 %; Eosinophils # 0.1 K/mcL (0.0-0.6); Lymphocytes # 2.2 K/mcL (0.6-4.6); Monocytes # 1.2 K/mcL (0.0-1.3); Neutrophils # 4.6 K/mcL (1.6-8.9)
[2017-05-15] MEDS: Levalbuterol Neb 0.63 MG/3 ML IH SCH ×4 (04:34→21:07)
[2017-05-15] MEDS ORDERED: Famotidine 20 MG/2 ML VIAL IVP SCH (08:00)
[2017-05-15 08:08] LABS: INR 1.8; Prothrombin Time 19.7 Seconds (9.4-12.1)
--- NOTE | 2017-05-15 08:27 | Pulmonology Progress Note ---
Addendum entered and electronically signed by Dotty Boudreaux DO 05/15/17 16: 33: A/P 7) Moderate Non-Severe Protein Calorie Malnutrition -Related to cerebral palsy as evidenced by: BMI 16, muscle wasting, depletion of fat stores in arms and face -Pt is on nutritional supplements and scheduled to have PEG placed tomorrow Original Note: <Dotty Boudreaux - Last Filed: 05/15/17 11:34> Date of Encounter: 05/15/17 Time of Encounter: 08:19 Assessment and Plan (1) Acute respiratory failure with hypoxia Current Visit: Yes Status: Resolved -patient continues to do well on room air, SpO2 100% -will continue to monitor respiratory status (2) Bilateral pulmonary embolism Current Visit: Yes Status: Acute -possible contributor to patient's initial presentation of acute respiratory failure with hypoxia -h/o Factor V Leiden -INR of 1.8 today, last dose of warfarin was 05/09 -will receive both doses Lovenox today -patient is on the schedule for 05/16/17 PEG placement (3) Aspiration pneumonia Current Visit: Yes Status: Acute -Tmax 100.7 overnight -Doing well clinically, no abx at this point -Cultures Pseudomonas positive; therefore, low threshold to begin cefepime -Patient is on schedule for 05/16/17 to have PEG placed 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 Overnight, patient had transient temperature spike to 100.7, but normal on next temp check. Patient is alert, no respiratory distress, on room air. Patient's mother notes patient's abdomen appears to be distended; patient has been acting normally since last night. Objective PUL Vital signs: Last Vital Signs Temp 99.7 F H 05/15/17 04:00 Pulse 112 05/15/17 07:25 Resp 26 05/15/17 07:25 BP 123/80 05/15/17 07:25 Pulse Ox 97 05/15/17 07:25 General appearance: no acute distress, alert Eyes: nonicteric Effort: normal Auscultation: bilateral: clear Cardiovascular: regular rate and rhythm Gastrointestinal: other (BS present, sluggish) Integumentary: normal Extremities: no cyanosis, no edema, pink and warm, pulses normal other (mental status at baseline) Results - Laboratory Findings CBC and BMP: 05/15/17 03:11 05/15/17 03:11 ABG ABG pH 7.33 pH Units (7.32-7.45) 05/10/17 08:47 ABG pCO2 71 mmHg (35-45) H* 05/10/17 08:47 ABG pO2 84 mmHg (85-104) L 05/10/17 08:47 ABG O2 Saturation 95 % (95-98) 05/10/17 08:47 PT/INR, D-dimer PT 19.7 Seconds (9.4-12.1) H 05/15/17 07:20 D-Dimer 589 ng/mLFEU (0-500) H 05/05/17 16:10 Abnormal lab findings: Abnormal lab results Hgb 10.3 g/dL (11.5-15.4) L 05/15/17 03:11 Hct 32.1 % (35.3-44.9) L 05/15/17 03:11 MCV 82.1 fL (83.0-100.0) L 05/15/17 03:11 MCH 26.3 pg (28.0-33.3) L 05/15/17 03:11 RDW 17.2 % (11.5-14.5) H 05/15/17 03:11 Nucleated RBCs/100 WBC 0.3 /100 WBC (0) H 05/10/17 03:25 Immature Plt Fraction 6.5 % (1.1-6.1) H 05/15/17 03:11 PT 19.7 Seconds (9.4-12.1) H 05/15/17 07:20 D-Dimer 589 ng/mLFEU (0-500) H 05/05/17 16:10 ABG pCO2 71 mmHg (35-45) H* 05/10/17 08:47 ABG pO2 84 mmHg (85-104) L 05/10/17 08:47 ABG HCO3 38 mEq/L (21-27) H 05/10/17 08:47 ABG Total CO2 40 mEq/L (20-26) H 05/10/17 08:47 ABG Base Excess 10 mEq/L (-2 to 3) H 05/10/17 08:47 BUN 5 mg/dL (7-20) L 05/15/17 03:11 POC Glucose 105 (58-89) H 05/14/17 11:09 Albumin 2.9 g/dL (3.5-5.0) L 05/14/17 03:09 Albumin/Globulin Ratio 0.9 (1.1-2.2) L 05/14/17 03:09 Urine Blood Trace (Negative) H 05/09/17 09:07 - Clinical Findings Intake & Output: Intake & Output 05/14/17 05/15/17 05/15/17 23:59 07:59 15:59 Intake Total 310 / 310 1000 / 1000 Output Total 325 / 325 200 / 200 Balance -15 / -15 800 / 800 Weight 33.1 kg Consult Discharge Plan - Plan Referrals: Chandan Serrano MD [Primary Care Provider] - 05/15/17 2:15 pm <Domenica Meadows S - Last Filed: 05/15/17 21:31> Date of Encounter: 05/15/17 Objective PUL Vital signs: Last Vital Signs Temp 99.5 F 05/15/17 21:00 Pulse 89 05/15/17 21:00 Resp 20 05/15/17 21:00 BP 138/74 05/15/17 21:00 Pulse Ox 97 05/15/17 21:00 Results - Laboratory Findings CBC and BMP: 05/15/17 03:11 05/15/17 03:11 ABG ABG pH 7.33 pH Units (7.32-7.45) 05/10/17 08:47 ABG pCO2 71 mmHg (35-45) H* 05/10/17 08:47 ABG pO2 84 mmHg (85-104) L 05/10/17 08:47 ABG O2 Saturation 95 % (95-98) 05/10/17 08:47 PT/INR, D-dimer PT 19.7 Seconds (9.4-12.1) H 05/15/17 07:20 D-Dimer 589 ng/mLFEU (0-500) H 05/05/17 16:10 Abnormal lab findings: Abnormal lab results Hgb 10.3 g/dL (11.5-15.4) L 05/15/17 03:11 Hct 32.1 % (35.3-44.9) L 05/15/17 03:11 MCV 82.1 fL (83.0-100.0) L 05/15/17 03:11 MCH 26.3 pg (28.0-33.3) L 05/15/17 03:11 RDW 17.2 % (11.5-14.5) H 05/15/17 03:11 Nucleated RBCs/100 WBC 0.3 /100 WBC (0) H 05/10/17 03:25 Immature Plt Fraction 6.5 % (1.1-6.1) H 05/15/17 03:11 PT 19.7 Seconds (9.4-12.1) H 05/15/17 07:20 D-Dimer 589 ng/mLFEU (0-500) H 05/05/17 16:10 ABG pCO2 71 mmHg (35-45) H* 05/10/17 08:47 ABG pO2 84 mmHg (85-104) L 05/10/17 08:47 ABG HCO3 38 mEq/L (21-27) H 05/10/17 08:47 ABG Total CO2 40 mEq/L (20-26) H 05/10/17 08:47 ABG Base Excess 10 mEq/L (-2 to 3) H 05/10/17 08:47 BUN 5 mg/dL (7-20) L 05/15/17 03:11 POC Glucose 105 (58-89) H 05/14/17 11:09 Albumin 2.9 g/dL (3.5-5.0) L 05/14/17 03:09 Albumin/Globulin Ratio 0.9 (1.1-2.2) L 05/14/17 03:09 Urine Blood Trace (Negative) H 05/09/17 09:07 - Clinical Findings Intake & Output: Intake & Output 05/15/17 05/15/17 05/15/17 07:59 15:59 23:59 Intake Total 1000 / 1000 0 / 0 Output Total 200 / 200 425 / 425 0 / 0 Balance 800 / 800 -425 / -425 0 / 0 Weight 33.1 kg - Attending Attestation I saw the patient with the resident agree with History and Physical exam findings. 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 PE will give tonight Lovenox and then hold it in the morning for PEG tube placement Cardiac : Hemodynamically stable Nutrition/GI: Because of recurrent aspiration GI was consulted PEG tube placement , family is Ok . wanted to give FFP overnight get an PT/INR in the morning, patient is on the schedule for tomorrow afternoon Renal : Labs reviewed Heme onc : No acute issues ID : No fever or leukocytosis Musculo skeletal / skin issues Disposition : Transfer to the floor Code status: Full Code Family/POA: Mother and Father
[2017-05-15] MEDS: Scopolamine Patch 1.5 MG PATCH.TD72 TD SCH (09:05)
[2017-05-15] MEDS: Baclofen 10 MG TABLET PO SCH ×2 (09:06→20:38)
[2017-05-15] MEDS: Potassium Chloride Elixir 20 MEQ/15 ML UDC GTUBE SCH (09:06)
[2017-05-15] MEDS: Budesonide/Formoterol 80/4.5 MDI IH SCH (10:14)
[2017-05-15] MEDS ORDERED: Nystatin Cream 15 GM TUBE TP SCH (15:00)
[2017-05-15] MEDS ORDERED: *HR* Dextrose 50 % in Water (Syg) 50 ML SYRINGE IVP PRN (15:32)
[2017-05-15] MEDS ORDERED: Naloxone 0.4 MG/ML INJ IVP PRN (15:32)
[2017-05-15] MEDS ORDERED: Dextrose Gel 15 GM PO PRN ×2 (15:32)
[2017-05-15] MEDS ORDERED: Acetaminophen 325 MG TABLET PO PRN (15:32)
[2017-05-15] MEDS ORDERED: Albuterol 2.5 MG/3 ML NEBULIZER IH PRN (15:32)
[2017-05-15] MEDS ORDERED: Potassium Phosphate 44 MEQ in 0.9 % Sodium Chloride 250 ML IVPB PRN (15:32)
[2017-05-15] MEDS: Nystatin Cream 15 GM TUBE TP SCH (18:25)
[2017-05-15] MEDS ORDERED: Budesonide/Formoterol 80/4.5 MDI IH SCH (22:00)
[2017-05-16] MEDS ORDERED: 0.9 % Sodium Chloride 250 ML ONE ×2 (02:58→05:59)
[2017-05-16] MEDS: Levalbuterol Neb 0.63 MG/3 ML IH SCH ×4 (04:14→23:11)
[2017-05-16] MEDS: *HR* Enoxaparin 30 MG/0.3 ML SYRINGE SQ SCH ×2 (05:43→18:07)
[2017-05-16] MEDS: Baclofen 10 MG TABLET PO SCH ×2 (07:51→20:41)
[2017-05-16] MEDS ORDERED: Potassium Chloride Elixir 20 MEQ/15 ML UDC GTUBE SCH (09:00)
[2017-05-16] MEDS: Nystatin Cream 15 GM TUBE TP SCH ×2 (09:33→15:00)
[2017-05-16] MEDS: Famotidine 20 MG/2 ML VIAL IVP SCH (09:33)
[2017-05-16] MEDS: D5% in Water 1,000 ML IVC SCH ×2 (09:34→20:38)
--- NOTE | 2017-05-16 10:18 | Anesthesia Evaluation PreOp ---
Date of Encounter: 05/16/17 Time of Encounter: 10:15 - Past History Planned Operation: PEG Insertion Cardiac History: Other (Factor V Leiden) Pulmonary History: Other (Gm. PE, acute resp depression with hypoxia this admission, Multiple pulmonary emboli; bilateral lower lobes, left upper PA and lingular PA without corpulmonale.) MOLDER MACHINE History: Other (Cerebral Palsy, Spastic Diplegia with Generalized contractures, chronic sacral decubitus. cognitive /developmental delay.) Other Medical History: GERD, Other (Dysphagia) Anesthesia History: No Prior Anesthetic Complications, Past Anesthesia (Hip sx, tendon/ligament release thighs) : No Test: Negative (05/16/17) Alcohol Use: none Drug use: none Medications and Allergies Albuterol Neb [Proventil Neb] 2.5 mg IH TID 02/13/16 [History] Baclofen [Lioresal] 10 mg PO BID 02/13/16 [History] Ranitidine HCl [Heartburn Relief] 150 mg PO DAILY 02/13/16 [History] Simvastatin [Zocor] 20 mg PO DAILY 02/13/16 [History] Polyethylene Glycol 3350 [MiraLAX] 17 gm PO DAILY PRN 03/12/16 [History] Acetaminophen [Tylenol] 650 mg PO Q6HR PRN 06/15/16 [History] Desmopressin Acetate [Ddavp] 0.4 mg PO TID 30 Days tablet 06/21/16 [Rx] Nutritional Supplement [Ensure] 113 gm PO TIDWM 30 Days container 06/21/16 [Rx] 3 Allergy/AdvReac Type Severity Reaction Status Date / Time No Known Allergies Allergy Verified 05/05/17 16:09 - Meds/Allergy Pre-op Review Medications Reviewed: Yes Allergies Reviewed: Yes Beta Blockers on Current Med List: No Anesthesia Results - Labs 05/16/17 10:57 05/16/17 10:57 Echocardiogram Name: Ro Fairchild Date of Study: 02/14/2016 Indications: Acute pulmonary embolism Impressions: LVEF 70%. Indeterminate diastolic function. Normal right ventricular size with hyperdynamic function. No significant valvular dysfunction. No evidence for pulmonary hypertension by TR gradient. IVC is not well visualized. Laboratory Tests 05/16/17 12:08 Serum , Qual Negative - Imaging EKG: image reviewed ( 2017-05-09 SINUS TACHYCARDIA WITH SHORT [place] INTERVAL MINIMAL ST DEPRESSION) Anesthesia Exam O2 Sat Weight 30.572 kg O2 Sat by Pulse Oximetry 98 O2 Sat by Pulse Oximetry 98 O2 Sat by Pulse Oximetry 94 O2 Sat by Pulse Oximetry 97 O2 Sat by Pulse Oximetry 97 O2 Sat by Pulse Oximetry 96 O2 Sat by Pulse Oximetry 99 O2 Sat by Pulse Oximetry 98 O2 Sat by Pulse Oximetry 97 O2 Sat by Pulse Oximetry 100 O2 Sat by Pulse Oximetry 100 O2 Sat by Pulse Oximetry 100 O2 Sat by Pulse Oximetry 99 O2 Sat by Pulse Oximetry 97 O2 Sat by Pulse Oximetry 97 Vital Signs Temp Pulse Resp BP Pulse Ox 98.2 F 111 18 139/99 97 05/05/17 16:02 05/05/17 16:02 05/05/17 16:02 05/05/17 16:02 05/05/17 16:02 Vital Signs/O2 Sat, Most Current Temp Pulse Resp BP Pulse Ox 99.1 F 63 16 136/75 98 05/16/17 09:26 05/16/17 09:26 05/16/17 10:26 05/16/17 09:26 05/16/17 10:26 Height: 4'8'' Weight: 67# NPO (# of Hours): > 8 hrs Pain Scale: 0 Pain Scale Used: Numeric (1 - 10) - HEENT Pupil (Motor): Pupils equal, EOMI Mallampati: II Teeth: Normal Oral Opening: Greater than 3 - MOLDER MACHINE LOC: Disoriented, Uncooperative MOLDER MACHINE Motor: Deficit RUE (Contractures), Deficit LUE (Contractures), Deficit RLE ( Contractures), Deficit LLE (Contractures), Deficit Face (Contractures) MOLDER MACHINE Sensory: Normal: RUE, LUE, RLE, LLE, Face - Cardiac Rhythm: Regular Murmur: None JVD: No Carotid Bruit: No - Pulmonary Breath Sounds: bilateral Clear Respiratory Effort: Symmetrical Anesthesia Assess/Plan ASA Score: 4 Modified Trev Scale for Level of Consciousness: Anixous, agitated or restless Anesthetic Plan: MAC Autologous Blood: Yes Monitoring Plan: Standard Monitors Recovery Plan: Other
[2017-05-16 11:22] LABS: Basophils % 0.1 %; Eosinophils # 0.2 K/mcL (0.0-0.6); Eosinophils % 2.3 %; Hematocrit 28.1 % (35.3-44.9); Immature Granulocytes % 0.3 % (0-4); Lymphocytes # 0.8 K/mcL (0.6-4.6); Mean Corpuscular Hemoglobin 26.2 pg (28.0-33.3); Mean Corpuscular Volume 81.9 fL (83.0-100.0); Mean Platelet Volume 11.6 fL (9.4-12.4); Monocytes # 0.9 K/mcL (0.0-1.3); Monocytes % 10.7 %; Neutrophils # 6.7 K/mcL (1.6-8.9); Platelet Count 272 K/mcL (140-400); Red Blood Count 3.43 M/mcL (3.82-4.97); Red Cell Distribution Width 17.2 % (11.5-14.5); Segmented Neutrophils % 77.6 %
[2017-05-16 11:24] LABS: INR 1.6; Prothrombin Time 16.9 Seconds (9.4-12.1)
[2017-05-16 11:30] LABS: BUN/Creatinine Ratio 6 (6-26); Blood Urea Nitrogen 4 mg/dL (7-20); Calcium 8.6 mg/dL (8.6-10.8); Carbon Dioxide 23 mEq/L (19-29); Chloride 104 mEq/L (98-109); Glucose 92 mg/dL (70-99); Osmolality,Calculated 283 (280-300); Sodium 138 mEq/L (136-145); eGFR For African Americans > 60 (> 60); eGFR For Non-African Americans > 60 (> 60)
[2017-05-16] MEDS: 0.9 % Sodium Chloride 500 ML IVC SCH (12:49)
[2017-05-16] MEDS ORDERED: ceFAZolin 1,000 MG in D5% in Water (Mini-Bag+) 100 ML IVPB SCH (13:00)
--- NOTE | 2017-05-16 15:40 | Internal Med Progress Note ---
Date of Encounter: 05/16/17 Time of Encounter: 11:30 - Assessment and plan (1) Aspiration pneumonia Current Visit: Yes Status: Acute Assessment and plan: Prior Recurrent bouts of aspiration. Currently nothing by mouth. Patient has not had any new episodes of fever. No indication for antibiotics at this time. Sputum culture positive for Pseudomonas. Likely colonization. Qualifiers: Aspiration pneumonia type: unspecified Laterality: right Lung location: lower lobe of lung Qualified Code(s): J69.0 - Pneumonitis due to inhalation of food and vomit (2) Acute respiratory failure with hypoxia Current Visit: Yes Status: Resolved Assessment and plan: Now resolved. Patient on room air (3) Protein-calorie malnutrition, moderate Current Visit: Yes Status: Acute Assessment and plan: PEG tube placement today. 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 Continue desmopressin (7) Dysphagia, oropharyngeal phase Current Visit: Yes Status: Acute Assessment and plan: Keep nothing by mouth. PEG tube placement today. (8) Factor V Leiden Current Visit: Yes Status: Chronic Assessment and plan: Resume anticoagulation later today. (9) Diarrhea Current Visit: Yes Status: Acute Assessment and plan: Will check stool for C. difficile has patient has been on antibiotics recently. Qualifiers: Diarrhea type: unspecified type Qualified Code(s): R19.7 - Diarrhea, unspecified - Subjective Interval history: Patient is awake and alert. She is scheduled to undergo PEG tube placement later today. Family reports that patient has been having diarrhea. No new episodes of fever. - Constitutional Vitals: Temp Pulse Resp BP Pulse Ox 99.0 F 97 18 133/83 94 05/16/17 15:03 05/16/17 15:03 05/16/17 15:03 05/16/17 15:03 05/16/17 15:03 General appearance: Present: cooperative, A&O X 1, no acute distress, underweight - Respiratory Respiratory exam: Present: CTAB. Absent: accessory muscle use, rales, rhonchi, wheezes - Cardiovascular Cardiovascular exam: Present: RRR, +S1, +S2. Absent: diastolic murmur, gallop, rubs, systolic murmur - GI/Abdominal GI/Abdominal exam: Present: normal bowel sounds, soft, no peritoneal signs. Absent: distended, tenderness - Extremities Exam Extremities exam: Absent: calf tenderness, cyanotic, pedal edema - Neurological Exam Neurological exam: Present: alert. Absent: facial droop, speech deficit Additional comments: Cerebral palsy with spasticity - Skin Skin exam: Present: dry, intact Internal Medicine: Result - Labs CBC & Chem 7: 05/16/17 10:57 05/16/17 10:57 Labs: Short CBC 05/16/17 Range/Units 10:57 WBC 8.6 (4.3-11.1) K/mcL Hgb 9.0 L (11.5-15.4) g/dL Hct 28.1 L (35.3-44.9) % Plt Count 272 (140-400) K/mcL Neutrophils # 6.7 (1.6-8.9) K/mcL BMP 05/16/17 10:57 Sodium 138 Potassium 3.0 L D Chloride 104 Carbon Dioxide 23 BUN 4 L Creatinine 0.66 Glucose 92 Calcium 8.6 - ABG Interpretation ABG results: ABG ABG pH 7.33 pH Units (7.32-7.45) 05/10/17 08:47 ABG pCO2 71 mmHg (35-45) H* 05/10/17 08:47 ABG pO2 84 mmHg (85-104) L 05/10/17 08:47 ABG O2 Saturation 95 % (95-98) 05/10/17 08:47 PT/INR, D-dimer PT 16.9 Seconds (9.4-12.1) H 05/16/17 10:57 D-Dimer 589 ng/mLFEU (0-500) H 05/05/17 16:10 Consult Discharge Plan - Plan Referrals: Chandan Serrano MD [Primary Care Provider] - Miah Jenkins MD [Partnered Physician] - 05/30/17 11:40 am
[2017-05-16] MEDS ORDERED: *HR* Warfarin 2.5 MG TABLET PO ONE (18:00)
[2017-05-16] MEDS ORDERED: Warfarin perPT PO PRN (18:00)
[2017-05-16] MEDS: MetroNIDAZOLE 500 MG/100 ML 500 MG/100 ML BAG IVPB SCH (18:24)
[2017-05-16] MEDS ORDERED: Acetaminophen IV 1,000 MG/100 ML INFUS..BTL IVPB ONE (18:54)
[2017-05-16] MEDS: *HR* Morphine 2 MG/ML SYRINGE IVP PRN (20:41)
[2017-05-16] MEDS ORDERED: Cefepime HCl 1,000 MG in D5% in Water (Mini-Bag+) 100 ML IVPB SCH (22:00)
[2017-05-17] MEDS: Cefepime HCl 1,000 MG in Water for inj. (sterile) 10 ML IVP SCH ×3 (00:34→21:19)
[2017-05-17] MEDS: MetroNIDAZOLE 500 MG/100 ML 500 MG/100 ML BAG IVPB SCH ×3 (00:35→16:02)
[2017-05-17] MEDS: 0.9 % Sodium Chloride 500 ML IVC SCH (00:36)
[2017-05-17] MEDS: Nystatin Cream 15 GM TUBE TP SCH ×4 (00:40→21:18)
[2017-05-17] MEDS: Levalbuterol Neb 0.63 MG/3 ML IH SCH ×4 (03:27→21:54)
[2017-05-17] MEDS: *HR* Enoxaparin 30 MG/0.3 ML SYRINGE SQ SCH ×2 (05:25→19:07)
[2017-05-17 05:36] LABS: BUN/Creatinine Ratio 7 (6-26); Blood Urea Nitrogen 5 mg/dL (7-20); Calcium 7.4 mg/dL (8.6-10.8); Carbon Dioxide 24 mEq/L (19-29); Chloride 105 mEq/L (98-109); Glucose 110 mg/dL (70-99); Osmolality,Calculated 280 (280-300); Potassium 2.8 mEq/L (3.5-4.5); Sodium 136 mEq/L (136-145); eGFR For African Americans > 60 (> 60); eGFR For Non-African Americans > 60 (> 60)
[2017-05-17 05:49] LABS: Prothrombin Time 21.7 Seconds (9.4-12.1)
[2017-05-17 05:57] LABS: Basophils % 0.1 %; Eosinophils # 0.2 K/mcL (0.0-0.6); Eosinophils % 2.2 %; Hematocrit 25.1 % (35.3-44.9); Hemoglobin 7.9 g/dL (11.5-15.4); Immature Granulocytes % 0.2 % (0-4); Lymphocytes # 1.4 K/mcL (0.6-4.6); Lymphocytes % 15.5 %; Mean Corpuscular HGB Conc 31.5 g/dL (31.6-35.5); Mean Corpuscular Volume 82.6 fL (83.0-100.0); Mean Platelet Volume 11.6 fL (9.4-12.4); Monocytes # 0.9 K/mcL (0.0-1.3); Monocytes % 9.3 %; Neutrophils # 6.8 K/mcL (1.6-8.9); Platelet Count 215 K/mcL (140-400); Red Blood Count 3.04 M/mcL (3.82-4.97); Red Cell Distribution Width 17.6 % (11.5-14.5); Segmented Neutrophils % 72.7 %
[2017-05-17] MEDS ORDERED: Potassium Chloride 20 MEQ, Lidocaine 1% 2 ML in D5% in Water 250 ML IVPB ONE (09:06)
[2017-05-17] MEDS: Potassium Chloride Elixir 20 MEQ/15 ML UDC GTUBE SCH ×2 (10:24→21:17)
[2017-05-17] MEDS: Baclofen 10 MG TABLET PO SCH (10:26)
[2017-05-17] MEDS: Famotidine 20 MG/2 ML VIAL IVP SCH (10:26)
[2017-05-17] MEDS ORDERED: *HR* Propofol 200 MG/20 ML VIAL IVP ONE (12:51)
--- NOTE | 2017-05-17 14:44 | Internal Med Progress Note ---
Date of Encounter: 05/17/17 Time of Encounter: 10:40 - Assessment and plan (1) Aspiration pneumonia Current Visit: Yes Status: Acute Assessment and plan: Continue cefepime and Flagyl. Will repeat chest x-ray tomorrow for follow-up. Moderate risk for complications. Qualifiers: Aspiration pneumonia type: unspecified Laterality: right Lung location: lower lobe of lung Qualified Code(s): J69.0 - Pneumonitis due to inhalation of food and vomit (2) Acute respiratory failure with hypoxia Current Visit: Yes Status: Acute Assessment and plan: Patient is back on nasal cannula likely due to aspiration pneumonia. We will wean FiO2 as tolerated. (3) Protein-calorie malnutrition, moderate Current Visit: Yes Status: Acute Assessment and plan: Started on tube feeds. We will continue per nutrition recommendations. 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 Continue tube feeds. Speech therapy (8) Factor V Leiden Current Visit: Yes Status: Chronic (9) C. difficile diarrhea Current Visit: Yes Status: Acute Assessment and plan: Patient still positive for C. difficile. Started on Flagyl. Diarrhea seems to be improving. (10) Diarrhea Current Visit: Yes Status: Acute Qualifiers: Diarrhea type: infectious Qualified Code(s): A09 - Infectious gastroenteritis and colitis, unspecified (11) Hypokalemia Current Visit: Yes Status: Acute Assessment and plan: Likely due to diarrhea. We will replete orally and intravenously - Subjective Interval history: Patient has not had any further episodes of diarrhea. She did develop fever last night and chest x-ray showed possible right lower lobe infiltrate. Concerning for pneumonia. She has been started on IV antibiotics. She has not had any further episodes of fever since then. Currently is lying in bed. Appears comfortable and is sleeping. Tube feeds have been started and patient tolerating them well. - Constitutional Vitals: Temp Pulse Resp BP Pulse Ox 97.7 F 57 16 104/53 99 05/17/17 10:58 05/17/17 10:58 05/17/17 10:58 05/17/17 08:05 05/17/17 10:58 General appearance: Present: cooperative, no acute distress, underweight Exam: Patient is currently somnolent - Respiratory Respiratory exam: Present: CTAB. Absent: accessory muscle use, rales, rhonchi, wheezes - Cardiovascular Cardiovascular exam: Present: RRR, +S1, +S2. Absent: diastolic murmur, gallop, rubs, systolic murmur - GI/Abdominal GI/Abdominal exam: Present: normal bowel sounds, soft, no peritoneal signs. Absent: distended, tenderness - Extremities Exam Extremities exam: Present: warm, radial pulses palpable and symmetrical. Absent : calf tenderness, cyanotic, pedal edema - Neurological Exam Neurological exam: Absent: facial droop, speech deficit Additional comments: Cerebral palsy with spasticity Internal Medicine: Result - Labs CBC & Chem 7: 05/17/17 04:15 05/17/17 04:15 Labs: Short CBC 05/17/17 Range/Units 04:15 WBC 9.3 (4.3-11.1) K/mcL Hgb 7.9 L (11.5-15.4) g/dL Hct 25.1 L (35.3-44.9) % Plt Count 215 (140-400) K/mcL Neutrophils # 6.8 (1.6-8.9) K/mcL BMP 05/17/17 04:15 Sodium 136 Potassium 2.8 L Chloride 105 Carbon Dioxide 24 BUN 5 L Creatinine 0.68 Glucose 110 H Calcium 7.4 L - ABG Interpretation ABG results: ABG ABG pH 7.33 pH Units (7.32-7.45) 05/10/17 08:47 ABG pCO2 71 mmHg (35-45) H* 05/10/17 08:47 ABG pO2 84 mmHg (85-104) L 05/10/17 08:47 ABG O2 Saturation 95 % (95-98) 05/10/17 08:47 PT/INR, D-dimer PT 21.7 Seconds (9.4-12.1) H 05/17/17 04:15 D-Dimer 589 ng/mLFEU (0-500) H 05/05/17 16:10 - Impressions Impressions Chest X-Ray 05/16/17 18:59 IMPRESSION: 1. At least trace pneumoperitoneum. Correlate for recent procedures. Critical results were called by Dr. Georgi Powell MD to Dr. Hu on 05/16/2017 at 20:57. 2. Persistent left pleural effusion and underlying left lung airspace opacity suspicious for pneumonia. Some associated atelectasis is likely present. 3. Questionable trace right apical pneumothorax. 4. Right basilar atelectasis. D/ / Georgi Powell MD / Georgi Powell MD Interpreting Provider: Georgi Powell MD Chest CT 05/16/17 21:07 IMPRESSION: 1. Severe motion artifact. 2. No definite evidence for pneumothorax. 3. Pneumoperitoneum again visualized. 4. Multifocal right lung airspace disease probably represents pneumonia. There is near complete left lung atelectasis. D/ / Papito Chacon MD / Papito Chacon MD Interpreting Provider: Papito Chacon MD - VTE Documentation of Mechanical Device: Intermittent pneumatic compression device Consult Discharge Plan - Plan Referrals: Chandan Serrano MD [Primary Care Provider] - Miah Jenkins MD [Partnered Physician] - 05/30/17 11:40 am
[2017-05-17 15:46] LABS: Phosphorous 2.7 mg/dL (2.3-4.7)
[2017-05-17] MEDS ORDERED: *HR* Warfarin 1 MG TABLET PO ONE (18:00)
[2017-05-17] MEDS: Baclofen 10 MG TABLET GTUBE SCH (21:18)
[2017-05-17] MEDS: D5% in Water 1,000 ML IVC SCH (21:19)
[2017-05-18] MEDS: MetroNIDAZOLE 500 MG/100 ML 500 MG/100 ML BAG IVPB SCH ×3 (00:30→15:36)
[2017-05-18] MEDS: Levalbuterol Neb 0.63 MG/3 ML IH SCH ×4 (04:25→22:03)
[2017-05-18 04:58] LABS: Basophils % 0.1 %; Eosinophils # 0.5 K/mcL (0.0-0.6); Hematocrit 23.5 % (35.3-44.9); Hemoglobin 7.4 g/dL (11.5-15.4); Immature Granulocytes % 0.5 % (0-4); Lymphocytes # 1.1 K/mcL (0.6-4.6); Lymphocytes % 14.5 %; Mean Corpuscular HGB Conc 31.5 g/dL (31.6-35.5); Mean Corpuscular Hemoglobin 26.3 pg (28.0-33.3); Mean Corpuscular Volume 83.6 fL (83.0-100.0); Mean Platelet Volume 11.6 fL (9.4-12.4); Monocytes # 0.8 K/mcL (0.0-1.3); Monocytes % 10.2 %; Neutrophils # 5.3 K/mcL (1.6-8.9); Platelet Count 237 K/mcL (140-400); Red Blood Count 2.81 M/mcL (3.82-4.97); Red Cell Distribution Width 17.7 % (11.5-14.5); Segmented Neutrophils % 68.7 %
[2017-05-18 05:02] LABS: Prothrombin Time 22.3 Seconds (9.4-12.1)
[2017-05-18 05:12] LABS: BUN/Creatinine Ratio 10 (6-26); Blood Urea Nitrogen 6 mg/dL (7-20); Carbon Dioxide 23 mEq/L (19-29); Chloride 110 mEq/L (98-109); Glucose 108 mg/dL (70-99); Osmolality,Calculated 280 (280-300); Sodium 136 mEq/L (136-145); eGFR For African Americans > 60 (> 60); eGFR For Non-African Americans > 60 (> 60)
[2017-05-18] MEDS: *HR* Enoxaparin 30 MG/0.3 ML SYRINGE SQ SCH ×2 (05:12→17:14)
[2017-05-18] MEDS: Scopolamine Patch 1.5 MG PATCH.TD72 TD SCH (08:25)
[2017-05-18] MEDS: Metoclopramide 10 MG/10 ML UD.LIQ GTUBE SCH (08:25)
[2017-05-18] MEDS: Nystatin Cream 15 GM TUBE TP SCH ×3 (08:25→21:00)
[2017-05-18] MEDS: Baclofen 10 MG TABLET GTUBE SCH ×2 (08:28→21:41)
[2017-05-18] MEDS: Famotidine 20 MG/2 ML VIAL IVP SCH (08:28)
[2017-05-18] MEDS: Cefepime HCl 1,000 MG in Water for inj. (sterile) 10 ML IVP SCH ×2 (10:05→21:41)
--- NOTE | 2017-05-18 13:49 | Internal Med Progress Note ---
Date of Encounter: 05/18/17 Time of Encounter: 10:15 - Assessment and plan (1) Aspiration pneumonia Current Visit: Yes Status: Acute Assessment and plan: Continue current antibiotics for another day. We will repeat chest x-ray. Cultures negative. Plan to transition to oral antibiotics tomorrow. Qualifiers: Aspiration pneumonia type: unspecified Laterality: right Lung location: lower lobe of lung Qualified Code(s): J69.0 - Pneumonitis due to inhalation of food and vomit (2) Acute respiratory failure with hypoxia Current Visit: Yes Status: Resolved Assessment and plan: Continue O2 supplementation. Patient is on 4 L at baseline. Currently on 2 L. (3) Protein-calorie malnutrition, moderate Current Visit: Yes Status: Acute Assessment and plan: Continue tube feeds (4) Bilateral pulmonary embolism Current Visit: Yes Status: Acute Assessment and plan: On Coumadin. 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 difficile diarrhea Current Visit: Yes Status: Acute Assessment and plan: Continue Flagyl. Diarrhea improving (10) Diarrhea Current Visit: Yes Status: Acute Qualifiers: Diarrhea type: infectious Qualified Code(s): A09 - Infectious gastroenteritis and colitis, unspecified (11) Hypokalemia Current Visit: Yes Status: Resolved - Subjective Interval history: Patient is doing much better today. No fever reported overnight. Diarrhea is also improving. Tolerating tube feeds well. - Constitutional Vitals: Temp Pulse Resp BP Pulse Ox 98.3 F 57 16 116/67 100 05/18/17 10:18 05/18/17 10:18 05/18/17 11:06 05/18/17 10:18 05/18/17 11:06 General appearance: Present: cooperative, no acute distress, underweight - Respiratory Respiratory exam: Absent: accessory muscle use, rales, rhonchi, wheezes Additional comments: Course breath sounds bilaterally - Cardiovascular Cardiovascular exam: Present: RRR, +S1, +S2. Absent: diastolic murmur, gallop, rubs, systolic murmur - GI/Abdominal GI/Abdominal exam: Present: normal bowel sounds, soft, no peritoneal signs. Absent: distended, tenderness - Neurological Exam Neurological exam: Absent: facial droop, speech deficit Additional comments: Cerebral palsy and spasticity in extremities - Skin Skin exam: Present: dry, intact Internal Medicine: Result - Labs CBC & Chem 7: 05/18/17 04:30 05/18/17 04:30 Labs: Short CBC 05/18/17 Range/Units 04:30 WBC 7.7 (4.3-11.1) K/mcL Hgb 7.4 L (11.5-15.4) g/dL Hct 23.5 L (35.3-44.9) % Plt Count 237 (140-400) K/mcL Neutrophils # 5.3 (1.6-8.9) K/mcL BMP 05/18/17 04:30 Sodium 136 Potassium 5.0 H D Chloride 110 H Carbon Dioxide 23 BUN 6 L Creatinine 0.60 Glucose 108 H Calcium 8.0 L - ABG Interpretation ABG results: ABG ABG pH 7.33 pH Units (7.32-7.45) 05/10/17 08:47 ABG pCO2 71 mmHg (35-45) H* 05/10/17 08:47 ABG pO2 84 mmHg (85-104) L 05/10/17 08:47 ABG O2 Saturation 95 % (95-98) 05/10/17 08:47 PT/INR, D-dimer PT 22.3 Seconds (9.4-12.1) H 05/18/17 04:30 D-Dimer 589 ng/mLFEU (0-500) H 05/05/17 16:10 - VTE Documentation of Mechanical Device: Intermittent pneumatic compression device Consult Discharge Plan - Plan Referrals: Chandan Serrano MD [Primary Care Provider] - Miah Jenkins MD [Partnered Physician] - 05/30/17 11:40 am
[2017-05-18] MEDS: D5% in Water 1,000 ML IVC SCH (17:12)
[2017-05-18] MEDS ORDERED: *HR* Warfarin 1 MG TABLET GTUBE ONE (18:00)
[2017-05-19] MEDS: MetroNIDAZOLE 500 MG/100 ML 500 MG/100 ML BAG IVPB SCH ×2 (00:15→08:13)
[2017-05-19] MEDS: Levalbuterol Neb 0.63 MG/3 ML IH SCH ×4 (04:06→21:57)
[2017-05-19 04:44] LABS: Basophils % 0.1 %; Eosinophils # 0.3 K/mcL (0.0-0.6); Eosinophils % 4.6 %; Hematocrit 25.7 % (35.3-44.9); Hemoglobin 8.2 g/dL (11.5-15.4); Immature Granulocytes % 0.4 % (0-4); Lymphocytes # 1.3 K/mcL (0.6-4.6); Lymphocytes % 18.4 %; Mean Corpuscular HGB Conc 31.9 g/dL (31.6-35.5); Mean Corpuscular Volume 81.6 fL (83.0-100.0); Mean Platelet Volume 11.3 fL (9.4-12.4); Monocytes # 0.8 K/mcL (0.0-1.3); Monocytes % 11.4 %; Neutrophils # 4.5 K/mcL (1.6-8.9); Platelet Count 273 K/mcL (140-400); Red Blood Count 3.15 M/mcL (3.82-4.97); Red Cell Distribution Width 17.7 % (11.5-14.5); Segmented Neutrophils % 65.1 %
[2017-05-19 04:51] LABS: INR 1.7; Prothrombin Time 18.4 Seconds (9.4-12.1)
[2017-05-19 05:02] LABS: BUN/Creatinine Ratio 11 (6-26); Blood Urea Nitrogen 6 mg/dL (7-20); Calcium 7.9 mg/dL (8.6-10.8); Carbon Dioxide 25 mEq/L (19-29); Glucose 98 mg/dL (70-99); Osmolality,Calculated 254 (280-300); Potassium 4.1 mEq/L (3.5-4.5); eGFR For African Americans > 60 (> 60); eGFR For Non-African Americans > 60 (> 60)
[2017-05-19 05:03] LABS: Chloride 93 mEq/L (98-109); Sodium 123 mEq/L (136-145)
[2017-05-19] MEDS: *HR* Enoxaparin 30 MG/0.3 ML SYRINGE SQ SCH ×2 (05:19→17:25)
[2017-05-19] MEDS: Metoclopramide 10 MG/10 ML UD.LIQ GTUBE SCH (08:13)
[2017-05-19] MEDS: Famotidine 20 MG/2 ML VIAL IVP SCH (08:13)
[2017-05-19] MEDS: Baclofen 10 MG TABLET GTUBE SCH ×2 (08:13→20:38)
[2017-05-19] MEDS: Nystatin Cream 15 GM TUBE TP SCH ×3 (08:14→20:39)
[2017-05-19] MEDS: Cefepime HCl 1,000 MG in Water for inj. (sterile) 10 ML IVP SCH (09:46)
--- NOTE | 2017-05-19 11:48 | Internal Med Progress Note ---
Date of Encounter: 05/19/17 Time of Encounter: 11:48 - Assessment and plan (1) Hyponatremia Current Visit: Yes Status: Acute Assessment and plan: Likely due to desmopressin use along with free water hydration. We will stop IV fluids. Hold desmopressin for now. Monitor sodium levels. (2) Aspiration pneumonia Current Visit: Yes Status: Acute Assessment and plan: Chest x-ray done yesterday showed clearing of infiltrate or changes especially in the right lung. We will transition to oral antibiotics through PEG tube. Qualifiers: Aspiration pneumonia type: unspecified Laterality: right Lung location: lower lobe of lung Qualified Code(s): J69.0 - Pneumonitis due to inhalation of food and vomit (3) Acute respiratory failure with hypoxia Current Visit: Yes Status: Resolved Assessment and plan: On baseline home oxygen especially at bedtime. She has been on room air this morning. (4) Protein-calorie malnutrition, moderate Current Visit: Yes Status: Acute Assessment and plan: We will resume tube feeds later today. Monitor gastric residuals. If bowel distention continues, we will get x-ray of the abdomen. Most likely ileus. (5) Bilateral pulmonary embolism Current Visit: Yes Status: Acute Assessment and plan: Continue anticoagulation with Lovenox and Coumadin. 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 We will hold desmopressin. Monitor sodium levels closely. (8) Dysphagia, oropharyngeal phase Current Visit: Yes Status: Acute Assessment and plan: Keep nothing by mouth. Continue tube feeds (9) Factor V Leiden Current Visit: Yes Status: Chronic Assessment and plan: Continue anticoagulation with Lovenox and Coumadin (10) C. difficile diarrhea Current Visit: Yes Status: Acute Assessment and plan: On Flagyl. We will transition to oral regimen. (11) Diarrhea Current Visit: Yes Status: Resolved Assessment and plan: Improving. Qualifiers: Diarrhea type: infectious Qualified Code(s): A09 - Infectious gastroenteritis and colitis, unspecified (12) Hypokalemia Current Visit: Yes Status: Resolved (13) Anemia Current Visit: Yes Status: Chronic Assessment and plan: Acute on chronic anemia. Improving. Hemoglobin 8.2 today. Most likely nutritional. Qualifiers: Anemia type: other cause Other causes of anemia: other cause, not classified Qualified Code(s): D64.89 - Other specified anemias - Subjective Interval history: Patient is awake and alert. Tube feeds were held this morning as patient is having increased abdominal distention. She however continues to have bowel movements. Not in any discomfort at this time. No mental status changes noted. Patient did have vaginal bleeding last night which could be due to her menstrual period. - Constitutional Vitals: Temp Pulse Resp BP Pulse Ox 98.0 F 58 18 102/48 100 05/19/17 07:46 05/19/17 07:46 05/19/17 07:46 05/19/17 07:46 05/19/17 07:46 General appearance: Present: cooperative, no acute distress, underweight - Respiratory Respiratory exam: Absent: accessory muscle use, rales, rhonchi, wheezes Additional comments: Coarse breath sounds bilaterally - Cardiovascular Cardiovascular exam: Present: RRR, +S1, +S2. Absent: diastolic murmur, gallop, rubs, systolic murmur - GI/Abdominal GI/Abdominal exam: Present: normal bowel sounds, soft, no peritoneal signs. Absent: distended, tenderness - Extremities Exam Extremities exam: Present: warm, radial pulses palpable and symmetrical. Absent : calf tenderness, cyanotic, pedal edema - Neurological Exam Neurological exam: Present: alert. Absent: facial droop, speech deficit Additional comments: Cerebral palsy with spasticity in all 4 extremities Internal Medicine: Result - Labs CBC & Chem 7: 05/19/17 04:30 05/19/17 04:30 Labs: Short CBC 05/19/17 Range/Units 04:30 WBC 6.9 (4.3-11.1) K/mcL Hgb 8.2 L (11.5-15.4) g/dL Hct 25.7 L (35.3-44.9) % Plt Count 273 (140-400) K/mcL Neutrophils # 4.5 (1.6-8.9) K/mcL BMP 05/19/17 04:30 Sodium 123 L D Potassium 4.1 Chloride 93 L D Carbon Dioxide 25 BUN 6 L Creatinine 0.55 L Glucose 98 Calcium 7.9 L - ABG Interpretation ABG results: ABG ABG pH 7.33 pH Units (7.32-7.45) 05/10/17 08:47 ABG pCO2 71 mmHg (35-45) H* 05/10/17 08:47 ABG pO2 84 mmHg (85-104) L 05/10/17 08:47 ABG O2 Saturation 95 % (95-98) 05/10/17 08:47 PT/INR, D-dimer PT 18.4 Seconds (9.4-12.1) H 05/19/17 04:30 D-Dimer 589 ng/mLFEU (0-500) H 05/05/17 16:10 - Impressions Impressions Chest X-Ray 05/18/17 13:46 IMPRESSION: Improved aeration in the right lung. Somewhat limited evaluation of the left lower lung zone. D/ / Geremias Mera MD / Geremias Mera MD Interpreting Provider: Geremias Mera MD - VTE Documentation of Mechanical Device: Intermittent pneumatic compression device Consult Discharge Plan - Plan Referrals: Chandan Serrano MD [Primary Care Provider] - Miah Jenkins MD [Partnered Physician] - 05/30/17 11:40 am
[2017-05-19 14:06] LABS: BUN/Creatinine Ratio 12 (6-26); Blood Urea Nitrogen 7 mg/dL (7-20); Calcium 7.9 mg/dL (8.6-10.8); Carbon Dioxide 24 mEq/L (19-29); Chloride 93 mEq/L (98-109); Glucose 104 mg/dL (70-99); Osmolality,Calculated 254 (280-300); Sodium 123 mEq/L (136-145); eGFR For African Americans > 60 (> 60); eGFR For Non-African Americans > 60 (> 60)
[2017-05-19] MEDS: metroNIDAZOLE 500 MG TABLET PO SCH ×2 (14:10→20:52)
[2017-05-19] MEDS ORDERED: 0.9 % Sodium Chloride 1,000 ML IVC SCH (15:30)
[2017-05-19] MEDS ORDERED: Metoclopramide 10 MG/2 ML VIAL IVP ONE (17:11)
[2017-05-19] MEDS ORDERED: *HR* Warfarin 1 MG TABLET GTUBE ONE (18:00)
[2017-05-19] MEDS ORDERED: *HR* Warfarin 1 MG TABLET PO ONE (18:00)
[2017-05-20] MEDS: Levalbuterol Neb 0.63 MG/3 ML IH SCH ×2 (04:08→10:35)
[2017-05-20] MEDS: *HR* Enoxaparin 30 MG/0.3 ML SYRINGE SQ SCH ×2 (04:28→18:42)
[2017-05-20 05:08] LABS: INR 1.4; Prothrombin Time 14.9 Seconds (9.4-12.1)
[2017-05-20 06:06] LABS: BUN/Creatinine Ratio 9 (6-26); Blood Urea Nitrogen 5 mg/dL (7-20); Calcium 8.2 mg/dL (8.6-10.8); Carbon Dioxide 24 mEq/L (19-29); Chloride 98 mEq/L (98-109); Glucose 86 mg/dL (70-99); Osmolality,Calculated 265 (280-300); Potassium 3.7 mEq/L (3.5-4.5); Sodium 129 mEq/L (136-145); eGFR For African Americans > 60 (> 60); eGFR For Non-African Americans > 60 (> 60)
[2017-05-20] MEDS: metroNIDAZOLE 500 MG TABLET PO SCH ×3 (08:13→21:43)
[2017-05-20] MEDS: Baclofen 10 MG TABLET GTUBE SCH ×2 (08:13→21:44)
[2017-05-20] MEDS: Famotidine 20 MG/2 ML VIAL IVP SCH (08:13)
[2017-05-20] MEDS: levoFLOXacin 500 MG TABLET PO SCH (08:13)
[2017-05-20] MEDS: Metoclopramide 10 MG/10 ML UD.LIQ GTUBE SCH (08:14)
[2017-05-20] MEDS: Nystatin Cream 15 GM TUBE TP SCH ×3 (08:15→21:44)
[2017-05-20 08:44] LABS: Magnesium 1.3 mg/dL (1.6-2.6); Phosphorous 2.5 mg/dL (2.3-4.7)
[2017-05-20] MEDS ORDERED: Metoclopramide 10 MG/2 ML VIAL IVP PRN (09:02)
--- NOTE | 2017-05-20 14:48 | Internal Med Progress Note ---
Date of Encounter: 05/20/17 Time of Encounter: 10:15 - Assessment and plan (1) Protein-calorie malnutrition, moderate Current Visit: Yes Status: Acute Assessment and plan: Patient not tolerating oral tube feeds. We will decrease rate further. Place patient on Reglan. If not tolerating this, and she will need to be placed on TPN temporarily until she is able to tolerate tube feeds better. If she develops another episode of emesis, we will get abdominal x-ray. Moderate risk for complications. (2) C. difficile diarrhea Current Visit: Yes Status: Acute Assessment and plan: On Flagyl. Diarrhea improving. (3) Hyponatremia Current Visit: Yes Status: Acute Assessment and plan: Improved. We will continue to hold DDAVP for today. We will monitor sodium levels closely. May resume DDAVP when sodium levels are normal. (4) Aspiration pneumonia Current Visit: Yes Status: Acute Assessment and plan: Continue levofloxacin and Flagyl. Complete 5 more days of treatment. Qualifiers: Aspiration pneumonia type: unspecified Laterality: right Lung location: lower lobe of lung Qualified Code(s): J69.0 - Pneumonitis due to inhalation of food and vomit (5) Acute respiratory failure with hypoxia Current Visit: Yes Status: Resolved (6) Bilateral pulmonary embolism Current Visit: Yes Status: Acute Assessment and plan: On Coumadin. INR is subtherapeutic. Continue Lovenox until INR is greater than 2. 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 (9) Dysphagia, oropharyngeal phase Current Visit: Yes Status: Acute Assessment and plan: Keep nothing by mouth. Continue tube feeds. (10) Factor V Leiden Current Visit: Yes Status: Chronic Assessment and plan: On Coumadin for anticoagulation (11) Diarrhea Current Visit: Yes Status: Resolved Qualifiers: Diarrhea type: infectious Qualified Code(s): A09 - Infectious gastroenteritis and colitis, unspecified (12) Hypokalemia Current Visit: Yes Status: Resolved (13) Anemia Current Visit: Yes Status: Chronic Assessment and plan: Chronic and stable. Likely from nutritional deficiency. Qualifiers: Anemia type: other cause Other causes of anemia: other cause, not classified Qualified Code(s): D64.89 - Other specified anemias - Subjective Interval history: Patient is currently lying in bed. Appears comfortable. Does have abdominal distention. Tube feeds were held yesterday after patient had an episode of emesis. Since then she has not had any further episodes. - Constitutional Vitals: Temp Pulse Resp BP Pulse Ox 97.4 F L 77 16 98/61 98 05/20/17 10:15 05/20/17 10:15 05/20/17 10:35 05/20/17 10:35 05/20/17 10:35 General appearance: Present: cooperative, no acute distress, underweight Exam: At baseline - Respiratory Respiratory exam: Absent: accessory muscle use, rales, rhonchi, wheezes Additional comments: Coarse breath sounds bilaterally - GI/Abdominal GI/Abdominal exam: Present: distended, normal bowel sounds, soft, no peritoneal signs. Absent: tenderness - Extremities Exam Extremities exam: Present: warm, radial pulses palpable and symmetrical. Absent : calf tenderness, cyanotic, pedal edema - Neurological Exam Neurological exam: Absent: facial droop, speech deficit Additional comments: Cerebral palsy and spasticity in all 4 extremities - Skin Skin exam: Present: dry, intact Internal Medicine: Result - Labs CBC & Chem 7: 05/19/17 04:30 05/20/17 04:00 Labs: BMP 05/19/17 05/19/17 05/19/17 18:00 20:20 22:40 Sodium 126 L 127 L 126 L Potassium Chloride Carbon Dioxide BUN Creatinine Glucose Calcium 05/20/17 05/20/17 00:30 04:00 Sodium 127 L 129 L Potassium 3.7 Chloride 98 Carbon Dioxide 24 BUN 5 L Creatinine 0.56 L Glucose 86 Calcium 8.2 L - ABG Interpretation ABG results: ABG ABG pH 7.33 pH Units (7.32-7.45) 05/10/17 08:47 ABG pCO2 71 mmHg (35-45) H* 05/10/17 08:47 ABG pO2 84 mmHg (85-104) L 05/10/17 08:47 ABG O2 Saturation 95 % (95-98) 05/10/17 08:47 PT/INR, D-dimer PT 14.9 Seconds (9.4-12.1) H 05/20/17 04:00 D-Dimer 589 ng/mLFEU (0-500) H 05/05/17 16:10 - VTE Documentation of Mechanical Device: Intermittent pneumatic compression device Consult Discharge Plan - Plan Referrals: Chandan Serrano MD [Primary Care Provider] - Miah Jenkins MD [Partnered Physician] - 05/30/17 11:40 am
[2017-05-20] MEDS ORDERED: *HR* Warfarin 2 MG TABLET GTUBE ONE (18:00)
[2017-05-20] MEDS: Metoclopramide 10 MG/2 ML VIAL IVP SCH (18:42)
[2017-05-21] MEDS: *HR* Morphine 2 MG/ML SYRINGE IVP PRN (01:47)
[2017-05-21] MEDS: Metoclopramide 10 MG/2 ML VIAL IVP SCH ×3 (01:48→17:56)
[2017-05-21 06:05] LABS: Basophils % 0.7 %; Eosinophils # 0.2 K/mcL (0.0-0.6); Eosinophils % 4.3 %; Hemoglobin 8.2 g/dL (11.5-15.4); Immature Granulocytes % 0.5 % (0-4); Lymphocytes # 1.4 K/mcL (0.6-4.6); Lymphocytes % 31.3 %; Mean Corpuscular HGB Conc 31.5 g/dL (31.6-35.5); Mean Corpuscular Hemoglobin 25.9 pg (28.0-33.3); Mean Corpuscular Volume 82.3 fL (83.0-100.0); Mean Platelet Volume 11.8 fL (9.4-12.4); Monocytes # 0.8 K/mcL (0.0-1.3); Monocytes % 17.9 %; Platelet Count 296 K/mcL (140-400); Red Blood Count 3.16 M/mcL (3.82-4.97); Red Cell Distribution Width 17.7 % (11.5-14.5); Segmented Neutrophils % 45.3 %
[2017-05-21 06:18] LABS: INR 1.5; Prothrombin Time 16.5 Seconds (9.4-12.1)
[2017-05-21 06:38] LABS: BUN/Creatinine Ratio 6 (6-26); Calcium 8.6 mg/dL (8.6-10.8); Carbon Dioxide 27 mEq/L (19-29); Chloride 105 mEq/L (98-109); Glucose 111 mg/dL (70-99); Magnesium 1.3 mg/dL (1.6-2.6); Osmolality,Calculated 282 (280-300); Phosphorous 3.1 mg/dL (2.3-4.7); Potassium 3.7 mEq/L (3.5-4.5); eGFR For African Americans > 60 (> 60); eGFR For Non-African Americans > 60 (> 60)
[2017-05-21 06:39] LABS: Blood Urea Nitrogen 4 mg/dL (7-20); Sodium 137 mEq/L (136-145)
[2017-05-21] MEDS: Scopolamine Patch 1.5 MG PATCH.TD72 TD SCH (08:15)
[2017-05-21] MEDS: levoFLOXacin 500 MG TABLET PO SCH (09:30)
[2017-05-21] MEDS: metroNIDAZOLE 500 MG TABLET PO SCH ×3 (09:31→22:25)
[2017-05-21] MEDS: Famotidine 20 MG TABLET PO SCH (09:31)
[2017-05-21] MEDS: Baclofen 10 MG TABLET GTUBE SCH ×2 (09:31→22:25)
[2017-05-21] MEDS: *HR* Enoxaparin 30 MG/0.3 ML SYRINGE SQ SCH ×2 (09:36→17:57)
[2017-05-21] MEDS: Nystatin Cream 15 GM TUBE TP SCH ×3 (09:37→22:27)
[2017-05-21] MEDS ORDERED: Mag Hydrox/Al Hydrox/Simeth 30 ML UDC PO PRN (11:38)
--- NOTE | 2017-05-21 16:57 | Internal Med Progress Note ---
Date of Encounter: 05/21/17 Time of Encounter: 16:53 - Assessment and plan (1) Acute respiratory failure with hypoxia Current Visit: Yes Status: Resolved Assessment and plan: On baseline home oxygen especially at bedtime. Currently on room air (2) Anemia Current Visit: Yes Status: Chronic Assessment and plan: Chronic and stable. Likely from nutritional deficiency. Qualifiers: Anemia type: other cause Other causes of anemia: other cause, not classified Qualified Code(s): D64.89 - Other specified anemias (3) Aspiration pneumonia Current Visit: Yes Status: Acute Assessment and plan: Continue levofloxacin and Flagyl. Complete 4 more days of treatment. Qualifiers: Aspiration pneumonia type: unspecified Laterality: right Lung location: lower lobe of lung Qualified Code(s): J69.0 - Pneumonitis due to inhalation of food and vomit (4) Bilateral pulmonary embolism Current Visit: Yes Status: Acute Assessment and plan: On Coumadin. INR is subtherapeutic. Continue Lovenox until INR is greater than 2. (5) C. difficile diarrhea Current Visit: Yes Status: Acute Assessment and plan: On Flagyl. Diarrhea improving. 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 However we will resume now that sodium is normal and patient does tend to get hypernatremic. We will recheck BMP in the a.m. (8) Diarrhea Current Visit: Yes Status: Resolved Assessment and plan: Improving. Qualifiers: Diarrhea type: infectious Qualified Code(s): A09 - Infectious gastroenteritis and colitis, unspecified (9) Dysphagia, oropharyngeal phase Current Visit: Yes Status: Acute Assessment and plan: Keep nothing by mouth. Continue tube feeds. (10) Factor V Leiden Current Visit: Yes Status: Chronic Assessment and plan: On Coumadin for anticoagulation (11) Hypokalemia Current Visit: Yes Status: Resolved Assessment and plan: Likely due to diarrhea. We will replete orally and intravenously (12) Hyponatremia Current Visit: Yes Status: Acute Assessment and plan: Improved. Resume DDAVP for today. We will monitor sodium levels closely. (13) Protein-calorie malnutrition, moderate Current Visit: Yes Status: Acute Assessment and plan: She and is unable to tolerate Osmolite which is giving her significant abdominal distention. Because of this she is not able to meet her caloric needs. Discussed with nutrition, will order Vital HP @ 20 ml/hr- increase by 10 ml q 6 hours until goal of 50 ml/hr. if she can tolerate this formula, she can go home on Vital. See dietitian note for detail - Subjective Interval history: Parents present at bedside. She has been having some distention in the past day. It was noted to be worse yesterday. Tube feeding was held yesterday and then rate of feed was lowered but distention does still persist. Her parents do note that abdomen is slightly better than yesterday. Abdomen stayed distended despite Reglan administration. - Constitutional Vitals: Temp Pulse Resp BP Pulse Ox 96.0 F L 66 16 108/65 98 05/21/17 13:44 05/21/17 13:44 05/21/17 13:44 05/21/17 13:44 05/21/17 13:44 General appearance: Present: cooperative, no acute distress, underweight Internal Medicine: Result - Labs CBC & Chem 7: 05/21/17 05:55 05/21/17 05:55 Labs: Short CBC 05/21/17 Range/Units 05:55 WBC 4.4 (4.3-11.1) K/mcL Hgb 8.2 L (11.5-15.4) g/dL Hct 26.0 L (35.3-44.9) % Plt Count 296 (140-400) K/mcL Neutrophils # 2.0 (1.6-8.9) K/mcL BMP 05/21/17 05:55 Sodium 137 D Potassium 3.7 Chloride 105 Carbon Dioxide 27 BUN 4 L Creatinine 0.66 Glucose 111 H Calcium 8.6 - ABG Interpretation ABG results: ABG ABG pH 7.33 pH Units (7.32-7.45) 05/10/17 08:47 ABG pCO2 71 mmHg (35-45) H* 05/10/17 08:47 ABG pO2 84 mmHg (85-104) L 05/10/17 08:47 ABG O2 Saturation 95 % (95-98) 05/10/17 08:47 PT/INR, D-dimer PT 16.5 Seconds (9.4-12.1) H 05/21/17 05:55 D-Dimer 589 ng/mLFEU (0-500) H 05/05/17 16:10 - VTE Documentation of Mechanical Device: Intermittent pneumatic compression device Consult Discharge Plan - Plan Referrals: Chandan Serrano MD [Primary Care Provider] - Miah Jenkins MD [Partnered Physician] - 05/30/17 11:40 am
[2017-05-21] MEDS ORDERED: *HR* Warfarin 2 MG TABLET GTUBE ONE (18:00)
[2017-05-22] MEDS: Metoclopramide 10 MG/2 ML VIAL IVP SCH ×4 (01:25→18:04)
[2017-05-22] MEDS: *HR* Enoxaparin 30 MG/0.3 ML SYRINGE SQ SCH ×2 (05:42→18:05)
[2017-05-22 06:13] LABS: INR 1.7; Prothrombin Time 18.7 Seconds (9.4-12.1)
[2017-05-22 06:32] LABS: Basophils % 0.4 %; Eosinophils # 0.2 K/mcL (0.0-0.6); Hematocrit 25.8 % (35.3-44.9); Immature Granulocytes % 0.6 % (0-4); Lymphocytes # 1.5 K/mcL (0.6-4.6); Lymphocytes % 30.8 %; Mean Corpuscular Hemoglobin 25.6 pg (28.0-33.3); Mean Corpuscular Volume 82.4 fL (83.0-100.0); Mean Platelet Volume 10.9 fL (9.4-12.4); Monocytes # 0.7 K/mcL (0.0-1.3); Monocytes % 14.1 %; Neutrophils # 2.4 K/mcL (1.6-8.9); Platelet Count 360 K/mcL (140-400); Red Blood Count 3.13 M/mcL (3.82-4.97); Red Cell Distribution Width 18.1 % (11.5-14.5); Segmented Neutrophils % 49.1 %
[2017-05-22 06:42] LABS: Alanine Aminotransferase 13 Units/L (0-55); Albumin 2.5 g/dL (3.5-5.0); Albumin/Globulin Ratio 0.9 (1.1-2.2); Alkaline Phosphatase 63 Units/L (38-126); Aspartate Amino Transferase 20 Units/L (5-34); BUN/Creatinine Ratio 10 (6-26); Blood Urea Nitrogen 6 mg/dL (7-20); Calcium 8.5 mg/dL (8.6-10.8); Carbon Dioxide 27 mEq/L (19-29); Chloride 104 mEq/L (98-109); Globulin 2.9 g/dL (2.4-3.5); Glucose 97 mg/dL (70-99); Magnesium 1.4 mg/dL (1.6-2.6); Osmolality,Calculated 280 (280-300); Phosphorous 2.9 mg/dL (2.3-4.7); Sodium 136 mEq/L (136-145); Total Protein 5.4 g/dL (6.0-8.3); eGFR For African Americans > 60 (> 60); eGFR For Non-African Americans > 60 (> 60)
[2017-05-22 06:49] LABS: Bilirubin,Total < 0.2 mg/dL (0.2-1.2)
[2017-05-22] MEDS: levoFLOXacin 500 MG TABLET PO SCH (08:34)
[2017-05-22] MEDS: Baclofen 10 MG TABLET GTUBE SCH ×2 (08:34→21:52)
[2017-05-22] MEDS: Famotidine 20 MG TABLET PO SCH (08:34)
[2017-05-22] MEDS: metroNIDAZOLE 500 MG TABLET PO SCH (08:34)
[2017-05-22] MEDS: Nystatin Cream 15 GM TUBE TP SCH ×3 (08:35→21:53)
[2017-05-22] MEDS ORDERED: Mag Hydrox/Al Hydrox/Simeth 30 ML UDC PO ONE (10:15)
[2017-05-22] MEDS ORDERED: Mag Hydrox/Al Hydrox/Simeth 30 ML UDC GTUBE PRN (11:51)
[2017-05-22] MEDS: metroNIDAZOLE 500 MG TABLET GTUBE SCH ×2 (15:28→21:52)
[2017-05-22] MEDS ORDERED: *HR* Warfarin 2 MG TABLET GTUBE ONE (18:00)
--- NOTE | 2017-05-22 23:23 | Internal Med Progress Note ---
Date of Encounter: 05/22/17 Time of Encounter: 15:21 - Assessment and plan (1) Acute respiratory failure with hypoxia Current Visit: Yes Status: Resolved Assessment and plan: On baseline home oxygen especially at bedtime. Treating for aspiration and also has PEG tube to prevent further episodes. Consider swallow eval. - She still needs close monitoring while getting nutrition. She is on medications with narrow therapeutic windows and needs to avoid toxicity with change in fluid status, as well as close electrolyte monitoring. - Respiratory status needs regular assessment to monitor for improvement. - INR needs to be at therapeutic goal. - Monitor I/O, stool. (2) Abdominal distension, gaseous Current Visit: Yes Status: Acute Assessment and plan: Has been attempts to slow rates of TF which seem to be helping, along with changing formula yesterday. There is still distension that is only slightly better than yesterday. She does make stool regularly without gross hematochezia or melena. Will get abdominal series today to evaluate for possible ileus vs TF intolerance. (3) Anemia Current Visit: Yes Status: Chronic Assessment and plan: Chronic and stable. Likely from nutritional deficiency. Qualifiers: Anemia type: other cause Other causes of anemia: other cause, not classified Qualified Code(s): D64.89 - Other specified anemias (4) Aspiration pneumonia Current Visit: Yes Status: Acute Assessment and plan: Continue levofloxacin and Flagyl. Complete 4 more days of treatment. Qualifiers: Aspiration pneumonia type: unspecified Laterality: right Lung location: lower lobe of lung Qualified Code(s): J69.0 - Pneumonitis due to inhalation of food and vomit (5) Bilateral pulmonary embolism Current Visit: Yes Status: Acute Assessment and plan: On Coumadin. INR is subtherapeutic. Continue Lovenox until INR is greater than 2. (6) C. difficile diarrhea Current Visit: Yes Status: Acute Assessment and plan: On Flagyl. Diarrhea improving. 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 TF formula changed yesterday but patient still having distention. She does not show signs of abdominal pain. She is non- verbal at baseline. - Constitutional Vitals: Temp Pulse Resp BP Pulse Ox 98.2 F 84 17 123/61 95 05/22/17 19:28 05/22/17 19:28 05/22/17 19:28 05/22/17 19:28 05/22/17 19:28 General appearance: Present: cooperative, no acute distress, underweight Exam: - Respiratory Respiratory exam: Absent: accessory muscle use, rales, rhonchi, wheezes Additional comments: Coarse breath sounds bilaterally - GI/Abdominal GI/Abdominal exam: Present: distended, normal bowel sounds, soft, no peritoneal signs. Absent: tenderness - Extremities Exam Extremities exam: Present: warm, radial pulses palpable and symmetrical. Absent : calf tenderness, cyanotic, pedal edema - Neurological Exam Neurological exam: Absent: facial droop, speech deficit Additional comments: Cerebral palsy and spasticity in all 4 extremities - Skin Skin exam: Present: dry, intact Internal Medicine: Result - Labs CBC & Chem 7: 05/22/17 05:40 05/22/17 05:40 Labs: Short CBC 05/22/17 Range/Units 05:40 WBC 4.8 (4.3-11.1) K/mcL Hgb 8.0 L (11.5-15.4) g/dL Hct 25.8 L (35.3-44.9) % Plt Count 360 (140-400) K/mcL Neutrophils # 2.4 (1.6-8.9) K/mcL BMP 05/22/17 05:40 Sodium 136 Potassium 4.0 Chloride 104 Carbon Dioxide 27 BUN 6 L Creatinine 0.61 Glucose 97 Calcium 8.5 L Liver Function 05/22/17 Range/Units 05:40 Total Bilirubin < 0.2 L (0.2-1.2) mg/dL AST 20 (5-34) Units/L ALT 13 (0-55) Units/L Alkaline Phosphatase 63 (38-126) Units/L Albumin 2.5 L (3.5-5.0) g/dL - ABG Interpretation ABG results: ABG ABG pH 7.33 pH Units (7.32-7.45) 05/10/17 08:47 ABG pCO2 71 mmHg (35-45) H* 05/10/17 08:47 ABG pO2 84 mmHg (85-104) L 05/10/17 08:47 ABG O2 Saturation 95 % (95-98) 05/10/17 08:47 PT/INR, D-dimer PT 18.7 Seconds (9.4-12.1) H 05/22/17 05:40 D-Dimer 589 ng/mLFEU (0-500) H 05/05/17 16:10 - Impressions Impressions Chest/Abdomen X-ray 05/22/17 10:17 IMPRESSION: Persistent gaseous distention of small and large bowel most consistent with ileus. No free air or significant change compared to prior. D/ / Irina Epstein MD / Irina Epstein MD Interpreting Provider: Irina Epstein MD - VTE Documentation of Mechanical Device: Intermittent pneumatic compression device Consult Discharge Plan - Plan Referrals: Chandan Serrano MD [Primary Care Provider] - Miah Jenkins MD [Partnered Physician] - 05/30/17 11:40 am
[2017-05-23] MEDS: Metoclopramide 10 MG/2 ML VIAL IVP SCH ×5 (01:25→23:49)
[2017-05-23 05:08] LABS: Basophils % 0.5 %; Eosinophils # 0.2 K/mcL (0.0-0.6); Eosinophils % 3.8 %; Hematocrit 26.1 % (35.3-44.9); Hemoglobin 8.3 g/dL (11.5-15.4); Immature Granulocytes % 0.7 % (0-4); Lymphocytes # 1.7 K/mcL (0.6-4.6); Lymphocytes % 28.3 %; Mean Corpuscular HGB Conc 31.8 g/dL (31.6-35.5); Mean Corpuscular Volume 81.8 fL (83.0-100.0); Mean Platelet Volume 10.5 fL (9.4-12.4); Monocytes # 0.7 K/mcL (0.0-1.3); Monocytes % 11.8 %; Neutrophils # 3.3 K/mcL (1.6-8.9); Platelet Count 387 K/mcL (140-400); Red Blood Count 3.19 M/mcL (3.82-4.97); Red Cell Distribution Width 17.8 % (11.5-14.5); Segmented Neutrophils % 54.9 %
[2017-05-23 05:13] LABS: INR 1.7; Prothrombin Time 18.8 Seconds (9.4-12.1)
[2017-05-23 05:26] LABS: Alanine Aminotransferase 12 Units/L (0-55); Albumin 2.5 g/dL (3.5-5.0); Albumin/Globulin Ratio 0.8 (1.1-2.2); Alkaline Phosphatase 61 Units/L (38-126); Aspartate Amino Transferase 18 Units/L (5-34); BUN/Creatinine Ratio 15 (6-26); Bilirubin,Total 0.2 mg/dL (0.2-1.2); Blood Urea Nitrogen 9 mg/dL (7-20); Calcium 8.4 mg/dL (8.6-10.8); Carbon Dioxide 28 mEq/L (19-29); Chloride 101 mEq/L (98-109); Globulin 3.1 g/dL (2.4-3.5); Glucose 97 mg/dL (70-99); Osmolality,Calculated 277 (280-300); Potassium 3.9 mEq/L (3.5-4.5); Sodium 134 mEq/L (136-145); Total Protein 5.6 g/dL (6.0-8.3); eGFR For African Americans > 60 (> 60); eGFR For Non-African Americans > 60 (> 60)
[2017-05-23] MEDS: *HR* Enoxaparin 30 MG/0.3 ML SYRINGE SQ SCH ×2 (06:25→20:03)
[2017-05-23] MEDS: metroNIDAZOLE 500 MG TABLET GTUBE SCH ×3 (09:53→20:04)
[2017-05-23] MEDS: levoFLOXacin 500 MG TABLET GTUBE SCH (09:53)
[2017-05-23] MEDS: Famotidine 20 MG TABLET GTUBE SCH (09:53)
[2017-05-23] MEDS: Nystatin Cream 15 GM TUBE TP SCH ×3 (09:53→20:06)
[2017-05-23] MEDS: Baclofen 10 MG TABLET GTUBE SCH ×2 (09:53→20:04)
[2017-05-23] MEDS ORDERED: D10% in Water 500 ML IVC PRN (11:26)
--- NOTE | 2017-05-23 12:23 | Gastroenterology Progress Note ---
<Jess Graves - Last Filed: 05/23/17 12:20> Date of Encounter: 05/23/17 Time of Encounter: 09:30 - Assessment and plan (1) Ileus Current Visit: Yes Status: Acute Assessment and plan: Pt is status post peg tube placement. KUB shows ileus. Tube feedings have been changed and rate has been slowed. She is on reglan. Bowel sounds are active and she is passing liquid stools. Her parents report abdomen is softer than yesterday. There is no vomiting. Will monitor. - Time Spent With Patient Total time spent is greater than 50% in coordination of care (as documented) at patient's floor/unit and/or counseling patient: - Subjective Interval history: PaPt is status post peg tube placement 05/09/17. She was started on tube feeding but has had increased abdominal bloating. She has CP and is mostly nonverbal. Parents are at bedside and states she sometimes appears uncomfortable but does not act like she is in pain. Nurses report liquid BMs without bleeding. Nursing denies any residual tube feeds or back flow of tube feedings when administering meds. No vomiting reported. KUB was consistent with ileus. No fevers reported. - Constitutional Vitals: Temp Pulse Resp BP Pulse Ox 97.9 F 92 18 121/72 94 05/23/17 11:50 05/23/17 11:50 05/23/17 11:50 05/23/17 11:50 05/23/17 11:50 General appearance: Present: thin Exam: CONSTITUTIONAL:~alert, no acute distress.~HEAD:~normocephalic.~EYES:~no jaundice.~NECK:~no obvious swelling.~HEART:~regular rate and rhythm, no murmurs. ~LUNGS:~fair air entry.~ABDOMEN:~distended and round but soft, nontender, no masses palpable, no organomegaly.~RECTAL EXAM:~Deferred.~EXTREMITIES:~bilater uper and lower extremity contractures noted, no edema, SKIN:~no stigmata of chronic liver disease.~NEUROLOGIC:~pt is alert but nonverbal, parents report is at baseline~~~~ Results - Labs CBC & Chem 7: 05/23/17 04:34 05/23/17 04:34 Labs: Last Result Calcium 8.4 mg/dL (8.6-10.8) L 05/23/17 04:34 Troponin I 0.00 ng/mL (0-0.03) 05/05/17 16:10 Entire Visit Hgb 8.3 g/dL (11.5-15.4) L 05/23/17 04:34 Hct 26.1 % (35.3-44.9) L 05/23/17 04:34 PT 18.8 Seconds (9.4-12.1) H 05/23/17 04:34 Total Bilirubin 0.2 mg/dL (0.2-1.2) 05/23/17 04:34 AST 18 Units/L (5-34) 05/23/17 04:34 ALT 12 Units/L (0-55) 05/23/17 04:34 - ABG ABG results: ABG ABG pH 7.33 pH Units (7.32-7.45) 05/10/17 08:47 ABG pCO2 71 mmHg (35-45) H* 05/10/17 08:47 ABG pO2 84 mmHg (85-104) L 05/10/17 08:47 ABG O2 Saturation 95 % (95-98) 05/10/17 08:47 PT/INR, D-dimer PT 18.8 Seconds (9.4-12.1) H 05/23/17 04:34 D-Dimer 589 ng/mLFEU (0-500) H 05/05/17 16:10 - Impressions Impressions Chest/Abdomen X-ray 05/22/17 10:17 IMPRESSION: Persistent gaseous distention of small and large bowel most consistent with ileus. No free air or significant change compared to prior. D/ / Irina Epstein MD / Irina Epstein MD Interpreting Provider: Irina Epstein MD - VTE Documentation of Mechanical Device: Intermittent pneumatic compression device Consult Discharge Plan - Plan Referrals: Chandan Serrano MD [Primary Care Provider] - Miah Jenkins MD [Partnered Physician] - 05/30/17 11:40 am <Singh Michel - Last Filed: 05/24/17 08:05> Date of Encounter: 05/24/17 Time of Encounter: 14:00 - Time Spent With Patient Total time spent is greater than 50% in coordination of care (as documented) at patient's floor/unit and/or counseling patient: - Constitutional Vitals: Temp Pulse Resp BP Pulse Ox 96.9 F L 52 18 112/74 98 05/24/17 05:05 05/24/17 05:05 05/24/17 05:05 05/24/17 05:05 05/24/17 05:05 Results - Labs CBC & Chem 7: 05/24/17 05:35 05/24/17 05:35 Labs: Last Result Calcium 8.6 mg/dL (8.6-10.8) 05/24/17 05:35 Troponin I 0.00 ng/mL (0-0.03) 05/05/17 16:10 Triglycerides 98 mg/dL (< 150) 05/24/17 05:35 Entire Visit Hgb 8.0 g/dL (11.5-15.4) L 05/24/17 05:35 Hct 25.4 % (35.3-44.9) L 05/24/17 05:35 PT 19.8 Seconds (9.4-12.1) H 05/24/17 05:35 Total Bilirubin 0.2 mg/dL (0.2-1.2) 05/24/17 05:35 AST 17 Units/L (5-34) 05/24/17 05:35 ALT 11 Units/L (0-55) 05/24/17 05:35 - ABG ABG results: ABG ABG pH 7.33 pH Units (7.32-7.45) 05/10/17 08:47 ABG pCO2 71 mmHg (35-45) H* 05/10/17 08:47 ABG pO2 84 mmHg (85-104) L 05/10/17 08:47 ABG O2 Saturation 95 % (95-98) 05/10/17 08:47 PT/INR, D-dimer PT 19.8 Seconds (9.4-12.1) H 05/24/17 05:35 D-Dimer 589 ng/mLFEU (0-500) H 05/05/17 16:10 - Attending Attestation I examined this patient and my medical decision-making was reviewed with the Resident Physician. I agree with the documented findings, disposition and treatment plan as described except to the extent set forth below.
[2017-05-23] MEDS ORDERED: Clinimix E 5%-15% SOLUTION 2,000 ML with MVI, adult with vitamin K 10 ML IVC SCH (17:00)
[2017-05-23] MEDS ORDERED: *HR* Warfarin 2.5 MG TABLET GTUBE ONE (18:00)
--- NOTE | 2017-05-23 21:58 | Internal Med Progress Note ---
Date of Encounter: 05/23/17 Time of Encounter: 13:56 - Assessment and plan (1) Discharge planning issues Current Visit: Yes Status: Acute Assessment and plan: - Ileus needs improvement to meet caloric demands - She is on medications with narrow therapeutic windows and needs to avoid toxicity with change in fluid and metabolism status - INR needs to be at therapeutic goal. Currently being adjusted daily (2) Ileus Current Visit: Yes Status: Acute Assessment and plan: As seen on abdominal series. Given complexity of situation, GI was consulted and has evaluated patient, recommendations appreciated. TF lowered to prevent further distention. (3) Acute respiratory failure with hypoxia Current Visit: Yes Status: Resolved Assessment and plan: On baseline home oxygen . Treating for aspiration and also has PEG tube to prevent further episodes. (4) Protein-calorie malnutrition, moderate Current Visit: Yes Status: Acute Assessment and plan: Currently has ileus preventing adequate nutrition and also questionably TF intolerance. Prealbumin of 15 which lower normal limit, is reflective of her current malnutrition status. Check daily mg/phos and replace as needed to provide support, prevention of refeeding syndrome. (5) Anemia Current Visit: Yes Status: Chronic Assessment and plan: Chronic and stable. Likely from nutritional deficiency. Qualifiers: Anemia type: other cause Other causes of anemia: other cause, not classified Qualified Code(s): D64.89 - Other specified anemias (6) Aspiration pneumonia Current Visit: Yes Status: Acute Assessment and plan: Continue levofloxacin and Flagyl. Complete with 3 more days of treatment. Qualifiers: Aspiration pneumonia type: unspecified Laterality: right Lung location: lower lobe of lung Qualified Code(s): J69.0 - Pneumonitis due to inhalation of food and vomit (7) Bilateral pulmonary embolism Current Visit: Yes Status: Acute Assessment and plan: On Coumadin. INR is subtherapeutic. Continue Lovenox until INR is greater than 2. (8) C. difficile diarrhea Current Visit: Yes Status: Acute Assessment and plan: On Flagyl. Diarrhea improving. 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 However we will resume now that sodium is normal and patient does tend to get hypernatremic. We will recheck BMP in the a.m. (11) Diarrhea Current Visit: Yes Status: Resolved Assessment and plan: Improving. Qualifiers: Diarrhea type: infectious Qualified Code(s): A09 - Infectious gastroenteritis and colitis, unspecified (12) Dysphagia, oropharyngeal phase Current Visit: Yes Status: Acute Assessment and plan: Keep nothing by mouth. Continue tube feeds. (13) Factor V Leiden Current Visit: Yes Status: Chronic Assessment and plan: On Coumadin for anticoagulation (14) Hypokalemia Current Visit: Yes Status: Resolved Assessment and plan: Likely due to diarrhea. We will replete orally and intravenously (15) Hyponatremia Current Visit: Yes Status: Acute Assessment and plan: Sodium 134, will continue to hold DDAVP and closely monitor. - Subjective Interval history: Parents present at bedside. No acute events overnight or throughout AM. Distention unchanged but abdomen still soft and she is still making stool. - Constitutional Vitals: Temp Pulse Resp BP Pulse Ox 98.2 F 80 16 118/68 96 05/23/17 20:04 05/23/17 20:04 05/23/17 20:04 05/23/17 20:04 05/23/17 20:04 General appearance: Present: cooperative, no acute distress, underweight Exam: Gen: nonverbal at baseline, no acute distress, awake, alert CVS: RRR Lungs: CTAB Abd: soft, + distension, no discomfort with palpation, normoactive bowel sounds Ext: lower extremity deformities consistent with cerebral palsy, no edema. Internal Medicine: Result - Labs CBC & Chem 7: 05/23/17 04:34 05/23/17 04:34 Labs: Short CBC 05/23/17 Range/Units 04:34 WBC 6.0 (4.3-11.1) K/mcL Hgb 8.3 L (11.5-15.4) g/dL Hct 26.1 L (35.3-44.9) % Plt Count 387 (140-400) K/mcL Neutrophils # 3.3 (1.6-8.9) K/mcL BMP 05/23/17 04:34 Sodium 134 L Potassium 3.9 Chloride 101 Carbon Dioxide 28 BUN 9 Creatinine 0.61 Glucose 97 Calcium 8.4 L Liver Function 05/23/17 Range/Units 04:34 Total Bilirubin 0.2 (0.2-1.2) mg/dL AST 18 (5-34) Units/L ALT 12 (0-55) Units/L Alkaline Phosphatase 61 (38-126) Units/L Albumin 2.5 L (3.5-5.0) g/dL - ABG Interpretation ABG results: ABG ABG pH 7.33 pH Units (7.32-7.45) 05/10/17 08:47 ABG pCO2 71 mmHg (35-45) H* 05/10/17 08:47 ABG pO2 84 mmHg (85-104) L 05/10/17 08:47 ABG O2 Saturation 95 % (95-98) 05/10/17 08:47 PT/INR, D-dimer PT 18.8 Seconds (9.4-12.1) H 05/23/17 04:34 D-Dimer 589 ng/mLFEU (0-500) H 05/05/17 16:10 - VTE Documentation of Mechanical Device: Intermittent pneumatic compression device Consult Discharge Plan - Plan Referrals: Chandan Serrano MD [Primary Care Provider] - Miah Jenkins MD [Partnered Physician] - 05/30/17 11:40 am
[2017-05-24] MEDS: *HR* Enoxaparin 30 MG/0.3 ML SYRINGE SQ SCH ×2 (05:25→16:50)
[2017-05-24] MEDS: Metoclopramide 10 MG/2 ML VIAL IVP SCH ×3 (05:25→12:42)
[2017-05-24 05:51] LABS: Basophils % 0.5 %; Eosinophils # 0.2 K/mcL (0.0-0.6); Hematocrit 25.4 % (35.3-44.9); Immature Granulocytes % 0.3 % (0-4); Lymphocytes # 1.7 K/mcL (0.6-4.6); Lymphocytes % 28.7 %; Mean Corpuscular HGB Conc 31.5 g/dL (31.6-35.5); Mean Corpuscular Hemoglobin 25.7 pg (28.0-33.3); Mean Corpuscular Volume 81.7 fL (83.0-100.0); Mean Platelet Volume 10.2 fL (9.4-12.4); Monocytes # 0.7 K/mcL (0.0-1.3); Monocytes % 10.9 %; Neutrophils # 3.3 K/mcL (1.6-8.9); Nucleated Red Blood Cells 0.3 /100 WBC (0); Platelet Count 399 K/mcL (140-400); Red Blood Count 3.11 M/mcL (3.82-4.97); Red Cell Distribution Width 17.6 % (11.5-14.5); Segmented Neutrophils % 55.6 %
[2017-05-24 05:54] LABS: INR 1.8; Prothrombin Time 19.8 Seconds (9.4-12.1)
[2017-05-24 05:59] LABS: Magnesium 1.3 mg/dL (1.6-2.6); Phosphorous 3.5 mg/dL (2.3-4.7)
[2017-05-24 06:02] LABS: Alanine Aminotransferase 11 Units/L (0-55); Albumin 2.6 g/dL (3.5-5.0); Albumin/Globulin Ratio 0.9 (1.1-2.2); Alkaline Phosphatase 56 Units/L (38-126); Aspartate Amino Transferase 17 Units/L (5-34); BUN/Creatinine Ratio 18 (6-26); Bilirubin,Total 0.2 mg/dL (0.2-1.2); Blood Urea Nitrogen 11 mg/dL (7-20); Calcium 8.6 mg/dL (8.6-10.8); Carbon Dioxide 27 mEq/L (19-29); Chloride 100 mEq/L (98-109); Glucose 91 mg/dL (70-99); Osmolality,Calculated 271 (280-300); Sodium 131 mEq/L (136-145); Total Protein 5.6 g/dL (6.0-8.3); eGFR For African Americans > 60 (> 60); eGFR For Non-African Americans > 60 (> 60)
[2017-05-24] MEDS: Famotidine 20 MG TABLET GTUBE SCH (09:43)
[2017-05-24] MEDS: Baclofen 10 MG TABLET GTUBE SCH ×2 (09:44→20:27)
[2017-05-24] MEDS: metroNIDAZOLE 500 MG TABLET GTUBE SCH ×3 (09:44→20:27)
[2017-05-24] MEDS: levoFLOXacin 500 MG TABLET GTUBE SCH (09:44)
[2017-05-24] MEDS: Scopolamine Patch 1.5 MG PATCH.TD72 TD SCH (09:44)
[2017-05-24] MEDS: 0.9 % Sodium Chloride 1,000 ML IVC SCH (09:45)
[2017-05-24] MEDS: Nystatin Cream 15 GM TUBE TP SCH ×3 (09:53→20:28)
[2017-05-24 10:02] LABS: INR 1.8; Prothrombin Time 19.9 Seconds (9.4-12.1)
[2017-05-24] MEDS: Metoclopramide 10 MG/10 ML UD.LIQ GTUBE SCH ×2 (16:49→23:58)
[2017-05-24] MEDS ORDERED: Clinimix E 5%-15% SOLUTION 2,000 ML with MVI, adult with vitamin K 10 ML, Magnesium S... IVC SCH (17:00)
[2017-05-24] MEDS: Acetylcysteine 10% 2 ML INHSOL IH SCH ×2 (17:36→23:59)
[2017-05-24] MEDS ORDERED: *HR* Warfarin 2.5 MG TABLET GTUBE ONE (18:00)
--- NOTE | 2017-05-24 23:21 | Internal Med Progress Note ---
Date of Encounter: 05/24/17 Time of Encounter: 12:19 - Assessment and plan (1) Discharge planning issues Current Visit: Yes Status: Acute Assessment and plan: - Ileus needs improvement - caloric demands not at goal - She is on medications with narrow therapeutic windows and needs to avoid toxicity with change in fluid and metabolism status - INR needs to be at therapeutic goal. Currently being adjusted daily (2) Ileus Current Visit: Yes Status: Acute Assessment and plan: Given complexity of situation, GI was consulted and has evaluated patient, recommendations appreciated. Today distention is fairly unchanged since yesterday. (3) Acute respiratory failure with hypoxia Current Visit: Yes Status: Resolved Assessment and plan: On baseline home oxygen . Treating for aspiration and also has PEG tube to prevent further episodes. (4) Protein-calorie malnutrition, moderate Current Visit: Yes Status: Acute Assessment and plan: Currently has ileus preventing adequate nutrition and also questionably TF intolerance. Prealbumin of 15 which lower normal limit, is reflective of her current malnutrition status. Check daily mg/phos and replace as needed to provide support, prevention of refeeding syndrome. (5) Anemia Current Visit: Yes Status: Chronic Assessment and plan: Chronic and stable. Likely from nutritional deficiency. Qualifiers: Anemia type: other cause Other causes of anemia: other cause, not classified Qualified Code(s): D64.89 - Other specified anemias (6) Aspiration pneumonia Current Visit: Yes Status: Acute Assessment and plan: Continue levofloxacin and Flagyl. Complete with 3 more days of treatment. Qualifiers: Aspiration pneumonia type: unspecified Laterality: right Lung location: lower lobe of lung Qualified Code(s): J69.0 - Pneumonitis due to inhalation of food and vomit (7) Bilateral pulmonary embolism Current Visit: Yes Status: Acute Assessment and plan: On Coumadin. INR is subtherapeutic. Continue Lovenox until INR is greater than 2. (8) C. difficile diarrhea Current Visit: Yes Status: Acute Assessment and plan: On Flagyl. Diarrhea improving. 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 However we will resume now that sodium is normal and patient does tend to get hypernatremic. We will recheck BMP in the a.m. (11) Diarrhea Current Visit: Yes Status: Resolved Assessment and plan: Improving. Qualifiers: Diarrhea type: infectious Qualified Code(s): A09 - Infectious gastroenteritis and colitis, unspecified (12) Dysphagia, oropharyngeal phase Current Visit: Yes Status: Acute Assessment and plan: Keep nothing by mouth. Continue tube feeds. (13) Factor V Leiden Current Visit: Yes Status: Chronic Assessment and plan: On Coumadin for anticoagulation (14) Hypokalemia Current Visit: Yes Status: Resolved Assessment and plan: Likely due to diarrhea. We will replete orally and intravenously (15) Hyponatremia Current Visit: Yes Status: Acute Assessment and plan: Sodium 134, will continue to hold DDAVP and closely monitor. - Subjective Interval history: Parents present at bedside. No acute events overnight or throughout AM. Distention unchanged but abdomen still soft and she is still making stool. Mother notes that patient is having difficulty clearing secretions. - Constitutional Vitals: Temp Pulse Resp BP Pulse Ox 99.3 F 66 16 149/72 97 05/24/17 19:42 05/24/17 19:42 05/24/17 19:42 05/24/17 19:42 05/24/17 19:42 General appearance: Present: cooperative, no acute distress, underweight Exam: - Respiratory Respiratory exam: Absent: accessory muscle use, rales, rhonchi, wheezes Additional comments: Coarse breath sounds bilaterally - GI/Abdominal GI/Abdominal exam: Present: distended, normal bowel sounds, soft, no peritoneal signs. Absent: tenderness - Extremities Exam Extremities exam: Present: warm, radial pulses palpable and symmetrical. Absent : calf tenderness, cyanotic, pedal edema - Neurological Exam Neurological exam: Absent: facial droop, speech deficit Additional comments: Cerebral palsy and spasticity in all 4 extremities - Skin Skin exam: Present: dry, intact Internal Medicine: Result - Labs CBC & Chem 7: 05/24/17 05:35 05/24/17 05:35 Labs: Short CBC 05/24/17 Range/Units 05:35 WBC 6.0 (4.3-11.1) K/mcL Hgb 8.0 L (11.5-15.4) g/dL Hct 25.4 L (35.3-44.9) % Plt Count 399 (140-400) K/mcL Neutrophils # 3.3 (1.6-8.9) K/mcL BMP 05/24/17 05:35 Sodium 131 L Potassium 4.0 Chloride 100 Carbon Dioxide 27 BUN 11 Creatinine 0.61 Glucose 91 Calcium 8.6 Liver Function 05/24/17 Range/Units 05:35 Total Bilirubin 0.2 (0.2-1.2) mg/dL AST 17 (5-34) Units/L ALT 11 (0-55) Units/L Alkaline Phosphatase 56 (38-126) Units/L Albumin 2.6 L (3.5-5.0) g/dL - ABG Interpretation ABG results: ABG ABG pH 7.33 pH Units (7.32-7.45) 05/10/17 08:47 ABG pCO2 71 mmHg (35-45) H* 05/10/17 08:47 ABG pO2 84 mmHg (85-104) L 05/10/17 08:47 ABG O2 Saturation 95 % (95-98) 05/10/17 08:47 PT/INR, D-dimer PT 19.9 Seconds (9.4-12.1) H 05/24/17 09:40 D-Dimer 589 ng/mLFEU (0-500) H 05/05/17 16:10 - VTE Documentation of Mechanical Device: Intermittent pneumatic compression device Consult Discharge Plan - Plan Referrals: Chandan Serrano MD [Primary Care Provider] - Miah Jenkins MD [Partnered Physician] - 05/30/17 11:40 am
[2017-05-24] MEDS: Levalbuterol Neb 0.63 MG/3 ML IH PRN (23:58)
[2017-05-25] MEDS: 0.9 % Sodium Chloride 1,000 ML IVC SCH
[2017-05-25] MEDS: *HR* Enoxaparin 30 MG/0.3 ML SYRINGE SQ SCH ×2 (05:01→17:28)
[2017-05-25] MEDS: Metoclopramide 10 MG/10 ML UD.LIQ GTUBE SCH ×3 (05:02→17:29)
[2017-05-25 05:27] LABS: Basophils % 0.4 %; Eosinophils # 0.3 K/mcL (0.0-0.6); Eosinophils % 5.5 %; Hematocrit 22.9 % (35.3-44.9); Hemoglobin 7.3 g/dL (11.5-15.4); Immature Granulocytes % 0.2 % (0-4); Lymphocytes # 1.4 K/mcL (0.6-4.6); Lymphocytes % 28.4 %; Mean Corpuscular HGB Conc 31.9 g/dL (31.6-35.5); Mean Corpuscular Hemoglobin 26.4 pg (28.0-33.3); Monocytes # 0.7 K/mcL (0.0-1.3); Monocytes % 13.9 %; Neutrophils # 2.5 K/mcL (1.6-8.9); Platelet Count 344 K/mcL (140-400); Red Blood Count 2.76 M/mcL (3.82-4.97); Red Cell Distribution Width 17.8 % (11.5-14.5); Segmented Neutrophils % 51.6 %
[2017-05-25 05:32] LABS: INR 1.9; Prothrombin Time 20.6 Seconds (9.4-12.1)
[2017-05-25 05:38] LABS: BUN/Creatinine Ratio 24 (6-26); Blood Urea Nitrogen 12 mg/dL (7-20); Carbon Dioxide 20 mEq/L (19-29); Chloride 112 mEq/L (98-109); Glucose 100 mg/dL (70-99); Magnesium 1.8 mg/dL (1.6-2.6); Osmolality,Calculated 286 (280-300); Potassium 3.4 mEq/L (3.5-4.5); eGFR For African Americans > 60 (> 60); eGFR For Non-African Americans > 60 (> 60)
[2017-05-25 05:39] LABS: Calcium 6.9 mg/dL (8.6-10.8); Sodium 138 mEq/L (136-145)
[2017-05-25 05:43] LABS: Platelet Estimate Normal (Normal); Reactive Lymphocytes Present (Not Present)
[2017-05-25] MEDS: Levalbuterol Neb 0.63 MG/3 ML IH PRN ×3 (08:20→22:36)
[2017-05-25] MEDS: Acetylcysteine 10% 2 ML INHSOL IH SCH ×3 (08:21→22:36)
[2017-05-25] MEDS: Famotidine 20 MG TABLET GTUBE SCH (09:13)
[2017-05-25] MEDS: levoFLOXacin 500 MG TABLET GTUBE SCH (09:14)
[2017-05-25] MEDS: Nystatin Cream 15 GM TUBE TP SCH ×3 (09:14→20:19)
[2017-05-25] MEDS: Baclofen 10 MG TABLET GTUBE SCH ×2 (09:14→20:10)
[2017-05-25] MEDS: metroNIDAZOLE 500 MG TABLET GTUBE SCH ×3 (12:55→20:10)
[2017-05-25] MEDS ORDERED: Clinimix E 5%-15% SOLUTION 2,000 ML with MVI, adult with vitamin K 10 ML, Magnesium S... IVC SCH (17:00)
[2017-05-25] MEDS: Vancomycin Oral Soln 250 MG/5 ML UDC GTUBE SCH ×2 (17:29→20:10)
[2017-05-25] MEDS ORDERED: *HR* Warfarin 2.5 MG TABLET GTUBE ONE (18:00)
--- NOTE | 2017-05-25 23:25 | Internal Med Progress Note ---
Date of Encounter: 05/25/17 Time of Encounter: 15:23 - Assessment and plan (1) Ileus Current Visit: Yes Status: Acute Assessment and plan: Distention difficult to appreciate improvement. TF held for now. Distention attempts to relieve gas via PEG tube. Repeat KUB today. Add PO Vanc incase this is related to failed C diff therapy. (2) C. difficile diarrhea Current Visit: Yes Status: Acute Assessment and plan: On Flagyl. Add Oral Vanc 05/25 as there is still abdominal distention and will double cover for C diff. (3) Acute respiratory failure with hypoxia Current Visit: Yes Status: Resolved Assessment and plan: On baseline home oxygen . Treating for aspiration and also has PEG tube to prevent further episodes. (4) Discharge planning issues Current Visit: Yes Status: Acute Assessment and plan: - Ileus needs improvement - caloric demands not at goal - She is on medications with narrow therapeutic windows and needs to avoid toxicity with change in fluid and metabolism status (5) Protein-calorie malnutrition, moderate Current Visit: Yes Status: Acute Assessment and plan: Currently has ileus preventing adequate nutrition and also questionably TF intolerance. Prealbumin of 15 which is below normal, is reflective of her current malnutrition status. Continue TPN. Will restart TF when patient tolerates. (6) Anemia Current Visit: Yes Status: Chronic Assessment and plan: Chronic and stable. Likely from nutritional deficiency. Qualifiers: Anemia type: other cause Other causes of anemia: other cause, not classified Qualified Code(s): D64.89 - Other specified anemias (7) Aspiration pneumonia Current Visit: Yes Status: Acute Assessment and plan: Continue levofloxacin and Flagyl. Complete with 3 more days of treatment. Qualifiers: Aspiration pneumonia type: unspecified Laterality: right Lung location: lower lobe of lung Qualified Code(s): J69.0 - Pneumonitis due to inhalation of food and vomit (8) Bilateral pulmonary embolism Current Visit: Yes Status: Acute Assessment and plan: On Coumadin. 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 However we will resume now that sodium is normal and patient does tend to get hypernatremic. We will recheck BMP in the a.m. (11) Dysphagia, oropharyngeal phase Current Visit: Yes Status: Acute (12) Factor V Leiden Current Visit: Yes Status: Chronic Assessment and plan: On Coumadin for anticoagulation (13) Hypokalemia Current Visit: Yes Status: Resolved Assessment and plan: Likely due to diarrhea. We will replete orally and intravenously (14) Hyponatremia Current Visit: Yes Status: Acute Assessment and plan: Sodium 134, will continue to hold DDAVP and closely monitor. - Subjective Interval history: Parents present at bedside. No acute events overnight or throughout AM. Distention unchanged, she exhibits no distress. Abdomen still soft and she is still making stool. Mucomyst was started yesterday for respiratory secretions and mother states it makes patient more comfortable. - Constitutional Vitals: Temp Pulse Resp BP Pulse Ox 97.9 F 65 18 115/75 96 05/25/17 19:09 05/25/17 19:09 05/25/17 22:37 05/25/17 19:09 05/25/17 22:37 Exam: General appearance: Present: cooperative, no acute distress, underweight Exam: - Respiratory Respiratory exam: Absent: accessory muscle use, rales, rhonchi, wheezes Additional comments: Coarse breath sounds bilaterally - GI/Abdominal GI/Abdominal exam: Present: distended, normal bowel sounds, soft, no peritoneal signs. Absent: tenderness - Extremities Exam Extremities exam: Present: warm, radial pulses palpable and symmetrical. Absent : calf tenderness, cyanotic, pedal edema - Neurological Exam Neurological exam: Absent: facial droop, speech deficit Additional comments: Cerebral palsy and spasticity in all 4 extremities - Skin Skin exam: Present: dry, intact Internal Medicine: Result - Labs CBC & Chem 7: 05/25/17 05:00 05/25/17 05:00 Labs: Short CBC 05/25/17 Range/Units 05:00 WBC 4.9 (4.3-11.1) K/mcL Hgb 7.3 L (11.5-15.4) g/dL Hct 22.9 L (35.3-44.9) % Plt Count 344 (140-400) K/mcL Neutrophils # 2.5 (1.6-8.9) K/mcL BMP 05/25/17 05:00 Sodium 138 D Potassium 3.4 L Chloride 112 H Carbon Dioxide 20 BUN 12 Creatinine 0.50 L Glucose 100 H Calcium 6.9 L D - ABG Interpretation ABG results: ABG ABG pH 7.33 pH Units (7.32-7.45) 05/10/17 08:47 ABG pCO2 71 mmHg (35-45) H* 05/10/17 08:47 ABG pO2 84 mmHg (85-104) L 05/10/17 08:47 ABG O2 Saturation 95 % (95-98) 05/10/17 08:47 PT/INR, D-dimer PT 20.6 Seconds (9.4-12.1) H 05/25/17 05:00 D-Dimer 589 ng/mLFEU (0-500) H 05/05/17 16:10 - Impressions Impressions KUB X-Ray 05/25/17 16:51 IMPRESSION: Persistent diffuse gaseous distention of bowel, in keeping with patient's history of ileus. D/ / Mikal Stewart MD / Mikal Stewart MD Interpreting Provider: Mikal Stewart MD - VTE Documentation of Mechanical Device: Intermittent pneumatic compression device Consult Discharge Plan - Plan Referrals: Chandan Serrano MD [Primary Care Provider] - Miah Jenkins MD [Partnered Physician] - 05/30/17 11:40 am
[2017-05-26] MEDS: Metoclopramide 10 MG/10 ML UD.LIQ GTUBE SCH ×4 (00:26→17:09)
[2017-05-26] MEDS: *HR* Enoxaparin 30 MG/0.3 ML SYRINGE SQ SCH ×2 (05:24→17:09)
[2017-05-26 05:40] LABS: Basophils % 0.7 %; Eosinophils # 0.2 K/mcL (0.0-0.6); Eosinophils % 3.3 %; Hematocrit 24.5 % (35.3-44.9); Hemoglobin 7.7 g/dL (11.5-15.4); Immature Granulocytes % 0.2 % (0-4); Lymphocytes # 1.3 K/mcL (0.6-4.6); Lymphocytes % 28.9 %; Mean Corpuscular HGB Conc 31.4 g/dL (31.6-35.5); Mean Corpuscular Hemoglobin 25.7 pg (28.0-33.3); Mean Corpuscular Volume 81.7 fL (83.0-100.0); Mean Platelet Volume 9.9 fL (9.4-12.4); Monocytes # 0.8 K/mcL (0.0-1.3); Monocytes % 17.4 %; Neutrophils # 2.3 K/mcL (1.6-8.9); Nucleated Red Blood Cells 0.4 /100 WBC (0); Platelet Count 409 K/mcL (140-400); Red Cell Distribution Width 17.8 % (11.5-14.5); Segmented Neutrophils % 49.5 %
[2017-05-26 05:45] LABS: INR 1.8; Prothrombin Time 19.2 Seconds (9.4-12.1)
[2017-05-26 05:51] LABS: BUN/Creatinine Ratio 30 (6-26); Blood Urea Nitrogen 17 mg/dL (7-20); Carbon Dioxide 23 mEq/L (19-29); Chloride 105 mEq/L (98-109); Glucose 88 mg/dL (70-99); Magnesium 1.7 mg/dL (1.6-2.6); Osmolality,Calculated 279 (280-300); Phosphorous 3.6 mg/dL (2.3-4.7); Sodium 134 mEq/L (136-145); eGFR For African Americans > 60 (> 60); eGFR For Non-African Americans > 60 (> 60)
[2017-05-26 05:53] LABS: Calcium 8.2 mg/dL (8.6-10.8); Potassium 4.6 mEq/L (3.5-4.5)
[2017-05-26] MEDS: Levalbuterol Neb 0.63 MG/3 ML IH PRN ×2 (08:37→16:23)
[2017-05-26] MEDS: Acetylcysteine 10% 2 ML INHSOL IH SCH ×2 (08:37→16:22)
[2017-05-26] MEDS: Nystatin Cream 15 GM TUBE TP SCH ×3 (09:00→21:42)
[2017-05-26] MEDS: levoFLOXacin 500 MG TABLET GTUBE SCH (09:04)
[2017-05-26] MEDS: Famotidine 20 MG TABLET GTUBE SCH (09:04)
[2017-05-26] MEDS: metroNIDAZOLE 500 MG TABLET GTUBE SCH ×3 (09:05→21:43)
[2017-05-26] MEDS: Baclofen 10 MG TABLET GTUBE SCH ×2 (09:05→21:43)
[2017-05-26] MEDS: Vancomycin Oral Soln 250 MG/5 ML UDC GTUBE SCH ×4 (11:12→21:50)
[2017-05-26] MEDS ORDERED: Clinimix E 5%-15% SOLUTION 2,000 ML with MVI, adult with vitamin K 10 ML, Magnesium S... IVC SCH (17:00)
[2017-05-26] MEDS ORDERED: *HR* Warfarin 3 MG TABLET GTUBE ONE (18:00)
--- NOTE | 2017-05-26 21:52 | Internal Med Progress Note ---
Date of Encounter: 05/26/17 Time of Encounter: 10:50 - Assessment and plan (1) Ileus Current Visit: Yes Status: Acute Assessment and plan: Improved with relief of gas intermittently from PEG tube site. Plan to resume tube feeds when patient can tolerate. (2) C. difficile diarrhea Current Visit: Yes Status: Acute Assessment and plan: On Flagyl. Oral Vanc added on 05/25 as there is still abdominal distention to add coverage for C diff if was not fully treated. (3) Acute respiratory failure with hypoxia Current Visit: Yes Status: Resolved Assessment and plan: On baseline home oxygen . Treating for aspiration pneumonia. Has PEG tube due to dysphagia/aspiration. (4) Discharge planning issues Current Visit: Yes Status: Acute Assessment and plan: - Ileus needs improvement - caloric demands not at goal - INR not at goal (5) Protein-calorie malnutrition, moderate Current Visit: Yes Status: Acute Assessment and plan: Currently has ileus preventing adequate nutrition and also questionably TF intolerance. Prealbumin of 15 which is below normal, is reflective of her current malnutrition status. Continue TPN. Will restart TF when patient tolerates. (6) Anemia Current Visit: Yes Status: Chronic Assessment and plan: Chronic and stable. Likely from nutritional deficiency. Qualifiers: Anemia type: other cause Other causes of anemia: other cause, not classified Qualified Code(s): D64.89 - Other specified anemias (7) Aspiration pneumonia Current Visit: Yes Status: Acute Qualifiers: Aspiration pneumonia type: unspecified Laterality: right Lung location: lower lobe of lung Qualified Code(s): J69.0 - Pneumonitis due to inhalation of food and vomit (8) Bilateral pulmonary embolism Current Visit: Yes Status: Acute (9) Cerebral palsy Current Visit: Yes Status: Chronic Qualifiers: Cerebral palsy type: unspecified type Qualified Code(s): G80.9 - Cerebral palsy, unspecified (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 No acute events overnight. Distention now improving after air releasing from PEG tube site. - Constitutional Vitals: Temp Pulse Resp BP Pulse Ox 98.8 F 54 16 111/54 98 05/26/17 18:50 05/26/17 18:50 05/26/17 18:50 05/26/17 18:50 05/26/17 18:50 General appearance: Present: cooperative, no acute distress, underweight Exam: CVS: RRR Lungs: CTAB Abd; Soft, + distention - improved since exam yesterday, no discomfort seen on palpation. Ext: no edema Internal Medicine: Result - Labs CBC & Chem 7: 05/26/17 05:23 05/26/17 05:23 Labs: Short CBC 05/26/17 Range/Units 05:23 WBC 4.6 (4.3-11.1) K/mcL Hgb 7.7 L (11.5-15.4) g/dL Hct 24.5 L (35.3-44.9) % Plt Count 409 H (140-400) K/mcL Neutrophils # 2.3 (1.6-8.9) K/mcL BMP 05/26/17 05:23 Sodium 134 L Potassium 4.6 H D Chloride 105 Carbon Dioxide 23 BUN 17 Creatinine 0.57 Glucose 88 Calcium 8.2 L D - ABG Interpretation ABG results: ABG ABG pH 7.33 pH Units (7.32-7.45) 05/10/17 08:47 ABG pCO2 71 mmHg (35-45) H* 05/10/17 08:47 ABG pO2 84 mmHg (85-104) L 05/10/17 08:47 ABG O2 Saturation 95 % (95-98) 05/10/17 08:47 PT/INR, D-dimer PT 19.2 Seconds (9.4-12.1) H 05/26/17 05:23 D-Dimer 589 ng/mLFEU (0-500) H 05/05/17 16:10 - VTE Documentation of Mechanical Device: Intermittent pneumatic compression device Consult Discharge Plan - Plan Referrals: Chandan Serrano MD [Primary Care Provider] - Miah Jenkins MD [Partnered Physician] - 05/30/17 11:40 am
[2017-05-27] MEDS: Levalbuterol Neb 0.63 MG/3 ML IH PRN ×4 (00:21→23:48)
[2017-05-27] MEDS: Acetylcysteine 10% 2 ML INHSOL IH SCH ×4 (00:22→23:48)
[2017-05-27] MEDS: Metoclopramide 10 MG/10 ML UD.LIQ GTUBE SCH ×4 (00:35→17:46)
[2017-05-27] MEDS: *HR* Enoxaparin 30 MG/0.3 ML SYRINGE SQ SCH ×2 (05:27→17:45)
[2017-05-27 05:50] LABS: Eosinophils # 0.2 K/mcL (0.0-0.6); Eosinophils % 4.7 %; Hematocrit 24.4 % (35.3-44.9); Hemoglobin 7.6 g/dL (11.5-15.4); Immature Granulocytes % 0.2 % (0-4); Lymphocytes # 1.2 K/mcL (0.6-4.6); Lymphocytes % 28.4 %; Mean Corpuscular HGB Conc 31.1 g/dL (31.6-35.5); Mean Corpuscular Hemoglobin 25.2 pg (28.0-33.3); Mean Corpuscular Volume 80.8 fL (83.0-100.0); Monocytes # 0.7 K/mcL (0.0-1.3); Monocytes % 17.4 %; Platelet Count 338 K/mcL (140-400); Red Blood Count 3.02 M/mcL (3.82-4.97); Red Cell Distribution Width 17.6 % (11.5-14.5); Segmented Neutrophils % 48.3 %
[2017-05-27 05:55] LABS: INR 1.4
[2017-05-27 06:03] LABS: BUN/Creatinine Ratio 32 (6-26); Blood Urea Nitrogen 18 mg/dL (7-20); Calcium 8.6 mg/dL (8.6-10.8); Carbon Dioxide 23 mEq/L (19-29); Chloride 98 mEq/L (98-109); Glucose 91 mg/dL (70-99); Magnesium 1.8 mg/dL (1.6-2.6); Osmolality,Calculated 265 (280-300); Phosphorous 4.1 mg/dL (2.3-4.7); Potassium 4.4 mEq/L (3.5-4.5); eGFR For African Americans > 60 (> 60); eGFR For Non-African Americans > 60 (> 60)
[2017-05-27 06:05] LABS: Sodium 127 mEq/L (136-145)
[2017-05-27] MEDS: Scopolamine Patch 1.5 MG PATCH.TD72 TD SCH (08:34)
[2017-05-27] MEDS: Vancomycin Oral Soln 250 MG/5 ML UDC GTUBE SCH ×4 (08:34→21:02)
[2017-05-27] MEDS: metroNIDAZOLE 500 MG TABLET GTUBE SCH (08:35)
[2017-05-27] MEDS: levoFLOXacin 500 MG TABLET GTUBE SCH (08:35)
[2017-05-27] MEDS: Famotidine 20 MG TABLET GTUBE SCH (08:35)
[2017-05-27] MEDS: Baclofen 10 MG TABLET GTUBE SCH ×2 (08:35→21:01)
[2017-05-27] MEDS: Nystatin Cream 15 GM TUBE TP SCH ×3 (08:35→21:03)
[2017-05-27] MEDS ORDERED: Clinimix E 5%-15% SOLUTION 2,000 ML with MVI, adult with vitamin K 10 ML, Magnesium S... IVC SCH ×2 (17:00)
[2017-05-27] MEDS: Cefepime HCl 1,000 MG in Water for inj. (sterile) 10 ML IVP SCH (17:45)
[2017-05-27] MEDS ORDERED: *HR* Warfarin 4 MG TABLET GTUBE ONE (18:00)
[2017-05-28] MEDS: Metoclopramide 10 MG/10 ML UD.LIQ GTUBE SCH ×5 (00:30→23:01)
--- NOTE | 2017-05-28 03:17 | Internal Med Progress Note ---
Date of Encounter: 05/27/17 Time of Encounter: 14:12 - Assessment and plan (1) Transition of care performed with sharing of clinical summary Current Visit: Yes Status: Acute Assessment and plan: 42 year old female with history of cerebral palsy, chronic respiratory failure, , Factor 5 Leiden, history of DVT/PE, DI on DDAP presented with shortness of breath and wheezing. Suspected based on her prior hospitalization history that this was either PE or aspiration pneumonia. She was on Xarelto in the past but discontinued because of history of bleeding. A CTA was positive for bilateral pulmonary emboli. A swallow study was done and she was seen to aspirate. She was started on a Lovenox bridge to coumadin per Hematology recommendations. She was placed on broad spectrum antibiotics, she did still develop fevers. A PEG tube was placed due to aspirations and tube feeds were initiated. Sputum cultures returned positive for Pseudomonas, had diarrhea with + C diff so started on Cefepime and Flagyl. She had some abdominal distention, a KUB significant for ileus. Tube feeds were held and gas was releived via PEG tube which alleviated distention. TF were restarted and currently being monitored. Goal to meet her nutrition demands with current formula is 50 ml/hr of continues feeds. She will be advanced as tolerated. She is currently on TPN to supplement. INR not at goal and suspect this is related to the Vitamin K in the TPN. She developed more respiratory secretions and difficulty clearing them in the past two days despite Levaquin, scopolamine patch, and Mucomyst. A procalcitonin obtained from 05/22 recently resulted at 0.45, suggesting possible treatment failure and she was placed back on Cefepime. She has remained afebrile in that time with no leukocytosis or bandemia. - Advance TF rate as tolerated to goal. - Once TPN is held, Coumadin will be more accurately dosed. - Monitor for descalation of antibiotics. (2) Acute respiratory failure with hypoxia Current Visit: Yes Status: Resolved Assessment and plan: On baseline home oxygen . Treating for aspiration pneumonia. Has PEG tube due to dysphagia/aspiration. (3) C. difficile diarrhea Current Visit: Yes Status: Acute (4) Ileus Current Visit: Yes Status: Acute Assessment and plan: Marked improvement today with gas removal from PEG site. Will restart tube feeds at 20 cc/hr and monitor. (5) Hyponatremia Current Visit: Yes Status: Acute (6) Discharge planning issues Current Visit: Yes Status: Acute (7) Protein-calorie malnutrition, moderate Current Visit: Yes Status: Acute (8) Anemia Current Visit: Yes Status: Chronic Qualifiers: Anemia type: other cause Other causes of anemia: other cause, not classified Qualified Code(s): D64.89 - Other specified anemias (9) Aspiration pneumonia Current Visit: Yes Status: Acute Assessment and plan: Continue levofloxacin and Flagyl. Complete with 3 more days of treatment. 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 Patient still having respiratory secretions. - Constitutional Vitals: Temp Pulse Resp BP Pulse Ox 98.4 F 57 14 105/61 98 05/27/17 23:29 05/27/17 23:29 05/28/17 00:05 05/27/17 23:29 05/28/17 00:05 General appearance: Present: cooperative, no acute distress, underweight Exam: CVS: RRR Lungs: no acute respiratory distress, good air exchange throughout, no wheezing , no rales. Abd: Soft, distention is markedly improved, normoactive bowel sounds. Ext: no edema Internal Medicine: Result - Labs CBC & Chem 7: 05/27/17 05:44 05/27/17 05:44 Labs: Short CBC 05/27/17 Range/Units 05:44 WBC 4.1 L (4.3-11.1) K/mcL Hgb 7.6 L (11.5-15.4) g/dL Hct 24.4 L (35.3-44.9) % Plt Count 338 (140-400) K/mcL Neutrophils # 2.0 (1.6-8.9) K/mcL BMP 05/27/17 05:44 Sodium 127 L D Potassium 4.4 Chloride 98 Carbon Dioxide 23 BUN 18 Creatinine 0.56 L Glucose 91 Calcium 8.6 - ABG Interpretation ABG results: ABG ABG pH 7.33 pH Units (7.32-7.45) 05/10/17 08:47 ABG pCO2 71 mmHg (35-45) H* 05/10/17 08:47 ABG pO2 84 mmHg (85-104) L 05/10/17 08:47 ABG O2 Saturation 95 % (95-98) 05/10/17 08:47 PT/INR, D-dimer PT 15.0 Seconds (9.4-12.1) H 05/27/17 05:44 D-Dimer 589 ng/mLFEU (0-500) H 05/05/17 16:10 - VTE Documentation of Mechanical Device: Intermittent pneumatic compression device Consult Discharge Plan - Plan Referrals: Chandan Serrano MD [Primary Care Provider] - Miah Jenkins MD [Partnered Physician] - 05/30/17 11:40 am
[2017-05-28 04:07] LABS: Basophils # 0.1 K/mcL (0.0-0.2); Basophils % 1.1 %; Eosinophils # 0.2 K/mcL (0.0-0.6); Eosinophils % 4.9 %; Hematocrit 23.7 % (35.3-44.9); Hemoglobin 7.5 g/dL (11.5-15.4); Immature Granulocytes % 0.4 % (0-4); Lymphocytes # 1.3 K/mcL (0.6-4.6); Mean Corpuscular HGB Conc 31.6 g/dL (31.6-35.5); Mean Corpuscular Hemoglobin 25.6 pg (28.0-33.3); Mean Corpuscular Volume 80.9 fL (83.0-100.0); Mean Platelet Volume 9.7 fL (9.4-12.4); Monocytes # 0.8 K/mcL (0.0-1.3); Neutrophils # 2.3 K/mcL (1.6-8.9); Platelet Count 383 K/mcL (140-400); Red Blood Count 2.93 M/mcL (3.82-4.97); Red Cell Distribution Width 17.5 % (11.5-14.5); Segmented Neutrophils % 49.6 %
[2017-05-28 04:28] LABS: INR 1.4; Prothrombin Time 15.3 Seconds (9.4-12.1)
[2017-05-28 04:47] LABS: Phosphorous 4.6 mg/dL (2.3-4.7)
[2017-05-28] MEDS: *HR* Enoxaparin 30 MG/0.3 ML SYRINGE SQ SCH ×2 (06:19→18:04)
[2017-05-28] MEDS: Cefepime HCl 1,000 MG in Water for inj. (sterile) 10 ML IVP SCH (06:20)
[2017-05-28] MEDS: Levalbuterol Neb 0.63 MG/3 ML IH PRN ×3 (07:27→22:32)
[2017-05-28] MEDS: Acetylcysteine 10% 2 ML INHSOL IH SCH ×3 (07:27→22:32)
[2017-05-28 08:36] LABS: BUN/Creatinine Ratio 34 (6-26); Blood Urea Nitrogen 21 mg/dL (7-20); Calcium 8.7 mg/dL (8.6-10.8); Carbon Dioxide 22 mEq/L (19-29); Chloride 100 mEq/L (98-109); Glucose 93 mg/dL (70-99); Osmolality,Calculated 275 (280-300); Potassium 4.1 mEq/L (3.5-4.5); Sodium 131 mEq/L (136-145); eGFR For African Americans > 60 (> 60); eGFR For Non-African Americans > 60 (> 60)
[2017-05-28] MEDS: Baclofen 10 MG TABLET GTUBE SCH ×2 (09:29→20:27)
[2017-05-28] MEDS: Famotidine 20 MG TABLET GTUBE SCH (09:29)
[2017-05-28] MEDS: Vancomycin Oral Soln 250 MG/5 ML UDC GTUBE SCH (09:32)
[2017-05-28] MEDS: Nystatin Cream 15 GM TUBE TP SCH ×2 (09:50→15:43)
[2017-05-28] MEDS ORDERED: Vancomycin Oral Soln 250 MG/5 ML UDC GTUBE SCH (13:00)
--- NOTE | 2017-05-28 15:01 | Internal Med Progress Note ---
Date of Encounter: 05/28/17 Time of Encounter: 10:15 - Assessment and plan (1) Protein-calorie malnutrition, moderate Current Visit: Yes Status: Acute Assessment and plan: Continue TPN and tube feeds. We will wean TPN as tolerated and advance tube feeds. Dietitian following. Moderate risk for complications. (2) C. difficile diarrhea Current Visit: Yes Status: Acute Assessment and plan: Was being treated with Flagyl. Vancomycin was added yesterday. Patient not having any diarrhea. We will stop vancomycin to avoid resistance to this antibiotic. Will Complete 14 day treatment course with Flagyl as long as patient able to tolerate it. (3) Hyponatremia Current Visit: Yes Status: Acute Assessment and plan: sodium 131 today. Continue to hold desmopressin (4) Aspiration pneumonia Current Visit: Yes Status: Acute Assessment and plan: Procalcitonin 0.11. No indication for further antibiotics. Will stop Cefepime. Qualifiers: Aspiration pneumonia type: unspecified Laterality: right Lung location: lower lobe of lung Qualified Code(s): J69.0 - Pneumonitis due to inhalation of food and vomit (5) Acute respiratory failure with hypoxia Current Visit: Yes Status: Resolved (6) Bilateral pulmonary embolism Current Visit: Yes Status: Acute Assessment and plan: Continue Lovenox. INR remains subtherapeutic. INR should begin to rise once patient is off TPN as she will not be receiving multivitamins. (7) Cerebral palsy Current Visit: Yes Status: Chronic Assessment and plan: Continue prophylactic measures to prevent decubitus ulcers. 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 (9) Dysphagia, oropharyngeal phase Current Visit: Yes Status: Acute (10) Factor V Leiden Current Visit: Yes Status: Chronic (11) Hypokalemia Current Visit: Yes Status: Resolved (12) Anemia Current Visit: Yes Status: Chronic Assessment and plan: Hemoglobin levels remained stable. Qualifiers: Anemia type: other cause Other causes of anemia: other cause, not classified Qualified Code(s): D64.89 - Other specified anemias - Subjective Interval history: Patient lying in bed. Appears comfortable. Family present at bedside. Family reports patient has been having spotting in her diapers ever since her Jorge catheter was removed. This seems to be improving each day. - Constitutional Vitals: Temp Pulse Resp BP Pulse Ox 99.3 F 79 16 114/61 98 05/28/17 14:51 05/28/17 14:51 05/28/17 14:51 05/28/17 14:51 05/28/17 14:51 General appearance: Present: cooperative, no acute distress, underweight Exam: With cerebral palsy. Nonverbal - Respiratory Respiratory exam: Absent: accessory muscle use, rales, rhonchi, wheezes Additional comments: Coarse breath sounds bilaterally - Cardiovascular Cardiovascular exam: Present: RRR, +S1, +S2. Absent: diastolic murmur, gallop, rubs, systolic murmur - GI/Abdominal GI/Abdominal exam: Present: normal bowel sounds, soft, no peritoneal signs. Absent: distended, tenderness Additional comments: PEG tube in place - Neurological Exam Neurological exam: Absent: facial droop, speech deficit Additional comments: Cerebral palsy with spasticity in all 4 extremities Internal Medicine: Result - Labs CBC & Chem 7: 05/28/17 03:45 05/28/17 03:45 Labs: Short CBC 05/28/17 Range/Units 03:45 WBC 4.7 (4.3-11.1) K/mcL Hgb 7.5 L (11.5-15.4) g/dL Hct 23.7 L (35.3-44.9) % Plt Count 383 (140-400) K/mcL Neutrophils # 2.3 (1.6-8.9) K/mcL BMP 05/28/17 03:45 Sodium 131 L Potassium 4.1 Chloride 100 Carbon Dioxide 22 BUN 21 H Creatinine 0.62 Glucose 93 Calcium 8.7 - ABG Interpretation ABG results: ABG ABG pH 7.33 pH Units (7.32-7.45) 05/10/17 08:47 ABG pCO2 71 mmHg (35-45) H* 05/10/17 08:47 ABG pO2 84 mmHg (85-104) L 05/10/17 08:47 ABG O2 Saturation 95 % (95-98) 05/10/17 08:47 PT/INR, D-dimer PT 15.3 Seconds (9.4-12.1) H 05/28/17 03:45 D-Dimer 589 ng/mLFEU (0-500) H 05/05/17 16:10 - VTE Documentation of Mechanical Device: Intermittent pneumatic compression device Consult Discharge Plan - Plan Referrals: Chandan Serrano MD [Primary Care Provider] - Miah Jenkins MD [Partnered Physician] - 05/30/17 11:40 am
[2017-05-28] MEDS: metroNIDAZOLE 500 MG TABLET GTUBE SCH ×2 (15:43→20:27)
[2017-05-28] MEDS ORDERED: Nystatin Cream 15 GM TUBE TP PRN (16:27)
[2017-05-28] MEDS ORDERED: *HR* Warfarin 4 MG TABLET GTUBE ONE (18:00)
[2017-05-29] MEDS: *HR* Enoxaparin 30 MG/0.3 ML SYRINGE SQ SCH ×2 (05:42→18:35)
[2017-05-29] MEDS: Metoclopramide 10 MG/10 ML UD.LIQ GTUBE SCH ×3 (05:43→18:37)
[2017-05-29] MEDS: Levalbuterol Neb 0.63 MG/3 ML IH PRN ×3 (05:54→22:11)
[2017-05-29] MEDS: Acetylcysteine 10% 2 ML INHSOL IH SCH ×3 (05:55→22:12)
[2017-05-29 06:04] LABS: Basophils % 1.3 %; Eosinophils # 0.2 K/mcL (0.0-0.6); Eosinophils % 4.9 %; Hematocrit 20.7 % (35.3-44.9); Hemoglobin 6.5 g/dL (11.5-15.4); INR 1.5; Lymphocytes # 0.9 K/mcL (0.6-4.6); Lymphocytes % 28.9 %; Mean Corpuscular HGB Conc 31.4 g/dL (31.6-35.5); Mean Corpuscular Hemoglobin 25.1 pg (28.0-33.3); Mean Corpuscular Volume 79.9 fL (83.0-100.0); Mean Platelet Volume 10.3 fL (9.4-12.4); Platelet Count 300 K/mcL (140-400); Prothrombin Time 16.5 Seconds (9.4-12.1); Red Blood Count 2.59 M/mcL (3.82-4.97); Red Cell Distribution Width 17.3 % (11.5-14.5); Segmented Neutrophils % 43.9 %
[2017-05-29 06:08] LABS: Monocytes # 0.7 K/mcL (0.0-1.3); Neutrophils # 1.4 K/mcL (1.6-8.9)
[2017-05-29 06:38] LABS: Anisocytosis 1+ (Not Present); Platelet Estimate Slight Decrease (Normal); Poikilocytosis 1+ (Not Present)
[2017-05-29] MEDS: metroNIDAZOLE 500 MG TABLET GTUBE SCH ×3 (09:05→21:56)
[2017-05-29] MEDS: Famotidine 20 MG TABLET GTUBE SCH (09:06)
[2017-05-29] MEDS: Baclofen 10 MG TABLET GTUBE SCH ×2 (09:06→21:55)
[2017-05-29 12:10] LABS: BUN/Creatinine Ratio 36 (6-26); Blood Urea Nitrogen 21 mg/dL (7-20); Calcium 8.8 mg/dL (8.6-10.8); Carbon Dioxide 26 mEq/L (19-29); Chloride 101 mEq/L (98-109); Glucose 93 mg/dL (70-99); Osmolality,Calculated 277 (280-300); Potassium 4.4 mEq/L (3.5-4.5); Sodium 132 mEq/L (136-145); eGFR For African Americans > 60 (> 60); eGFR For Non-African Americans > 60 (> 60)
[2017-05-29] MEDS ORDERED: 0.9 % Sodium Chloride 500 ML ONE (13:25)
--- NOTE | 2017-05-29 14:38 | Internal Med Progress Note ---
Date of Encounter: 05/29/17 Time of Encounter: 10:20 - Assessment and plan (1) Protein-calorie malnutrition, moderate Current Visit: Yes Status: Acute Assessment and plan: Continue tube feeds as tolerated. TPN stopped now. We will attempt bolus feeds today. If patient is a brittle to tolerate, she may be ready for discharge tomorrow. (2) C. difficile diarrhea Current Visit: Yes Status: Acute Assessment and plan: On Flagyl. Will complete treatment tomorrow. (3) Hyponatremia Current Visit: Yes Status: Acute Assessment and plan: Stable. Sodium 132 today. Continue to hold DDAVP (4) Aspiration pneumonia Current Visit: Yes Status: Acute Assessment and plan: completed antibiotic treatment. Qualifiers: Aspiration pneumonia type: unspecified Laterality: right Lung location: lower lobe of lung Qualified Code(s): J69.0 - Pneumonitis due to inhalation of food and vomit (5) Acute respiratory failure with hypoxia Current Visit: Yes Status: Resolved (6) Bilateral pulmonary embolism Current Visit: Yes Status: Acute Assessment and plan: Continue Lovenox and Coumadin. INR is 1.5 today (7) Cerebral palsy Current Visit: Yes Status: Chronic Assessment and plan: Supportive care. 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 (9) Dysphagia, oropharyngeal phase Current Visit: Yes Status: Acute Assessment and plan: On tube feeds. Keep nothing by mouth. (10) Factor V Leiden Current Visit: Yes Status: Chronic Assessment and plan: On anticoagulation with Lovenox and Coumadin (11) Hypokalemia Current Visit: Yes Status: Resolved (12) Anemia Current Visit: Yes Status: Chronic Assessment and plan: Hemoglobin 6.5 today. We will transfuse 1 unit packed red blood cells. Qualifiers: Anemia type: other cause Other causes of anemia: other cause, not classified Qualified Code(s): D64.89 - Other specified anemias - Subjective Interval history: Patient doing well overall. Tolerating tube feeds. No acute issues overnight. - Constitutional Vitals: Temp Pulse Resp BP Pulse Ox 98.3 F 57 16 90/45 98 05/29/17 13:49 05/29/17 13:49 05/29/17 13:49 05/29/17 13:49 05/29/17 13:49 General appearance: Present: cooperative, no acute distress, underweight - Respiratory Respiratory exam: Present: CTAB. Absent: accessory muscle use, rales, rhonchi, wheezes - Cardiovascular Cardiovascular exam: Present: RRR, +S1, +S2. Absent: diastolic murmur, gallop, rubs, systolic murmur - GI/Abdominal GI/Abdominal exam: Present: distended, normal bowel sounds, soft, no peritoneal signs. Absent: tenderness - Extremities Exam Extremities exam: Present: warm, radial pulses palpable and symmetrical. Absent : calf tenderness, cyanotic, pedal edema Internal Medicine: Result - Labs CBC & Chem 7: 05/29/17 Unknown 05/29/17 11:50 Labs: Short CBC 05/29/17 Range/Units Unknown WBC 3.1 L (4.3-11.1) K/mcL Hgb 6.5 L (11.5-15.4) g/dL Hct 20.7 L (35.3-44.9) % Plt Count 300 (140-400) K/mcL Neutrophils # 1.4 L (1.6-8.9) K/mcL BMP 05/29/17 11:50 Sodium 132 L Potassium 4.4 Chloride 101 Carbon Dioxide 26 BUN 21 H Creatinine 0.59 Glucose 93 Calcium 8.8 - ABG Interpretation ABG results: ABG ABG pH 7.33 pH Units (7.32-7.45) 05/10/17 08:47 ABG pCO2 71 mmHg (35-45) H* 05/10/17 08:47 ABG pO2 84 mmHg (85-104) L 05/10/17 08:47 ABG O2 Saturation 95 % (95-98) 05/10/17 08:47 PT/INR, D-dimer PT 16.5 Seconds (9.4-12.1) H 05/29/17 Unknown D-Dimer 589 ng/mLFEU (0-500) H 05/05/17 16:10 - VTE Documentation of Mechanical Device: Intermittent pneumatic compression device Consult Discharge Plan - Plan Referrals: Chandan Serrano MD [Primary Care Provider] - Miah Jenkins MD [Partnered Physician] - 05/30/17 11:40 am
[2017-05-29] MEDS ORDERED: *HR* Warfarin 4 MG TABLET GTUBE ONE (18:00)
[2017-05-30] MEDS: Metoclopramide 10 MG/10 ML UD.LIQ GTUBE SCH ×4 (00:47→16:52)
[2017-05-30] MEDS: *HR* Enoxaparin 30 MG/0.3 ML SYRINGE SQ SCH ×2 (05:55→16:53)
[2017-05-30 06:27] LABS: Basophils # 0.1 K/mcL (0.0-0.2); Basophils % 1.2 %; Eosinophils # 0.2 K/mcL (0.0-0.6); Eosinophils % 3.7 %; Immature Granulocytes % 0.2 % (0-4); Lymphocytes # 1.2 K/mcL (0.6-4.6); Lymphocytes % 22.3 %; Mean Corpuscular Hemoglobin 26.1 pg (28.0-33.3); Mean Corpuscular Volume 81.5 fL (83.0-100.0); Mean Platelet Volume 10.6 fL (9.4-12.4); Monocytes # 0.7 K/mcL (0.0-1.3); Monocytes % 14.1 %; Platelet Count 345 K/mcL (140-400); Red Blood Count 3.68 M/mcL (3.82-4.97); Red Cell Distribution Width 16.7 % (11.5-14.5); Segmented Neutrophils % 58.5 %
[2017-05-30 06:28] LABS: Hemoglobin 9.6 g/dL (11.5-15.4)
[2017-05-30 06:34] LABS: INR 2.1
[2017-05-30 06:42] LABS: BUN/Creatinine Ratio 37 (6-26); Blood Urea Nitrogen 23 mg/dL (7-20); Calcium 8.9 mg/dL (8.6-10.8); Carbon Dioxide 27 mEq/L (19-29); Chloride 102 mEq/L (98-109); Glucose 86 mg/dL (70-99); Osmolality,Calculated 283 (280-300); Potassium 4.1 mEq/L (3.5-4.5); Sodium 135 mEq/L (136-145); eGFR For African Americans > 60 (> 60); eGFR For Non-African Americans > 60 (> 60)
[2017-05-30] MEDS: Levalbuterol Neb 0.63 MG/3 ML IH PRN ×2 (08:16→15:52)
[2017-05-30] MEDS: Acetylcysteine 10% 2 ML INHSOL IH SCH ×2 (08:16→15:52)
[2017-05-30] MEDS: Scopolamine Patch 1.5 MG PATCH.TD72 TD SCH (08:43)
[2017-05-30] MEDS: metroNIDAZOLE 500 MG TABLET GTUBE SCH ×2 (08:43→14:05)
[2017-05-30] MEDS: Famotidine 20 MG TABLET GTUBE SCH (08:44)
[2017-05-30] MEDS: Baclofen 10 MG TABLET GTUBE SCH (08:44)
[2017-05-30 11:16] VITALS: BP 103/67
--- NOTE | 2017-05-30 13:57 | Discharge Summary ---
Date of Encounter: 05/30/17 Time of Encounter: 13:57 - Discharge Diagnosis (1) Acute respiratory failure with hypoxia Priority: Primary Status: Resolved (2) Protein-calorie malnutrition, moderate Priority: Secondary Status: Acute (3) C. 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 Priority: Secondary Status: Acute (9) Dysphagia, oropharyngeal phase Priority: Secondary Status: Acute (10) Factor V Leiden Priority: Secondary Status: Chronic (11) Hypokalemia Priority: Secondary Status: Resolved (12) Anemia Priority: Secondary Status: Chronic Qualifiers: Anemia type: other cause Other causes of anemia: other cause, not classified Qualified Code(s): D64.89 - Other specified anemias - Discharge Medications Prescriptions: Metoclopramide [Reglan] 5 mg GTUBE Q6HR #90 ud.liq Polyethylene Glycol 3350 [MiraLAX] 17 gm GTUBE DAILY PRN #30 powd.pack PRN Reason: Constipation Quetiapine Fumarate [Seroquel] 25 mg GTUBE HS #30 tablet Scopolamine Patch [Transderm-Scop] 1.5 mg TD Q72H #10 patch.td72 Warfarin [Coumadin] 2 mg GTUBE 1800 #30 tablet Home Medications: Albuterol Neb [Proventil Neb] 2.5 mg IH TID 02/13/16 [History] Baclofen [Lioresal] 10 mg PO BID 02/13/16 [History] Acetaminophen [Tylenol Susp] 650 mg GTUBE Q6HR PRN ud.liq 05/30/17 [Rx] Desmopressin Acetate [Ddavp] 0.4 mg GTUBE TID #0 tablet 05/30/17 [Rx] Metoclopramide [Reglan] 5 mg GTUBE Q6HR #90 ud.liq 05/30/17 [Rx] Polyethylene Glycol 3350 [MiraLAX] 17 gm GTUBE DAILY PRN #30 powd.pack 05/30/17 [Rx] Quetiapine Fumarate [Seroquel] 25 mg GTUBE HS #30 tablet 05/30/17 [Rx] Scopolamine Patch [Transderm-Scop] 1.5 mg TD Q72H #10 patch.td72 05/30/17 [Rx] Simvastatin [Zocor] 20 mg GTUBE HS tablet 05/30/17 [Rx] Warfarin [Coumadin] 2 mg GTUBE 1800 #30 tablet 05/30/17 [Rx] Allergies/Adverse Reactions: 3 Allergy/AdvReac Type Severity Reaction Status Date / Time No Known Allergies Allergy Verified 05/05/17 16:09 Date of admission: 05/05/17 21:12 Primary care physician: Chandan Serrano MD Consults: 05/08/17 08:37 Consult to Speech Therapy [CONS] Stat Comment: Evaluate, develop and implement POC Reason for Consult: Concern for aspiration pneumonia, swallow study from 2 days ago recommends honey thick liquids. Please complete a modified barium swallow Time Notified: 08:38 Call Completed: No 05/09/17 12:27 Consult to Physician [CONS] Routine Consulting Provider: Singh Michel Reason for Consult: Peg tube placement Time Notified: 12:25 Call Completed: Yes 05/10/17 09:49 consult to furnace hand [Consult to Nutrition] [CONS] Routine Comment: Consulting Provider: NUTRITION Reason for Dietary Consult: TF Start and Manage 05/13/17 11:43 Consult to Palliative Care [CONS] Routine Comment: Consulting Provider: Palliative Care Finger Reason for Consult: questions re: palliative measures for patient in the future Call Completed: No 05/23/17 07:44 Consult to Gastroenterology [CONS] Routine Consulting Provider: Gastroenterology Nasra Reason for Consult: Ileus s/p PEG 05/10 Call Completed: Yes 05/23/17 10:31 consult to furnace hand [Consult to Nutrition] [CONS] Routine Comment: Consulting Provider: NUTRITION Reason for Dietary Consult: TPN Start and Manage Discharging clinician: Darin Murray Anticipated date of discharge: 05/30/17 - Patient Status Disposition: Home Health Service Condition: Fair Functional capacity at discharge: bed bound Overall status at discharge: patient is progressing back to baseline - Discharge Instructions Instructions: Pulmonary Embolism (DC), Acute Respiratory Distress Syndrome (DC) , Anemia (GEN), Pneumonia (DC) Follow Up With: Chandan Serrano MD [Primary Care Provider] - 06/04/17 3:15 pm (in 1-2 weeks) Miah Jenkins MD [Partnered Physician] - 05/30/17 11:40 am Forms: ED Satisfaction Letter Additional Instructions: Hold desmopressin until sodium level greater than 135 - Diet and Activity Activity: as per physical therapy, wear oxygen at all times Diet: other (tube feeds) Hospital course: Ms. Fairchild is a 42 year old female patient with history of cerebral palsy and spasticity admitted here initially with bilateral pulmonary embolism. Has history of factor V Leiden and hypercoagulability. She was started on anticoagulation with Lovenox and coumadin. She then developed acute respiratory failure and required endotracheal intubation and was transferred to ICU. She has since then recovered slowly, was extubated and has now been transferred back to the floor. She underwent placement of PEG tube. She was also started on antibiotics for aspiration pneumonia. Stool was positive for C. difficile and patient was treated with Flagyl. She also developed aspiration pneumonia and was treated with antibiotics and has completed antibiotic treatment course. She was started on tube feeds but was unable to tolerate them initially. As such she was placed on TPN to supplement her nutrition. Tube feeds were stool recently restarted back and have been titrated upwards since. She is not able to tolerate bolus tube feeds will be able to be discharged home on this regimen. Patient has a history of diabetes insipidus and is on DDAVP. However she developed hyponatremia while she was receiving TPN and tube feeds initially. This medication has therefore been held. Her sodium levels are now improving and her DDAVP can be restarted once her sodium levels have normalized. Patient's INR is also therapeutic and she will continue to take Coumadin and follow up with Coumadin clinic to keep her INR between 2 and 3. She will be discharged with home health to help with her multiple care needs. Patient did receive 1 unit of packed red blood cell transfusion yesterday. She has chronic anemia likely due to nutritional deficiency. - Time Spent with Patient Total time spent providing and/or coordinating discharge services: Greater than 30 minutes (40 min) - Constitutional Vitals: Temp Pulse Resp BP Pulse Ox 99.6 F 70 17 103/67 97 05/30/17 11:12 05/30/17 11:12 05/30/17 11:12 05/30/17 11:12 05/30/17 11:12 General appearance: Present: cooperative, no acute distress, underweight Exam: Nonverbal due to cerebral palsy - Respiratory Respiratory exam: Present: CTAB. Absent: accessory muscle use, rales, rhonchi, wheezes - GI/Abdominal GI/Abdominal exam: Present: normal bowel sounds, soft, no peritoneal signs. Absent: distended, tenderness - Extremities Exam Extremities exam: Present: warm, radial pulses palpable and symmetrical. Absent : calf tenderness, cyanotic, pedal edema - Neurological Exam Neurological exam: Absent: facial droop, speech deficit Additional comments: Cerebral palsy with spasticity in all 4 extremities - Skin Skin exam: Present: dry, intact - VTE Documentation of Mechanical Device: Intermittent pneumatic compression device
--- NOTE | 2017-05-30 14:20 | Physician Discharge Referral ---
Home Health/Hosp Referral Info Transfer to: Home Health Provider in Charge Post Discharge: PCP - Diagnosis (1) Acute respiratory failure with hypoxia Priority: Primary Status: Resolved (2) Protein-calorie malnutrition, moderate Priority: Secondary Status: Acute (3) C. 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 For more information, call the [employer] Quit Line at 2-992-VVGO-NOW. - Diet/Nutrition Diet/Nutrition: List: Tube feeds - Activity Activity Orders: Bedrest - Services Needed Following services are medically necessary services: Nursing, Home Health Aide, Physical Therapy, Occupational Therapy Home Care Orders: Half can TwoCal (120 ml) per PEG tube 5 times daily 50 mL free water flush before and after each feed with supplies and tube feed education. Please get basic panel on 05/31/17 and 06/03/17 Please get PT/INR checked on 05/31/17 and as needed to keep INR between 2 and 3. - Transfer Medications Prescriptions: Metoclopramide [Reglan] 5 mg GTUBE Q6HR #90 ud.liq Polyethylene Glycol 3350 [MiraLAX] 17 gm GTUBE DAILY PRN #30 powd.pack PRN Reason: Constipation Quetiapine Fumarate [Seroquel] 25 mg GTUBE HS #30 tablet Scopolamine Patch [Transderm-Scop] 1.5 mg TD Q72H #10 patch.td72 Warfarin [Coumadin] 2 mg GTUBE 1800 #30 tablet Home Medications: Albuterol Neb [Proventil Neb] 2.5 mg IH TID 02/13/16 [History] Baclofen [Lioresal] 10 mg PO BID 02/13/16 [History] Acetaminophen [Tylenol Susp] 650 mg GTUBE Q6HR PRN ud.liq 05/30/17 [Rx] Desmopressin Acetate [Ddavp] 0.4 mg GTUBE TID #0 tablet 05/30/17 [Rx] Metoclopramide [Reglan] 5 mg GTUBE Q6HR #90 ud.liq 05/30/17 [Rx] Polyethylene Glycol 3350 [MiraLAX] 17 gm GTUBE DAILY PRN #30 powd.pack 05/30/17 [Rx] Quetiapine Fumarate [Seroquel] 25 mg GTUBE HS #30 tablet 05/30/17 [Rx] Scopolamine Patch [Transderm-Scop] 1.5 mg TD Q72H #10 patch.td72 05/30/17 [Rx] Simvastatin [Zocor] 20 mg GTUBE HS tablet 05/30/17 [Rx] Warfarin [Coumadin] 2 mg GTUBE 1800 #30 tablet 05/30/17 [Rx] Allergies/Adverse Reactions: 3 Allergy/AdvReac Type Severity Reaction Status Date / Time No Known Allergies Allergy Verified 05/05/17 16:09 Certification: Further, I certify that my clinical findings support that this patient is homebound (i.e. absences from home require considerable and taxing effort and are for medical reasons or episcopal services or infrequently or short duration when for other reasons) because: Homebound Reason: Patient requires assistance of a person or device to safely leave home Attestation: My signature below is to certify that this patient is under my care and that I, or nurse practitioner, or a physician's dairy and food laboratory assistant working with me, has a face-to -face encounter with this patient.
[2017-05-30] MEDS ORDERED: *HR* Warfarin 1 MG TABLET GTUBE ONE (16:00)
== END 2017-05-30 17:15 | disposition home health service (06) | DRG 208 ==
LOC: 2NENU 15:54 → EMEROO 15:54 → 2NENU 19:47 → SUATTDRO 21:12 → ICNU 05-09 07:29 → 3ANU 05-15 19:40
PROVIDERS: ADMIT Nurse Practitioner; ATTEND Internal Medicine